=== PATIENT | female | born 1960 | race Caucasian/White ===

== ENCOUNTER 2017-05-04 10:34 | Inpatient (IN) | payer MEDICAID, OTHER ==
[~2017-05-04] VITALS: Ht 167.6 cm; Wt 63.5 kg
[~2017-05-04 10:34] MED LIST: LISI-662 PO
[2017-05-04 11:05] LABS: BASOPHILS % (AUTO) 1.4 % (0.0-2.0); EOSINOPHILS % (AUTO) 1.9 % (1.0-6.0); HEMATOCRIT 32.3 % (36-46); HEMOGLOBIN 10.3 g/dL (12.0-16.0); LYMPHOCYTES # (AUTO) 1.5 K/uL (1.0-4.8); LYMPHOCYTES % (AUTO) 27.5 % (22.0-44.0); MEAN CORPUSCULAR HEMOGLOBIN 27.8 pg (26.0-34.0); MEAN CORPUSCULAR HGB CONC 31.9 G/dL (31.0-37.0); MEAN CORPUSCULAR VOLUME 87 fL (80-100); MONOCYTES # (AUTO) 0.4 K/uL (0.1-1.0); MONOCYTES % (AUTO) 6.5 % (2.0-9.0); NEUTROPHILS # (AUTO) 3.5 K/uL (1.8-7.7); NEUTROPHILS % (AUTO) 62.7 % (40.0-70.0); PLATELET COUNT (AUTO) 414 K/uL (150-450); RED CELL DISTRIBUTION WIDTH 20.7 % (11.5-14.5); WHITE BLOOD COUNT (AUTO) 5.5 K/uL (4.5-11.0)
[2017-05-04] MEDS ORDERED: SUCR1TAB PO (11:14)
[2017-05-04] MEDS ORDERED: TIZA4TAB4 PO (11:14)
[2017-05-04] MEDS ORDERED: AMLO-511 PO (11:14)
[2017-05-04] MEDS ORDERED: FAMO20 PO (11:14)
[2017-05-04] MEDS ORDERED: PANT40TA25 PO (11:14)
[2017-05-04] MEDS ORDERED: CORTSOL AU (11:14)
[2017-05-04] MEDS ORDERED: ONDA4 PO (11:14)
[2017-05-04] MEDS ORDERED: QUET200T PO (11:14)
[2017-05-04] MEDS ORDERED: MELO-273 PO (11:14)
[2017-05-04] MEDS ORDERED: GABA-531 PO (11:14)
[2017-05-04] MEDS ORDERED: DSS100 PO (11:14)
[2017-05-04] MEDS ORDERED: DIAZ2 PO (11:14)
[2017-05-04] MEDS ORDERED: LEVO150 PO (11:14)
[2017-05-04] MEDS ORDERED: LISI1TAB11 PO (11:14)
[2017-05-04] MEDS ORDERED: FERR-89 PO (11:14)
[2017-05-04] MEDS ORDERED: PREM125 PO (11:14)
[2017-05-04] MEDS ORDERED: ARIP10TA14 PO (11:14)
[2017-05-04 11:21] LABS: ALANINE AMINOTRANSFERASE 17 U/L (12-78); ALBUMIN 3.1 g/dL (3.4-5.0); ANION GAP 4 mmol/L (8-16); ASPARTATE AMINOTRANSFERASE 13 U/L (15-37); BILIRUBIN,TOTAL 0.2 mg/dL (0.1-1.0); CALCIUM, TOTAL 8.4 mg/dL (8.8-10.5); CARBON DIOXIDE 29 mmol/L (22-29); CHLORIDE 100 mmol/L (98-107); GLOMERULAR FILTR. RATE CALC > 60 mL/min (>60); POTASSIUM 3.7 mmol/L (3.5-5.1); SODIUM SERUM 133 mmol/L (136-145); UREA NITROGEN, BLOOD 17 mg/dL (7-18)
[2017-05-04] MEDS ORDERED: ZOLPIDEM TARTRATE 10 MG TABLET PO PRN (11:45)
[2017-05-04 12:41] LABS: RBC MORPHOLOGY COMMENT ABNORMAL RBC MORPH
[2017-05-04] MEDS ORDERED: HYDROCODONE/ACETAMINOPHEN 5-325 MG TABLET PO ONE (12:45)
[2017-05-04] MEDS: LORazepam 2 MG TABLET PO PRN ×3 (12:48→22:16)
[2017-05-04 16:32] VITALS: BP 115/73
[2017-05-04] MEDS: OxyCODONE HCL/ACETAMINOPHEN 5-325 MG TABLET PO PRN (16:32)
[2017-05-04 17:32] VITALS: BP 112/72
[2017-05-05 01:33] VITALS: BP 131/95
[2017-05-05] MEDS: HALOPERIDOL 5 MG TABLET PO PRN (01:34)
[2017-05-05 04:00] VITALS: BP 129/91
[2017-05-05] MEDS: OxyCODONE HCL/ACETAMINOPHEN 5-325 MG TABLET PO PRN ×3 (04:01→16:21)
[2017-05-05] MEDS ORDERED: LEVOTHYROXINE SODIUM 150 MCG TABLET PO SCH (06:30)
[2017-05-05] MEDS: FERROUS SULFATE 325 MG EC TABLET PO SCH ×2 (06:40→16:20)
[2017-05-05 08:39] VITALS: BP 121/78
[2017-05-05] MEDS: HYDROCHLOROTHIAZIDE 25 MG TABLET PO SCH (08:44)
[2017-05-05] MEDS: ESTROGENS,CONJUGATED 1.25 MG TABLET PO SCH (08:45)
[2017-05-05] MEDS: DOCUSATE SODIUM 100 MG CAPSULE PO SCH (08:45)
[2017-05-05] MEDS: AmLODIPine BESYLATE 5 MG TABLET PO SCH (08:45)
[2017-05-05] MEDS: MELOXICAM 7.5 MG TABLET PO SCH (08:45)
[2017-05-05] MEDS: FAMOTIDINE 20 MG TABLET PO SCH (08:45)
[2017-05-05 08:48] LABS: HEMOGLOBIN A1C 5.2 % (4.5-6.2)
[2017-05-05] MEDS ORDERED: ARIPiprazole 10 MG TABLET PO SCH (09:00)
[2017-05-05 09:24] LABS: CHOL/HDL RATIO 2.3 (3.9-5.7); THYROID STIMULATING HORMONE 0.11 uIU/mL (0.36-3.74)
[2017-05-05 09:45] VITALS: BP 138/75
[2017-05-05] MEDS: LORazepam 2 MG TABLET PO PRN ×3 (09:45→18:42)
[2017-05-05 16:31] VITALS: BP 112/73
[2017-05-05] MEDS: NICOTINE 21 MG/24 HOUR PATCH TD SCH (17:57)
[2017-05-05] MEDS: QUEtiapine FUMARATE 200 MG TABLET PO SCH (19:58)
[2017-05-06] VITALS (8 sets, daily range): BP systolic 107–144; BP diastolic 76–93
[2017-05-06] MEDS: OxyCODONE HCL/ACETAMINOPHEN 5-325 MG TABLET PO PRN ×3 (00:03→16:53)
[2017-05-06] MEDS: LORazepam 2 MG TABLET PO PRN ×3 (02:35→16:51)
[2017-05-06] MEDS: LEVOTHYROXINE SODIUM 125 MCG TABLET PO SCH (06:43)
[2017-05-06] MEDS: FERROUS SULFATE 325 MG EC TABLET PO SCH ×2 (06:43→16:51)
[2017-05-06] MEDS: SERTRALINE HCL 50 MG TABLET PO SCH (08:38)
[2017-05-06] MEDS: DOCUSATE SODIUM 100 MG CAPSULE PO SCH (08:38)
[2017-05-06] MEDS: AmLODIPine BESYLATE 5 MG TABLET PO SCH (08:38)
[2017-05-06] MEDS: FAMOTIDINE 20 MG TABLET PO SCH (08:39)
[2017-05-06] MEDS: MELOXICAM 7.5 MG TABLET PO SCH (08:39)
[2017-05-06] MEDS: NICOTINE 21 MG/24 HOUR PATCH TD SCH (08:39)
[2017-05-06] MEDS: ESTROGENS,CONJUGATED 1.25 MG TABLET PO SCH (08:39)
[2017-05-06] MEDS: HYDROCHLOROTHIAZIDE 25 MG TABLET PO SCH (08:39)
[2017-05-06] MEDS: HALOPERIDOL 5 MG TABLET PO PRN (10:27)
[2017-05-06 10:43] LABS: HEPATITIS Bs ANTIGEN SCREEN P Negative (Negative); HEPATITIS C AB SCREEN <0.1 s/co ratio (0.0-0.9)
[2017-05-06] MEDS: QUEtiapine FUMARATE 200 MG TABLET PO SCH (20:06)
[2017-05-07] VITALS (8 sets, daily range): BP systolic 108–120; BP diastolic 68–91
[2017-05-07] MEDS: OxyCODONE HCL/ACETAMINOPHEN 5-325 MG TABLET PO PRN ×3 (05:44→18:25)
[2017-05-07] MEDS: LEVOTHYROXINE SODIUM 125 MCG TABLET PO SCH (06:20)
[2017-05-07] MEDS: FERROUS SULFATE 325 MG EC TABLET PO SCH ×2 (06:20→17:30)
[2017-05-07] MEDS: MELOXICAM 7.5 MG TABLET PO SCH (06:57)
[2017-05-07] MEDS: NICOTINE 21 MG/24 HOUR PATCH TD SCH (08:50)
[2017-05-07] MEDS: DOCUSATE SODIUM 100 MG CAPSULE PO SCH (08:51)
[2017-05-07] MEDS: AmLODIPine BESYLATE 5 MG TABLET PO SCH (08:51)
[2017-05-07] MEDS: ESTROGENS,CONJUGATED 1.25 MG TABLET PO SCH (08:51)
[2017-05-07] MEDS: SERTRALINE HCL 50 MG TABLET PO SCH (08:51)
[2017-05-07] MEDS: LORazepam 2 MG TABLET PO PRN ×3 (08:51→18:25)
[2017-05-07] MEDS: FAMOTIDINE 20 MG TABLET PO SCH (08:51)
[2017-05-07] MEDS: HYDROCHLOROTHIAZIDE 25 MG TABLET PO SCH (08:51)
[2017-05-07] MEDS: HALOPERIDOL 5 MG TABLET PO PRN (12:48)
[2017-05-07] MEDS: NEOMYCIN/POLYMYXIN B/HYDROCORT 10 ML OTIC SOLUTION AU SCH ×2 (17:30→20:13)
[2017-05-07] MEDS: QUEtiapine FUMARATE 200 MG TABLET PO SCH (20:13)
[2017-05-08] VITALS (8 sets, daily range): BP systolic 111–143; BP diastolic 61–89
[2017-05-08] MEDS: OxyCODONE HCL/ACETAMINOPHEN 5-325 MG TABLET PO PRN ×4 (01:01→22:39)
[2017-05-08] MEDS: LORazepam 2 MG TABLET PO PRN ×3 (03:57→17:24)
[2017-05-08] MEDS: FERROUS SULFATE 325 MG EC TABLET PO SCH ×2 (06:45→17:00)
[2017-05-08] MEDS: LEVOTHYROXINE SODIUM 125 MCG TABLET PO SCH (06:45)
[2017-05-08] MEDS: MELOXICAM 7.5 MG TABLET PO SCH (06:46)
[2017-05-08] MEDS: NICOTINE 21 MG/24 HOUR PATCH TD SCH (08:51)
[2017-05-08] MEDS: FAMOTIDINE 20 MG TABLET PO SCH (08:53)
[2017-05-08] MEDS: HYDROCHLOROTHIAZIDE 25 MG TABLET PO SCH (08:53)
[2017-05-08] MEDS: SERTRALINE HCL 50 MG TABLET PO SCH (08:53)
[2017-05-08] MEDS: ESTROGENS,CONJUGATED 1.25 MG TABLET PO SCH (08:53)
[2017-05-08] MEDS: AmLODIPine BESYLATE 5 MG TABLET PO SCH (08:53)
[2017-05-08] MEDS: NEOMYCIN/POLYMYXIN B/HYDROCORT 10 ML OTIC SOLUTION AU SCH ×4 (08:54→20:24)
[2017-05-08] MEDS: DOCUSATE SODIUM 100 MG CAPSULE PO SCH (08:55)
[2017-05-08] MEDS: HALOPERIDOL 5 MG TABLET PO PRN (12:59)
[2017-05-08] MEDS ORDERED: ONDANSETRON HCL 4 MG TABLET PO PRN (15:15)
[2017-05-08] MEDS: QUEtiapine FUMARATE 200 MG TABLET PO SCH (20:24)
[2017-05-09] MEDS: LEVOTHYROXINE SODIUM 125 MCG TABLET PO SCH (06:32)
[2017-05-09] MEDS: FERROUS SULFATE 325 MG EC TABLET PO SCH ×2 (06:33→17:10)
[2017-05-09 06:41] VITALS: BP 122/81
[2017-05-09] MEDS: MELOXICAM 7.5 MG TABLET PO SCH (07:09)
[2017-05-09] MEDS: OxyCODONE HCL/ACETAMINOPHEN 5-325 MG TABLET PO PRN ×3 (07:44→21:31)
[2017-05-09 08:00] LABS: BASOPHILS % (AUTO) 1.2 % (0.0-2.0); EOSINOPHILS % (AUTO) 4.8 % (1.0-6.0); HEMATOCRIT 33.1 % (36-46); LYMPHOCYTES # (AUTO) 1.5 K/uL (1.0-4.8); LYMPHOCYTES % (AUTO) 27.9 % (22.0-44.0); MEAN CORPUSCULAR HEMOGLOBIN 29.5 pg (26.0-34.0); MEAN CORPUSCULAR HGB CONC 33.3 G/dL (31.0-37.0); MEAN CORPUSCULAR VOLUME 89 fL (80-100); MONOCYTES # (AUTO) 0.3 K/uL (0.1-1.0); MONOCYTES % (AUTO) 5.3 % (2.0-9.0); NEUTROPHILS # (AUTO) 3.4 K/uL (1.8-7.7); NEUTROPHILS % (AUTO) 60.8 % (40.0-70.0); PLATELET COUNT (AUTO) 365 K/uL (150-450); RED BLOOD CELL COUNT(AUTO) 3.73 MIL/uL (4.00-5.20); RED CELL DISTRIBUTION WIDTH 20.6 % (11.5-14.5); WHITE BLOOD COUNT (AUTO) 5.6 K/uL (4.5-11.0)
[2017-05-09 08:15] VITALS: BP 112/85
[2017-05-09] MEDS: NICOTINE 21 MG/24 HOUR PATCH TD SCH (08:23)
[2017-05-09] MEDS: ESTROGENS,CONJUGATED 1.25 MG TABLET PO SCH (08:23)
[2017-05-09] MEDS: FAMOTIDINE 20 MG TABLET PO SCH (08:23)
[2017-05-09] MEDS: SERTRALINE HCL 100 MG TABLET PO SCH (08:23)
[2017-05-09] MEDS: NEOMYCIN/POLYMYXIN B/HYDROCORT 10 ML OTIC SOLUTION AU SCH ×4 (08:23→20:07)
[2017-05-09] MEDS: HYDROCHLOROTHIAZIDE 25 MG TABLET PO SCH (08:24)
[2017-05-09] MEDS: AmLODIPine BESYLATE 5 MG TABLET PO SCH (08:24)
[2017-05-09] MEDS: DOCUSATE SODIUM 100 MG CAPSULE PO SCH (08:24)
[2017-05-09 08:25] LABS: BILIRUBIN,TOTAL 0.2 mg/dL (0.1-1.0); CALCIUM, TOTAL 8.6 mg/dL (8.8-10.5); CREATININE 1.02 mg/dL (0.60-1.30); POTASSIUM 4.9 mmol/L (3.5-5.1); THYROID STIMULATING HORMONE 0.29 uIU/mL (0.36-3.74); TOTAL PROTEIN, SERUM 6.1 g/dL (6.4-8.2)
[2017-05-09 08:44] VITALS: BP 110/82
[2017-05-09] MEDS: LORazepam 2 MG TABLET PO PRN ×2 (10:13→14:49)
[2017-05-09] MEDS: HALOPERIDOL 5 MG TABLET PO PRN (12:38)
[2017-05-09] MEDS ORDERED: BENZOCAINE 10% 7 GM GEL TP PRN (12:45)
[2017-05-09 14:45] VITALS: BP 112/83
[2017-05-09 16:18] VITALS: BP 106/72
[2017-05-09] MEDS: AMOXICILLIN TRIHYDRATE 500 MG CAPSULE PO SCH (17:10)
[2017-05-09] MEDS: QUEtiapine FUMARATE 200 MG TABLET PO SCH (20:06)
[2017-05-09 21:31] VITALS: BP 110/77
[2017-05-10 01:15] VITALS: BP 107/79
[2017-05-10] MEDS: LORazepam 2 MG TABLET PO PRN ×3 (01:15→12:16)
[2017-05-10 04:55] VITALS: BP 118/90
[2017-05-10] MEDS: OxyCODONE HCL/ACETAMINOPHEN 5-325 MG TABLET PO PRN (04:57)
[2017-05-10] MEDS: FERROUS SULFATE 325 MG EC TABLET PO SCH (06:21)
[2017-05-10] MEDS: LEVOTHYROXINE SODIUM 125 MCG TABLET PO SCH (06:21)
[2017-05-10] MEDS: MELOXICAM 7.5 MG TABLET PO SCH (07:09)
[2017-05-10] MEDS: NEOMYCIN/POLYMYXIN B/HYDROCORT 10 ML OTIC SOLUTION AU SCH ×2 (08:41→12:16)
[2017-05-10] MEDS: FAMOTIDINE 20 MG TABLET PO SCH (08:42)
[2017-05-10] MEDS: ESTROGENS,CONJUGATED 1.25 MG TABLET PO SCH (08:42)
[2017-05-10] MEDS: DOCUSATE SODIUM 100 MG CAPSULE PO SCH (08:42)
[2017-05-10] MEDS: AMOXICILLIN TRIHYDRATE 500 MG CAPSULE PO SCH ×2 (08:42→12:16)
[2017-05-10] MEDS: HYDROCHLOROTHIAZIDE 25 MG TABLET PO SCH (08:43)
[2017-05-10] MEDS: AmLODIPine BESYLATE 5 MG TABLET PO SCH (08:43)
[2017-05-10] MEDS: SERTRALINE HCL 100 MG TABLET PO SCH (08:43)
[2017-05-10] MEDS: NICOTINE 21 MG/24 HOUR PATCH TD SCH (08:43)
[2017-05-10 08:51] VITALS: BP 128/84
[2017-05-10] MEDS: HALOPERIDOL 5 MG TABLET PO PRN (09:10)
[2017-05-10] MEDS ORDERED: SERT100T12 PO (10:34)
== END 2017-05-10 13:00 | disposition home or self-care (01) | DRG 753 ==
LOC: EMS 10:41 → EEVIPCON 10:41 → B2S 14:26 → UNDODISIN 17:10
DX: F31.4 Bipolar disorder, current episode depressed, severe, without psychotic features (principal); R45.851 Suicidal ideations; I10 Essential (primary) hypertension; E03.9 Hypothyroidism, unspecified; D64.9 Anemia, unspecified; K21.9 Gastro-esophageal reflux disease without esophagitis; M54.9 Dorsalgia, unspecified; G89.29 Other chronic pain; Z88.8 Allergy status to other drugs, medicaments and biological substances
CPT/HCPCS: 80074; 82306; 82607; 82746; 83036; 84439; 84443; 87081; 99285; G0480

== ENCOUNTER 2017-05-06 12:44 | Emergency (ER) | payer MEDICAID, OTHER ==
[~2017-05-06] VITALS: Ht 172.7 cm; Wt 63.6 kg
[~2017-05-06 12:44] MED LIST changes: +AMLO-511 PO; +ARIP10TA14 PO; +CORTSOL AU; +DIAZ2 PO; +DSS100 PO; +FAMO20 PO; +FERR-89 PO; +GABA-531 PO; +LEVO150 PO; -LISI-662 PO; +LISI1TAB11 PO; +MELO-273 PO; +ONDA4 PO; +PANT40TA25 PO; +PREM125 PO; +QUET200T PO; +SUCR1TAB PO; +TIZA4TAB4 PO
[2017-05-06 13:51] LABS: BASOPHILS % (AUTO) 1.1 % (0.0-2.0); EOSINOPHILS % (AUTO) 2.9 % (1.0-6.0); HEMATOCRIT 31.8 % (36-46); HEMOGLOBIN 10.5 g/dL (12.0-16.0); LYMPHOCYTES # (AUTO) 1.7 K/uL (1.0-4.8); LYMPHOCYTES % (AUTO) 23.9 % (22.0-44.0); MEAN CORPUSCULAR HEMOGLOBIN 28.9 pg (26.0-34.0); MEAN CORPUSCULAR HGB CONC 32.9 G/dL (31.0-37.0); MEAN CORPUSCULAR VOLUME 88 fL (80-100); MONOCYTES # (AUTO) 0.3 K/uL (0.1-1.0); MONOCYTES % (AUTO) 4.8 % (2.0-9.0); NEUTROPHILS # (AUTO) 4.9 K/uL (1.8-7.7); NEUTROPHILS % (AUTO) 67.3 % (40.0-70.0); PLATELET COUNT (AUTO) 391 K/uL (150-450); RED BLOOD CELL COUNT(AUTO) 3.63 MIL/uL (4.00-5.20); WHITE BLOOD COUNT (AUTO) 7.3 K/uL (4.5-11.0)
[2017-05-06 14:00] LABS: CALCIUM, TOTAL 8.9 mg/dL (8.8-10.5); CREATININE 1.12 mg/dL (0.60-1.30); POTASSIUM 5.2 mmol/L (3.5-5.1)
[2017-05-06 14:06] LABS: ALBUMIN 3.2 g/dL (3.4-5.0); BILIRUBIN,TOTAL 0.2 mg/dL (0.1-1.0); TOTAL PROTEIN, SERUM 6.2 g/dL (6.4-8.2)
[2017-05-06 14:08] LABS: APPEARANCE,URINE CLEAR (CLEAR); GLUCOSE, URINE (UA) NEGATIVE (NEGATIVE); KETONES,URINE NEGATIVE (NEGATIVE); LEUKOCYTE ESTERASE ,URINE NEGATIVE (NEGATIVE); OCCULT BLOOD,URINE NEGATIVE (NEGATIVE); PH,URINE 5.5 (5.0-8.0); PROTEIN,URINE NEGATIVE (NEGATIVE)
[2017-05-06 14:09] LABS: ADD UA MICROSCOPIC NO
[2017-05-06] MEDS ORDERED: LORazepam 1 MG TABLET PO ONE (15:30)
[2017-05-06] MEDS ORDERED: ONDANSETRON HCL 4 MG TABLET PO ONE (15:30)
[2017-05-06] MEDS ORDERED: HYDROCODONE/ACETAMINOPHEN 5-325 MG TABLET PO ONE (15:30)
[2017-05-06 15:37] VITALS: BP 111/75
== END 2017-05-06 16:23 | disposition home or self-care (01) ==
LOC: EMS 12:47
DX: R07.9 Chest pain, unspecified (principal); R05 Cough; I10 Essential (primary) hypertension; F17.210 Nicotine dependence, cigarettes, uncomplicated; Z88.8 Allergy status to other drugs, medicaments and biological substances
CPT/HCPCS: 36415; 71010; 80053; 81003; 84484; 85025; 93005; 99285; Q0162

== ENCOUNTER 2018-01-23 08:49 | Emergency (ER) | payer OTHER ==
[~2018-01-23] VITALS: Ht 167.6 cm; Wt 63.6 kg
[~2018-01-23 08:49] MED LIST changes: -ARIP10TA14 PO; -DIAZ2 PO; -GABA-531 PO; -LISI1TAB11 PO; +MELO-107 PO; -MELO-273 PO; -ONDA4 PO; -PANT40TA25 PO; +SERT100T12 PO; -SUCR1TAB PO; -TIZA4TAB4 PO
[2018-01-23] MEDS ORDERED: BUDE10.2 IH (09:01)
[2018-01-23] MEDS ORDERED: ONDANSETRON HCL 4 MG/2 ML VIAL IVP ONE (09:30)
[2018-01-23] MEDS ORDERED: MORPHINE SULFATE 4 MG/ML SYRINGE IVP ONE (09:30)
[2018-01-23] MEDS ORDERED: ASPIRIN 81 MG CHEWABLE TABLET PO ONE (09:30)
[2018-01-23 09:54] LABS: BASOPHILS % (AUTO) 0.6 % (0.0-2.0); EOSINOPHILS % (AUTO) 3.3 % (1.0-6.0); HEMATOCRIT 31.3 % (36-46); HEMOGLOBIN 10.5 g/dL (12.0-16.0); LYMPHOCYTES # (AUTO) 1.1 K/uL (1.0-4.8); LYMPHOCYTES % (AUTO) 15.6 % (22.0-44.0); MEAN CORPUSCULAR HEMOGLOBIN 28.9 pg (26.0-34.0); MEAN CORPUSCULAR HGB CONC 33.5 G/dL (31.0-37.0); MEAN CORPUSCULAR VOLUME 86 fL (80-100); MONOCYTES # (AUTO) 0.3 K/uL (0.1-1.0); MONOCYTES % (AUTO) 4.8 % (2.0-9.0); NEUTROPHILS # (AUTO) 5.4 K/uL (1.8-7.7); NEUTROPHILS % (AUTO) 75.7 % (40.0-70.0); PLATELET COUNT (AUTO) 493 K/uL (150-450); RED BLOOD CELL COUNT(AUTO) 3.64 MIL/uL (4.00-5.20); RED CELL DISTRIBUTION WIDTH 18.1 % (11.5-14.5)
[2018-01-23 10:02] LABS: ANION GAP 10 mmol/L (8-16); CALCIUM, TOTAL 9.1 mg/dL (8.8-10.5); CARBON DIOXIDE 26 mmol/L (22-29); CHLORIDE 101 mmol/L (98-107); CREATININE 0.84 mg/dL (0.60-1.30); GLOMERULAR FILTR. RATE CALC > 60 mL/min (>60); GLUCOSE,RANDOM 79 mg/dL (70-110); POTASSIUM 4.3 mmol/L (3.5-5.1); SODIUM SERUM 137 mmol/L (136-145); UREA NITROGEN, BLOOD 14 mg/dL (7-18)
[2018-01-23 10:08] LABS: ALANINE AMINOTRANSFERASE 17 U/L (12-78); ALBUMIN 3.4 g/dL (3.4-5.0); ALKALINE PHOSPHATASE 115 U/L (46-116); ASPARTATE AMINOTRANSFERASE 13 U/L (15-37); BILIRUBIN,TOTAL 0.3 mg/dL (0.1-1.0); LIPASE 163 U/L (73-393); TOTAL PROTEIN, SERUM 7.4 g/dL (6.4-8.2)
[2018-01-23 10:17] LABS: B-TYPE NATRIURETIC PEPTIDE 36 pg/mL (0-100)
[2018-01-23] MEDS ORDERED: KETOROLAC TROMETHAMINE 30 MG/ML VIAL IVP ONE (10:30)
[2018-01-23] MEDS ORDERED: AZITHROMYCIN 250 MG TABLET PO ONE (10:30)
[2018-01-23 11:20] LABS: INFLUENZA TYPE A NEGATIVE FOR TYPE A (NEGATIVE); INFLUENZA TYPE B NEGATIVE FOR TYPE B (NEGATIVE)
[2018-01-23 13:07] VITALS: BP 104/78
[2018-01-24] MEDS ORDERED: LEVO125 PO (12:12)
== END 2018-01-23 13:14 | disposition home or self-care (01) ==
LOC: EMS 08:49
DX: J44.9 Chronic obstructive pulmonary disease, unspecified (principal); J18.9 Pneumonia, unspecified organism; I10 Essential (primary) hypertension; E03.9 Hypothyroidism, unspecified; Z88.8 Allergy status to other drugs, medicaments and biological substances
CPT/HCPCS: 36415; 71046; 80053; 83690; 83880; 84484; 85025; 87804; 93005; 96374; 96375; 99285; J1885; J2270; J2405

== ENCOUNTER 2018-01-24 09:33 | Emergency (ER) | payer OTHER ==
[~2018-01-24] VITALS: Ht 167.6 cm; Wt 63.6 kg
[~2018-01-24 09:33] MED LIST changes: +BUDE10.2 IH; -CORTSOL AU; -DSS100 PO; -FAMO20 PO; -FERR-89 PO; -QUET200T PO
[2018-01-24] MEDS ORDERED: KETOROLAC TROMETHAMINE 30 MG/ML VIAL IVP ONE (10:45)
[2018-01-24] MEDS ORDERED: SODIUM CHLORIDE 0.9% 1,000 ML IV ONE (10:45)
[2018-01-24] MEDS ORDERED: ONDANSETRON HCL 4 MG/2 ML VIAL IVP ONE ×2 (10:45→15:00)
[2018-01-24] MEDS ORDERED: LEVO125 PO (12:12)
[2018-01-24 12:13] LABS: BASOPHILS % (AUTO) 0.4 % (0.0-2.0); EOSINOPHILS % (AUTO) 0.1 % (1.0-6.0); HEMATOCRIT 29.8 % (36-46); HEMOGLOBIN 9.9 g/dL (12.0-16.0); LYMPHOCYTES # (AUTO) 0.4 K/uL (1.0-4.8); LYMPHOCYTES % (AUTO) 4.9 % (22.0-44.0); MEAN CORPUSCULAR HEMOGLOBIN 28.6 pg (26.0-34.0); MEAN CORPUSCULAR HGB CONC 33.3 G/dL (31.0-37.0); MEAN CORPUSCULAR VOLUME 86 fL (80-100); MONOCYTES # (AUTO) 0.1 K/uL (0.1-1.0); MONOCYTES % (AUTO) 0.7 % (2.0-9.0); NEUTROPHILS # (AUTO) 7.7 K/uL (1.8-7.7); PLATELET COUNT (AUTO) 468 K/uL (150-450); RED BLOOD CELL COUNT(AUTO) 3.47 MIL/uL (4.00-5.20); RED CELL DISTRIBUTION WIDTH 18.1 % (11.5-14.5)
[2018-01-24 12:14] LABS: NEUTROPHILS % (AUTO) 93.9 % (40.0-70.0)
[2018-01-24] MEDS ORDERED: MORPHINE SULFATE 2 MG/ML SYRINGE IVP ONE ×2 (12:15→14:45)
[2018-01-24 12:25] LABS: INR 0.9 (0.9-1.1); PROTHROMBIN TIME 9.8 SEC (9.4-11.6)
[2018-01-24 12:28] LABS: ANION GAP 9 mmol/L (8-16); CALCIUM, TOTAL 8.5 mg/dL (8.8-10.5); CARBON DIOXIDE 24 mmol/L (22-29); CHLORIDE 103 mmol/L (98-107); CREATININE 0.88 mg/dL (0.60-1.30); GLOMERULAR FILTR. RATE CALC > 60 mL/min (>60); GLUCOSE,RANDOM 99 mg/dL (70-110); POTASSIUM 4.6 mmol/L (3.5-5.1); SODIUM SERUM 136 mmol/L (136-145); UREA NITROGEN, BLOOD 18 mg/dL (7-18)
[2018-01-24 12:33] LABS: ALANINE AMINOTRANSFERASE 13 U/L (12-78); ALKALINE PHOSPHATASE 97 U/L (46-116); ASPARTATE AMINOTRANSFERASE 15 U/L (15-37); BILIRUBIN,TOTAL 0.3 mg/dL (0.1-1.0); CREATINE KINASE, TOTAL 39 U/L (26-192); TOTAL PROTEIN, SERUM 6.6 g/dL (6.4-8.2)
[2018-01-24 12:54] LABS: B-TYPE NATRIURETIC PEPTIDE 38 pg/mL (0-100)
[2018-01-24 13:15] LABS: APPEARANCE,URINE CLEAR (CLEAR); BILIRUBIN,URINE NEGATIVE (NEGATIVE); GLUCOSE, URINE (UA) NEGATIVE (NEGATIVE); KETONES,URINE TRACE mg/dL (NEGATIVE); LEUKOCYTE ESTERASE ,URINE NEGATIVE (NEGATIVE); NITRATE,URINE NEGATIVE (NEGATIVE); OCCULT BLOOD,URINE NEGATIVE (NEGATIVE); PROTEIN,URINE NEGATIVE (NEGATIVE)
[2018-01-24] MEDS ORDERED: IPRATROPIUM BROMIDE 0.5 MG/2.5 ML NEB SOLUTION NEB ONE (13:30)
[2018-01-24] MEDS ORDERED: ALBUTEROL SULFATE 2.5 MG/0.5 ML NEB SOLUTION NEB ONE (13:30)
[2018-01-24 15:43] VITALS: BP 148/85
== END 2018-01-24 16:09 | disposition home or self-care (01) ==
LOC: EMS 09:35
DX: R11.2 Nausea with vomiting, unspecified (principal); R07.89 Other chest pain; M54.2 Cervicalgia; R10.84 Generalized abdominal pain; J44.9 Chronic obstructive pulmonary disease, unspecified; I10 Essential (primary) hypertension; E03.9 Hypothyroidism, unspecified
CPT/HCPCS: 36415; 71045; 80053; 81003; 82550; 83880; 84484; 85025; 85610; 85730; 93005; 94640; 96361; 96374; 96375; 96376; 99285; J1885; J2270; J2405; J7030; J7613

== ENCOUNTER 2018-02-05 09:23 | Inpatient (IN) | payer OTHER ==
[~2018-02-05] VITALS: Ht 167.6 cm; Wt 58.9 kg
[~2018-02-05 09:23] MED LIST changes: +LEVO125 PO; -LEVO150 PO
[2018-02-05 10:13] LABS: BASOPHILS % (AUTO) 1.4 % (0.0-2.0); EOSINOPHILS % (AUTO) 3.8 % (1.0-6.0); HEMATOCRIT 29.6 % (36-46); HEMOGLOBIN 9.9 g/dL (12.0-16.0); LYMPHOCYTES # (AUTO) 1.8 K/uL (1.0-4.8); LYMPHOCYTES % (AUTO) 30.4 % (22.0-44.0); MEAN CORPUSCULAR HEMOGLOBIN 28.4 pg (26.0-34.0); MEAN CORPUSCULAR HGB CONC 33.3 G/dL (31.0-37.0); MEAN CORPUSCULAR VOLUME 85 fL (80-100); MONOCYTES # (AUTO) 0.4 K/uL (0.1-1.0); MONOCYTES % (AUTO) 6.7 % (2.0-9.0); NEUTROPHILS # (AUTO) 3.5 K/uL (1.8-7.7); NEUTROPHILS % (AUTO) 57.7 % (40.0-70.0); PLATELET COUNT (AUTO) 410 K/uL (150-450); RED BLOOD CELL COUNT(AUTO) 3.47 MIL/uL (4.00-5.20); RED CELL DISTRIBUTION WIDTH 16.5 % (11.5-14.5)
[2018-02-05 10:24] LABS: ANION GAP 12 mmol/L (8-16); CALCIUM, TOTAL 8.7 mg/dL (8.8-10.5); CARBON DIOXIDE 23 mmol/L (22-29); CHLORIDE 101 mmol/L (98-107); CREATININE 0.83 mg/dL (0.60-1.30); GLOMERULAR FILTR. RATE CALC > 60 mL/min (>60); GLUCOSE,RANDOM 87 mg/dL (70-110); POTASSIUM 3.9 mmol/L (3.5-5.1); SODIUM SERUM 136 mmol/L (136-145); UREA NITROGEN, BLOOD 10 mg/dL (7-18)
[2018-02-05 10:26] LABS: INR 0.9 (0.9-1.1); PROTHROMBIN TIME 9.5 SEC (9.4-11.6)
[2018-02-05 10:31] LABS: ALANINE AMINOTRANSFERASE 15 U/L (12-78); ALBUMIN 3.2 g/dL (3.4-5.0); ALKALINE PHOSPHATASE 72 U/L (46-116); ASPARTATE AMINOTRANSFERASE 13 U/L (15-37); BILIRUBIN,TOTAL 0.3 mg/dL (0.1-1.0); CREATINE KINASE, TOTAL 39 U/L (26-192); TOTAL PROTEIN, SERUM 6.4 g/dL (6.4-8.2)
[2018-02-05 10:35] LABS: B-TYPE NATRIURETIC PEPTIDE 18 pg/mL (0-100)
[2018-02-05 10:39] LABS: BILIRUBIN,URINE NEGATIVE (NEGATIVE); GLUCOSE, URINE (UA) NEGATIVE (NEGATIVE); KETONES,URINE NEGATIVE (NEGATIVE); LEUKOCYTE ESTERASE ,URINE NEGATIVE (NEGATIVE); NITRATE,URINE NEGATIVE (NEGATIVE); OCCULT BLOOD,URINE NEGATIVE (NEGATIVE); PH,URINE 5.5 (5.0-8.0); PROTEIN,URINE NEGATIVE (NEGATIVE)
[2018-02-05 10:40] LABS: APPEARANCE,URINE HAZY (CLEAR)
[2018-02-05 10:50] LABS: LIPASE 227 U/L (73-393)
[2018-02-05] MEDS ORDERED: MORPHINE SULFATE 4 MG/ML SYRINGE IVP ONE (11:15)
[2018-02-05] MEDS ORDERED: 0.9% SODIUM CHLORIDE 10 ML SYRINGE IVP PRN (11:45)
[2018-02-05] MEDS ORDERED: ACETAMINOPHEN 325 MG TABLET PO PRN (11:45)
[2018-02-05] MEDS ORDERED: ONDANSETRON HCL 4 MG/2 ML VIAL IVP PRN ×2 (11:45→18:45)
[2018-02-05 13:00] VITALS: BP 113/79
[2018-02-05] MEDS ORDERED: HYDROCODONE/ACETAMINOPHEN 10-325 MG TABLET PO PRN (14:15)
[2018-02-05 15:14] VITALS: BP 98/60
[2018-02-05] MEDS ORDERED: ACETAMINOPHEN/CODEINE 300-30 MG TABLET PO PRN (18:45)
[2018-02-05] MEDS ORDERED: HYDROCODONE/ACETAMINOPHEN 5-325 MG TABLET PO PRN (18:45)
[2018-02-05] MEDS: AmLODIPine BESYLATE 5 MG TABLET PO SCH (18:45)
[2018-02-05] MEDS: SERTRALINE HCL 100 MG TABLET PO SCH (18:45)
[2018-02-05] MEDS ORDERED: BISACODYL 10 MG RECTAL RECTAL SUPPOSITORY PR PRN (18:45)
[2018-02-05] MEDS: MELOXICAM 7.5 MG TABLET PO SCH (18:45)
[2018-02-05] MEDS: ESTROGENS,CONJUGATED 1.25 MG TABLET PO SCH (18:45)
[2018-02-05] MEDS: ENOXAPARIN SODIUM 40 MG/0.4 ML PF SYRINGE SQ SCH (19:25)
[2018-02-05] MEDS: PANTOPRAZOLE SODIUM 40 MG DR TABLET PO SCH (19:26)
[2018-02-05] MEDS: MORPHINE SULFATE 2 MG/ML SYRINGE IVP PRN ×2 (19:29→23:01)
[2018-02-05 19:56] VITALS: BP 124/75
[2018-02-05 20:03] LABS: BASOPHILS % (AUTO) 1.5 % (0.0-2.0); EOSINOPHILS % (AUTO) 4.5 % (1.0-6.0); HEMATOCRIT 28.1 % (36-46); HEMOGLOBIN 9.2 g/dL (12.0-16.0); LYMPHOCYTES # (AUTO) 2.7 K/uL (1.0-4.8); LYMPHOCYTES % (AUTO) 33.4 % (22.0-44.0); MEAN CORPUSCULAR HEMOGLOBIN 28.2 pg (26.0-34.0); MEAN CORPUSCULAR HGB CONC 32.9 G/dL (31.0-37.0); MEAN CORPUSCULAR VOLUME 86 fL (80-100); MONOCYTES # (AUTO) 0.7 K/uL (0.1-1.0); MONOCYTES % (AUTO) 8.5 % (2.0-9.0); NEUTROPHILS # (AUTO) 4.2 K/uL (1.8-7.7); NEUTROPHILS % (AUTO) 52.1 % (40.0-70.0); PLATELET COUNT (AUTO) 365 K/uL (150-450); RED BLOOD CELL COUNT(AUTO) 3.28 MIL/uL (4.00-5.20); RED CELL DISTRIBUTION WIDTH 16.2 % (11.5-14.5)
[2018-02-05 20:14] LABS: ALBUMIN 2.7 g/dL (3.4-5.0); BILIRUBIN,TOTAL 0.2 mg/dL (0.1-1.0); CALCIUM, TOTAL 8.3 mg/dL (8.8-10.5); CREATININE 1.1 mg/dL (0.60-1.30); INR 0.9 (0.9-1.1); POTASSIUM 4.4 mmol/L (3.5-5.1); PROTHROMBIN TIME 9.5 SEC (9.4-11.6); TOTAL PROTEIN, SERUM 5.8 g/dL (6.4-8.2)
[2018-02-05] MEDS: DOCUSATE SODIUM 100 MG CAPSULE PO SCH (21:27)
[2018-02-05] MEDS: HYDROCODONE/ACETAMINOPHEN 10-325 MG TABLET PO PRN (21:28)
[2018-02-05] MEDS: BUDESONIDE/FORMOTEROL FUMARATE 160-4.5 MCG/PUFF 6.9 GM INHALER IH SCH (21:28)
[2018-02-05] MEDS: TEMAZEPAM 15 MG CAPSULE PO PRN (22:04)
[2018-02-05] MEDS: IPRATROPIUM BROMIDE 0.5 MG/2.5 ML NEB SOLUTION NEB SCH (23:09)
[2018-02-05] MEDS: ALBUTEROL SULFATE 2.5 MG/0.5 ML NEB SOLUTION NEB SCH (23:09)
[2018-02-05 23:41] VITALS: BP 106/72
[2018-02-06] MEDS: MORPHINE SULFATE 2 MG/ML SYRINGE IVP PRN ×7 (03:02→22:01)
[2018-02-06 04:44] VITALS: BP 129/81
[2018-02-06] MEDS: HYDROCODONE/ACETAMINOPHEN 10-325 MG TABLET PO PRN ×4 (04:58→20:11)
[2018-02-06 06:05] LABS: BASOPHILS % (AUTO) 1.3 % (0.0-2.0); EOSINOPHILS % (AUTO) 5.1 % (1.0-6.0); HEMATOCRIT 28.6 % (36-46); HEMOGLOBIN 9.5 g/dL (12.0-16.0); LYMPHOCYTES # (AUTO) 2.6 K/uL (1.0-4.8); LYMPHOCYTES % (AUTO) 40.3 % (22.0-44.0); MEAN CORPUSCULAR HEMOGLOBIN 28.6 pg (26.0-34.0); MEAN CORPUSCULAR HGB CONC 33.4 G/dL (31.0-37.0); MEAN CORPUSCULAR VOLUME 86 fL (80-100); MONOCYTES # (AUTO) 0.5 K/uL (0.1-1.0); MONOCYTES % (AUTO) 7.9 % (2.0-9.0); NEUTROPHILS % (AUTO) 45.4 % (40.0-70.0); PLATELET COUNT (AUTO) 335 K/uL (150-450); RED BLOOD CELL COUNT(AUTO) 3.33 MIL/uL (4.00-5.20); RED CELL DISTRIBUTION WIDTH 16.1 % (11.5-14.5)
[2018-02-06] MEDS: LEVOTHYROXINE SODIUM 125 MCG TABLET PO SCH (06:05)
[2018-02-06 06:31] LABS: ALANINE AMINOTRANSFERASE 11 U/L (12-78); ALBUMIN 2.6 g/dL (3.4-5.0); ALKALINE PHOSPHATASE 65 U/L (46-116); ANION GAP 8 mmol/L (8-16); ASPARTATE AMINOTRANSFERASE 12 U/L (15-37); BILIRUBIN,TOTAL 0.2 mg/dL (0.1-1.0); CALCIUM, TOTAL 8.4 mg/dL (8.8-10.5); CARBON DIOXIDE 26 mmol/L (22-29); CHLORIDE 103 mmol/L (98-107); CREATININE 0.89 mg/dL (0.60-1.30); GLOMERULAR FILTR. RATE CALC > 60 mL/min (>60); GLUCOSE,RANDOM 86 mg/dL (70-110); POTASSIUM 4.1 mmol/L (3.5-5.1); SODIUM SERUM 137 mmol/L (136-145); TOTAL PROTEIN, SERUM 5.7 g/dL (6.4-8.2); UREA NITROGEN, BLOOD 18 mg/dL (7-18)
[2018-02-06 07:33] VITALS: BP 102/71
[2018-02-06] MEDS: AmLODIPine BESYLATE 5 MG TABLET PO SCH (08:05)
[2018-02-06] MEDS: PANTOPRAZOLE SODIUM 40 MG DR TABLET PO SCH (08:05)
[2018-02-06] MEDS: ENOXAPARIN SODIUM 40 MG/0.4 ML PF SYRINGE SQ SCH (08:05)
[2018-02-06] MEDS: DOCUSATE SODIUM 100 MG CAPSULE PO SCH ×2 (08:05→20:10)
[2018-02-06] MEDS: SERTRALINE HCL 100 MG TABLET PO SCH (08:06)
[2018-02-06] MEDS: MELOXICAM 7.5 MG TABLET PO SCH (08:06)
[2018-02-06] MEDS: ESTROGENS,CONJUGATED 1.25 MG TABLET PO SCH (08:06)
[2018-02-06] MEDS: BUDESONIDE/FORMOTEROL FUMARATE 160-4.5 MCG/PUFF 6.9 GM INHALER IH SCH ×2 (08:07→20:10)
[2018-02-06] MEDS: IPRATROPIUM BROMIDE 0.5 MG/2.5 ML NEB SOLUTION NEB SCH ×3 (08:50→20:29)
[2018-02-06] MEDS: ALBUTEROL SULFATE 2.5 MG/0.5 ML NEB SOLUTION NEB SCH ×3 (08:50→20:29)
[2018-02-06 11:26] VITALS: BP 96/56
[2018-02-06 15:42] VITALS: BP 97/64
[2018-02-06 19:42] VITALS: BP 108/65
[2018-02-06] MEDS: TEMAZEPAM 15 MG CAPSULE PO PRN (20:49)
[2018-02-07] VITALS (8 sets, daily range): BP systolic 94–138; BP diastolic 60–88
[2018-02-07] MEDS: MORPHINE SULFATE 2 MG/ML SYRINGE IVP PRN ×7 (01:17→21:15)
[2018-02-07] MEDS: LEVOTHYROXINE SODIUM 125 MCG TABLET PO SCH (06:55)
[2018-02-07] MEDS: ALBUTEROL SULFATE 2.5 MG/0.5 ML NEB SOLUTION NEB SCH ×3 (08:42→21:04)
[2018-02-07] MEDS: IPRATROPIUM BROMIDE 0.5 MG/2.5 ML NEB SOLUTION NEB SCH ×3 (08:42→21:04)
[2018-02-07] MEDS: MELOXICAM 7.5 MG TABLET PO SCH (10:05)
[2018-02-07] MEDS: SERTRALINE HCL 100 MG TABLET PO SCH (10:05)
[2018-02-07] MEDS: DOCUSATE SODIUM 100 MG CAPSULE PO SCH ×2 (10:06→20:08)
[2018-02-07] MEDS: AmLODIPine BESYLATE 5 MG TABLET PO SCH (10:06)
[2018-02-07] MEDS: PANTOPRAZOLE SODIUM 40 MG DR TABLET PO SCH (10:06)
[2018-02-07] MEDS: HYDROCODONE/ACETAMINOPHEN 10-325 MG TABLET PO PRN ×2 (10:07→14:07)
[2018-02-07] MEDS: ESTROGENS,CONJUGATED 1.25 MG TABLET PO SCH (10:07)
[2018-02-07] MEDS: ENOXAPARIN SODIUM 40 MG/0.4 ML PF SYRINGE SQ SCH (10:09)
[2018-02-07] MEDS: BUDESONIDE/FORMOTEROL FUMARATE 160-4.5 MCG/PUFF 6.9 GM INHALER IH SCH ×2 (10:09→21:00)
[2018-02-07] MEDS: TEMAZEPAM 15 MG CAPSULE PO PRN (20:07)
[2018-02-08] MEDS: MORPHINE SULFATE 2 MG/ML SYRINGE IVP PRN ×5 (00:19→12:35)
[2018-02-08 04:45] VITALS: BP 99/68
[2018-02-08] MEDS: LEVOTHYROXINE SODIUM 125 MCG TABLET PO SCH (06:22)
[2018-02-08] MEDS: ALBUTEROL SULFATE 2.5 MG/0.5 ML NEB SOLUTION NEB SCH (07:38)
[2018-02-08] MEDS: IPRATROPIUM BROMIDE 0.5 MG/2.5 ML NEB SOLUTION NEB SCH (07:38)
[2018-02-08 08:04] VITALS: BP 108/62
[2018-02-08] MEDS: ENOXAPARIN SODIUM 40 MG/0.4 ML PF SYRINGE SQ SCH (08:35)
[2018-02-08] MEDS: ESTROGENS,CONJUGATED 1.25 MG TABLET PO SCH (08:35)
[2018-02-08] MEDS: AmLODIPine BESYLATE 5 MG TABLET PO SCH (08:36)
[2018-02-08] MEDS: MELOXICAM 7.5 MG TABLET PO SCH (08:36)
[2018-02-08] MEDS: SERTRALINE HCL 100 MG TABLET PO SCH (08:36)
[2018-02-08] MEDS: PANTOPRAZOLE SODIUM 40 MG DR TABLET PO SCH (08:36)
[2018-02-08] MEDS: DOCUSATE SODIUM 100 MG CAPSULE PO SCH (08:41)
[2018-02-08] MEDS: BUDESONIDE/FORMOTEROL FUMARATE 160-4.5 MCG/PUFF 6.9 GM INHALER IH SCH (10:29)
[2018-02-08 11:14] VITALS: BP 109/75
[2018-02-08] MEDS ORDERED: PERCT10 PO (13:50)
== END 2018-02-08 14:40 | disposition home or self-care (01) | DRG 203 ==
LOC: EMS 09:26 → 5S 11:44 → 6N 02-06 23:19
PROVIDERS: ADMIT Internal Medicine; ATTEND Internal Medicine
DX: R07.89 Other chest pain (principal); I10 Essential (primary) hypertension; M94.0 Chondrocostal junction syndrome [Tietze]; E03.9 Hypothyroidism, unspecified; F41.9 Anxiety disorder, unspecified; G89.4 Chronic pain syndrome; M50.30 Other cervical disc degeneration, unspecified cervical region; F32.9 Major depressive disorder, single episode, unspecified; J44.9 Chronic obstructive pulmonary disease, unspecified; Z98.1 Arthrodesis status; Z82.49 Family history of ischemic heart disease and other diseases of the circulatory system; Q67.6 Pectus excavatum; Z88.8 Allergy status to other drugs, medicaments and biological substances
CPT/HCPCS: 87081; 93005; 94640; 96374; 99285; J1650; J2270

== ENCOUNTER 2018-03-07 21:03 | Emergency (ER) | payer OTHER ==
[~2018-03-07] VITALS: Ht 172.7 cm; Wt 62.7 kg
[~2018-03-07 21:03] MED LIST changes: -AMLO-511 PO; -MELO-107 PO; -PREM125 PO
[2018-03-07 21:30] LABS: BASOPHILS % (AUTO) 1.2 % (0.0-2.0); EOSINOPHILS % (AUTO) 1.3 % (1.0-6.0); HEMATOCRIT 26.2 % (36-46); HEMOGLOBIN 8.7 g/dL (12.0-16.0); LYMPHOCYTES # (AUTO) 2.3 K/uL (1.0-4.8); LYMPHOCYTES % (AUTO) 34.3 % (22.0-44.0); MEAN CORPUSCULAR HEMOGLOBIN 27.4 pg (26.0-34.0); MEAN CORPUSCULAR HGB CONC 33.1 G/dL (31.0-37.0); MEAN CORPUSCULAR VOLUME 83 fL (80-100); MONOCYTES # (AUTO) 0.4 K/uL (0.1-1.0); MONOCYTES % (AUTO) 6.2 % (2.0-9.0); NEUTROPHILS # (AUTO) 3.9 K/uL (1.8-7.7); PLATELET COUNT (AUTO) 388 K/uL (150-450); RED BLOOD CELL COUNT(AUTO) 3.17 MIL/uL (4.00-5.20); RED CELL DISTRIBUTION WIDTH 15.5 % (11.5-14.5)
[2018-03-07 21:39] LABS: ANION GAP 10 mmol/L (8-16); CALCIUM, TOTAL 8.2 mg/dL (8.8-10.5); CARBON DIOXIDE 24 mmol/L (22-29); CHLORIDE 103 mmol/L (98-107); CREATININE 0.88 mg/dL (0.60-1.30); GLOMERULAR FILTR. RATE CALC > 60 mL/min (>60); GLUCOSE,RANDOM 94 mg/dL (70-110); POTASSIUM 3.8 mmol/L (3.5-5.1); SODIUM SERUM 137 mmol/L (136-145); UREA NITROGEN, BLOOD 17 mg/dL (7-18)
[2018-03-07 21:43] LABS: INR 0.9 (0.9-1.1); PROTHROMBIN TIME 9.6 SEC (9.4-11.6)
[2018-03-07 21:46] LABS: B-TYPE NATRIURETIC PEPTIDE 29 pg/mL (0-100)
[2018-03-07] MEDS ORDERED: ASPIRIN 325 MG TABLET PO ONE (22:00)
[2018-03-07] MEDS ORDERED: ONDANSETRON HCL 4 MG/2 ML VIAL IVP ONE (22:00)
[2018-03-07] MEDS ORDERED: FentaNYL CITRATE-PF 100 MCG/2 ML VIAL IVP ONE (22:00)
[2018-03-07 22:03] LABS: ALANINE AMINOTRANSFERASE 11 U/L (12-78); ALBUMIN 2.8 g/dL (3.4-5.0); ALKALINE PHOSPHATASE 70 U/L (46-116); ASPARTATE AMINOTRANSFERASE 12 U/L (15-37); BILIRUBIN,TOTAL 0.3 mg/dL (0.1-1.0); CREATINE KINASE, TOTAL 103 U/L (26-192)
[2018-03-08] MEDS ORDERED: FentaNYL CITRATE-PF 100 MCG/2 ML VIAL IVP ONE
[2018-03-08] MEDS ORDERED: POTASSIUM CHLORIDE 20 MEQ ER TABLET PO ONE (00:15)
[2018-03-08 00:26] VITALS: BP 110/59
== END 2018-03-08 00:50 | disposition home or self-care (01) ==
LOC: EMS 21:04
DX: R55 Syncope and collapse (principal); R06.02 Shortness of breath; R42 Dizziness and giddiness; R07.2 Precordial pain; R00.2 Palpitations; J44.9 Chronic obstructive pulmonary disease, unspecified; I10 Essential (primary) hypertension; E03.9 Hypothyroidism, unspecified; I25.2 Old myocardial infarction; F17.210 Nicotine dependence, cigarettes, uncomplicated; Z76.5 Malingerer [conscious simulation]
CPT/HCPCS: 36415; 71045; 80053; 82550; 82553; 83880; 84484; 85025; 85610; 85730; 93005; 96374; 96375; 96376; 99285; J2405; J3010

== ENCOUNTER 2018-03-12 13:42 | Emergency (ER) | payer OTHER ==
[~2018-03-12] VITALS: Ht 167.6 cm; Wt 61.4 kg
[2018-03-12] MEDS ORDERED: NITROGLYCERIN 2% (1 GM=INCH) PACKET TP ONE (14:30)
[2018-03-12] MEDS ORDERED: ASPIRIN 81 MG CHEWABLE TABLET PO ONE (14:30)
[2018-03-12] MEDS ORDERED: HYDR25TA PO (14:36)
[2018-03-12] MEDS ORDERED: FERR325T24 PO (14:36)
[2018-03-12] MEDS ORDERED: MELO-107 PO (14:36)
[2018-03-12] MEDS ORDERED: DICL75TA5 PO (14:36)
[2018-03-12] MEDS ORDERED: AMLO-511 PO (14:36)
[2018-03-12] MEDS ORDERED: ARIP10TA8 PO (14:36)
[2018-03-12] MEDS ORDERED: MET500 PO (14:36)
[2018-03-12] MEDS ORDERED: DOXE50 PO (14:36)
[2018-03-12] MEDS ORDERED: QUET100T PO (14:36)
[2018-03-12] MEDS ORDERED: FAMO20 PO (14:36)
[2018-03-12] MEDS ORDERED: TEMA15CA PO (14:36)
[2018-03-12] MEDS ORDERED: PREM125 PO (14:36)
[2018-03-12] MEDS ORDERED: SERT100T12 PO (14:36)
[2018-03-12] MEDS ORDERED: LISI-661 PO (14:36)
[2018-03-12 15:21] LABS: EOSINOPHILS % (AUTO) 1.2 % (1.0-6.0); HEMATOCRIT 27.4 % (36-46); HEMOGLOBIN 9.3 g/dL (12.0-16.0); LYMPHOCYTES # (AUTO) 2.1 K/uL (1.0-4.8); LYMPHOCYTES % (AUTO) 27.8 % (22.0-44.0); MEAN CORPUSCULAR HEMOGLOBIN 28.2 pg (26.0-34.0); MEAN CORPUSCULAR HGB CONC 34.2 G/dL (31.0-37.0); MEAN CORPUSCULAR VOLUME 82 fL (80-100); MONOCYTES # (AUTO) 0.5 K/uL (0.1-1.0); MONOCYTES % (AUTO) 6.2 % (2.0-9.0); NEUTROPHILS # (AUTO) 4.7 K/uL (1.8-7.7); NEUTROPHILS % (AUTO) 63.8 % (40.0-70.0); PLATELET COUNT (AUTO) 388 K/uL (150-450); RED BLOOD CELL COUNT(AUTO) 3.32 MIL/uL (4.00-5.20); RED CELL DISTRIBUTION WIDTH 16.1 % (11.5-14.5)
[2018-03-12 15:33] LABS: ANION GAP 5 mmol/L (8-16); CALCIUM, TOTAL 8.2 mg/dL (8.8-10.5); CARBON DIOXIDE 25 mmol/L (22-29); CHLORIDE 101 mmol/L (98-107); GLOMERULAR FILTR. RATE CALC > 60 mL/min (>60); GLUCOSE,RANDOM 84 mg/dL (70-110); POTASSIUM 3.6 mmol/L (3.5-5.1); SODIUM SERUM 131 mmol/L (136-145); UREA NITROGEN, BLOOD 12 mg/dL (7-18)
[2018-03-12 15:39] LABS: ALANINE AMINOTRANSFERASE 14 U/L (12-78); ALKALINE PHOSPHATASE 85 U/L (46-116); ASPARTATE AMINOTRANSFERASE 11 U/L (15-37); BILIRUBIN,TOTAL 0.2 mg/dL (0.1-1.0); LIPASE 183 U/L (73-393); TOTAL PROTEIN, SERUM 6.3 g/dL (6.4-8.2)
[2018-03-12] MEDS ORDERED: MORPHINE SULFATE 4 MG/ML SYRINGE IVP ONE (16:15)
[2018-03-12 17:11] LABS: APPEARANCE,URINE CLOUDY (CLEAR); BILIRUBIN,URINE NEGATIVE (NEGATIVE); GLUCOSE, URINE (UA) NEGATIVE (NEGATIVE); KETONES,URINE NEGATIVE (NEGATIVE); LEUKOCYTE ESTERASE ,URINE NEGATIVE (NEGATIVE); NITRATE,URINE NEGATIVE (NEGATIVE); OCCULT BLOOD,URINE NEGATIVE (NEGATIVE); PH,URINE 5.5 (5.0-8.0); PROTEIN,URINE NEGATIVE (NEGATIVE); UROBILINOGEN,URINE 0.2 mg/dL (<=1.0)
[2018-03-12 17:25] LABS: RBC,URINE None Seen /HPF (0-2)
[2018-03-12 17:26] LABS: BACTERIA,URINE Few /HPF (None Seen); SQUAMOUS EPITHELIAL CELL,UR Many /LPF (None Seen); WBC,URINE 0-2 /HPF (0-5)
[2018-03-12] MEDS ORDERED: PETROLATUM,WHITE 5 GM PACKET JELLY TP ONE (17:30)
[2018-03-12 18:25] VITALS: BP 122/84
[2018-03-12] MEDS ORDERED: MORPHINE SULFATE 2 MG/ML SYRINGE IVP ONE (18:30)
== END 2018-03-12 18:58 | disposition home or self-care (01) ==
LOC: EMS 13:44
DX: R07.89 Other chest pain (principal); R20.0 Anesthesia of skin; J44.9 Chronic obstructive pulmonary disease, unspecified; F32.9 Major depressive disorder, single episode, unspecified; I10 Essential (primary) hypertension; I11.0 Hypertensive heart disease with heart failure; I50.9 Heart failure, unspecified; E03.9 Hypothyroidism, unspecified; F17.210 Nicotine dependence, cigarettes, uncomplicated; Z79.899 Other long term (current) drug therapy
CPT/HCPCS: 36415; 71045; 80053; 81001; 83690; 83880; 84484; 85025; 93005; 96374; 96376; 99285; J2270 ×2

== ENCOUNTER 2018-03-15 13:18 | Emergency (ER) | payer OTHER ==
[~2018-03-15] VITALS: Ht 167.6 cm; Wt 63.6 kg
[~2018-03-15 13:18] MED LIST changes: +AMLO-511 PO; +ARIP10TA8 PO; +DICL75TA5 PO; +DOXE50 PO; +FAMO20 PO; +FERR325T24 PO; +HYDR25TA PO; +LISI-661 PO; +MELO-107 PO; +MET500 PO; +PREM125 PO; +QUET100T PO; +TEMA15CA PO
[2018-03-15] MEDS ORDERED: NITROGLYCERIN 0.4 MG SUBLINGUAL TABLET #25 SL ONE (14:00)
[2018-03-15] MEDS ORDERED: ASPIRIN 325 MG TABLET PO ONE (14:00)
[2018-03-15 14:36] LABS: APPEARANCE,URINE CLOUDY (CLEAR); BILIRUBIN,URINE NEGATIVE (NEGATIVE); GLUCOSE, URINE (UA) NEGATIVE (NEGATIVE); KETONES,URINE NEGATIVE (NEGATIVE); LEUKOCYTE ESTERASE ,URINE NEGATIVE (NEGATIVE); NITRATE,URINE NEGATIVE (NEGATIVE); OCCULT BLOOD,URINE NEGATIVE (NEGATIVE); PH,URINE 5.5 (5.0-8.0); PROTEIN,URINE NEGATIVE (NEGATIVE); UROBILINOGEN,URINE 0.2 mg/dL (<=1.0)
[2018-03-15 14:48] LABS: EOSINOPHILS % (AUTO) 1.5 % (1.0-6.0); HEMATOCRIT 30.9 % (36-46); HEMOGLOBIN 10.2 g/dL (12.0-16.0); LYMPHOCYTES # (AUTO) 2.6 K/uL (1.0-4.8); LYMPHOCYTES % (AUTO) 27.6 % (22.0-44.0); MEAN CORPUSCULAR HEMOGLOBIN 27.6 pg (26.0-34.0); MEAN CORPUSCULAR HGB CONC 32.8 G/dL (31.0-37.0); MEAN CORPUSCULAR VOLUME 84 fL (80-100); MONOCYTES # (AUTO) 0.5 K/uL (0.1-1.0); MONOCYTES % (AUTO) 5.6 % (2.0-9.0); NEUTROPHILS # (AUTO) 6.1 K/uL (1.8-7.7); NEUTROPHILS % (AUTO) 64.3 % (40.0-70.0); PLATELET COUNT (AUTO) 416 K/uL (150-450); RED BLOOD CELL COUNT(AUTO) 3.68 MIL/uL (4.00-5.20); RED CELL DISTRIBUTION WIDTH 16.4 % (11.5-14.5)
[2018-03-15 15:06] LABS: B-TYPE NATRIURETIC PEPTIDE 45 pg/mL (0-100)
[2018-03-15 15:08] LABS: ANION GAP 7 mmol/L (8-16); CALCIUM, TOTAL 8.9 mg/dL (8.8-10.5); CARBON DIOXIDE 26 mmol/L (22-29); CHLORIDE 103 mmol/L (98-107); CREATININE 0.89 mg/dL (0.60-1.30); D-DIMER 0.5 mg/L FEU (0.00-0.50); GLOMERULAR FILTR. RATE CALC > 60 mL/min (>60); GLUCOSE,RANDOM 78 mg/dL (70-110); INR 0.9 (0.9-1.1); POTASSIUM 3.6 mmol/L (3.5-5.1); PROTHROMBIN TIME 9.4 SEC (9.4-11.6); SODIUM SERUM 136 mmol/L (136-145); UREA NITROGEN, BLOOD 14 mg/dL (7-18)
[2018-03-15 15:14] LABS: ALANINE AMINOTRANSFERASE 14 U/L (12-78); ALBUMIN 3.5 g/dL (3.4-5.0); ALKALINE PHOSPHATASE 109 U/L (46-116); ASPARTATE AMINOTRANSFERASE 11 U/L (15-37); BILIRUBIN,TOTAL 0.1 mg/dL (0.1-1.0); CREATINE KINASE, TOTAL 72 U/L (26-192); TOTAL PROTEIN, SERUM 7.5 g/dL (6.4-8.2)
[2018-03-15] MEDS ORDERED: LIDOCAINE HCL 5% TRANSDERMAL PATCH TD ONE (16:00)
[2018-03-15] MEDS ORDERED: LORazepam 2 MG/ML VIAL IVP ONE (18:30)
[2018-03-15 19:43] VITALS: BP 147/81
== END 2018-03-15 19:59 | disposition home or self-care (01) ==
LOC: EMS 13:20
DX: R07.9 Chest pain, unspecified (principal); K44.9 Diaphragmatic hernia without obstruction or gangrene; R11.0 Nausea; E03.9 Hypothyroidism, unspecified; I10 Essential (primary) hypertension; F32.9 Major depressive disorder, single episode, unspecified; I25.2 Old myocardial infarction; F17.210 Nicotine dependence, cigarettes, uncomplicated; J44.9 Chronic obstructive pulmonary disease, unspecified; Z98.84 Bariatric surgery status; Z79.899 Other long term (current) drug therapy
CPT/HCPCS: 36415; 71045; 80053; 81003; 82550; 83880; 84484; 85025; 85379; 85610; 85730; 93005; 96374; 99285; J2060

== ENCOUNTER 2018-03-25 13:50 | Emergency (ER) | payer OTHER ==
[~2018-03-25] VITALS: Ht 167.6 cm; Wt 62.7 kg
[2018-03-25 14:55] LABS: BASOPHILS % (AUTO) 1.4 % (0.0-2.0); EOSINOPHILS % (AUTO) 1.7 % (1.0-6.0); HEMATOCRIT 32.6 % (36-46); HEMOGLOBIN 10.7 g/dL (12.0-16.0); LYMPHOCYTES % (AUTO) 25.4 % (22.0-44.0); MEAN CORPUSCULAR HEMOGLOBIN 28.1 pg (26.0-34.0); MEAN CORPUSCULAR HGB CONC 32.9 G/dL (31.0-37.0); MEAN CORPUSCULAR VOLUME 85 fL (80-100); MONOCYTES # (AUTO) 0.4 K/uL (0.1-1.0); MONOCYTES % (AUTO) 5.1 % (2.0-9.0); NEUTROPHILS # (AUTO) 5.2 K/uL (1.8-7.7); NEUTROPHILS % (AUTO) 66.4 % (40.0-70.0); PLATELET COUNT (AUTO) 479 K/uL (150-450); RED BLOOD CELL COUNT(AUTO) 3.82 MIL/uL (4.00-5.20); RED CELL DISTRIBUTION WIDTH 18.9 % (11.5-14.5)
[2018-03-25 15:09] LABS: ANION GAP 9 mmol/L (8-16); CALCIUM, TOTAL 8.9 mg/dL (8.8-10.5); CARBON DIOXIDE 24 mmol/L (22-29); CHLORIDE 101 mmol/L (98-107); CREATININE 0.79 mg/dL (0.60-1.30); GLOMERULAR FILTR. RATE CALC > 60 mL/min (>60); GLUCOSE,RANDOM 82 mg/dL (70-110); POTASSIUM 4.7 mmol/L (3.5-5.1); SODIUM SERUM 134 mmol/L (136-145); UREA NITROGEN, BLOOD 15 mg/dL (7-18)
[2018-03-25 15:20] LABS: ALANINE AMINOTRANSFERASE 12 U/L (12-78); ALBUMIN 3.3 g/dL (3.4-5.0); ALKALINE PHOSPHATASE 103 U/L (46-116); ASPARTATE AMINOTRANSFERASE 25 U/L (15-37); BILIRUBIN,TOTAL 0.3 mg/dL (0.1-1.0); CREATINE KINASE, TOTAL 93 U/L (26-192); TOTAL PROTEIN, SERUM 7.3 g/dL (6.4-8.2)
[2018-03-25 15:28] LABS: B-TYPE NATRIURETIC PEPTIDE 20 pg/mL (0-100)
[2018-03-25] MEDS ORDERED: SODIUM CHLORIDE 0.9% 1,000 ML IV ONE (15:30)
[2018-03-25] MEDS ORDERED: ONDANSETRON HCL 4 MG/2 ML VIAL IVP ONE (15:30)
[2018-03-25 15:35] LABS: INR 0.9 (0.9-1.1); PROTHROMBIN TIME 9.3 SEC (9.4-11.6)
[2018-03-25 15:39] LABS: APPEARANCE,URINE CLEAR (CLEAR); BILIRUBIN,URINE NEGATIVE (NEGATIVE); GLUCOSE, URINE (UA) NEGATIVE (NEGATIVE); KETONES,URINE NEGATIVE (NEGATIVE); LEUKOCYTE ESTERASE ,URINE NEGATIVE (NEGATIVE); NITRATE,URINE NEGATIVE (NEGATIVE); OCCULT BLOOD,URINE NEGATIVE (NEGATIVE); PH,URINE 5.5 (5.0-8.0); PROTEIN,URINE NEGATIVE (NEGATIVE); UROBILINOGEN,URINE 0.2 mg/dL (<=1.0)
[2018-03-25 16:01] LABS: CREATINE KINASE MB 0.9 ng/mL (0-5)
[2018-03-25] MEDS ORDERED: ACETAMINOPHEN 1000 MG/ISO-OSM 100 ML IV ONE (16:15)
[2018-03-25] MEDS ORDERED: ASPIRIN 325 MG EC TABLET PO ONE (16:15)
[2018-03-25] MEDS ORDERED: DOXE100 PO (16:16)
[2018-03-25] MEDS ORDERED: MORPHINE SULFATE 2 MG/ML SYRINGE IVP ONE (17:30)
[2018-03-25] MEDS ORDERED: HYDROCODONE/ACETAMINOPHEN 5-325 MG TABLET PO ONE (20:30)
[2018-03-25 21:11] VITALS: BP 133/84
== END 2018-03-25 21:11 | disposition home or self-care (01) ==
LOC: EMS 13:50
DX: R07.89 Other chest pain (principal); R11.0 Nausea; J44.9 Chronic obstructive pulmonary disease, unspecified; I10 Essential (primary) hypertension; E03.9 Hypothyroidism, unspecified; I25.2 Old myocardial infarction; F17.210 Nicotine dependence, cigarettes, uncomplicated
CPT/HCPCS: 36415; 71045; 80053; 81003; 82550; 82553; 83880; 84484; 85025; 85610; 85730; 93005; 96361; 96365; 96375; 99285; J0131; J2270; J2405; J7030

== ENCOUNTER 2018-05-02 10:29 | Inpatient (IN) | payer OTHER ==
[~2018-05-02] VITALS: Ht 167.6 cm; Wt 56.7 kg
[~2018-05-02 10:29] MED LIST changes: +DOXE100 PO; -DOXE50 PO; -MET500 PO
[2018-05-02] MEDS ORDERED: CARV3 PO (10:50)
[2018-05-02] MEDS ORDERED: ASPI-556 PO (11:00)
[2018-05-02] MEDS ORDERED: ISOS30TA6 PO (11:00)
[2018-05-02] MEDS ORDERED: GUAIF600 PO (11:00)
[2018-05-02] MEDS ORDERED: CLOP75 PO (11:00)
[2018-05-02] MEDS ORDERED: PREM3 PO (11:00)
[2018-05-02] MEDS ORDERED: MET500 PO (11:00)
[2018-05-02] MEDS ORDERED: LIDOCAINE HCL 5% TRANSDERMAL PATCH TD ONE (12:15)
[2018-05-02] MEDS ORDERED: HYDROCODONE/ACETAMINOPHEN 5-325 MG TABLET PO ONE ×2 (12:15→13:30)
[2018-05-02 12:43] LABS: BASOPHILS % (AUTO) 0.8 % (0.0-2.0); EOSINOPHILS % (AUTO) 2.8 % (1.0-6.0); HEMATOCRIT 32.5 % (36-46); HEMOGLOBIN 10.9 g/dL (12.0-16.0); LYMPHOCYTES # (AUTO) 1.9 K/uL (1.0-4.8); LYMPHOCYTES % (AUTO) 26.6 % (22.0-44.0); MEAN CORPUSCULAR HEMOGLOBIN 29.3 pg (26.0-34.0); MEAN CORPUSCULAR HGB CONC 33.4 G/dL (31.0-37.0); MEAN CORPUSCULAR VOLUME 88 fL (80-100); MONOCYTES # (AUTO) 0.4 K/uL (0.1-1.0); MONOCYTES % (AUTO) 5.4 % (2.0-9.0); NEUTROPHILS # (AUTO) 4.6 K/uL (1.8-7.7); NEUTROPHILS % (AUTO) 64.4 % (40.0-70.0); PLATELET COUNT (AUTO) 384 K/uL (150-450); RED BLOOD CELL COUNT(AUTO) 3.72 MIL/uL (4.00-5.20); RED CELL DISTRIBUTION WIDTH 18.8 % (11.5-14.5)
[2018-05-02 12:58] LABS: CALCIUM, TOTAL 8.3 mg/dL (8.8-10.5); CREATININE 1.09 mg/dL (0.60-1.30); POTASSIUM 4.1 mmol/L (3.5-5.1)
[2018-05-02 13:03] LABS: ALBUMIN 2.9 g/dL (3.4-5.0); BILIRUBIN,TOTAL 0.2 mg/dL (0.1-1.0); TOTAL PROTEIN, SERUM 6.3 g/dL (6.4-8.2)
[2018-05-02] MEDS ORDERED: PREM625 PO (13:32)
[2018-05-02] MEDS ORDERED: METHOCARBAMOL 500 MG TABLET PO ONE (16:00)
[2018-05-02] MEDS ORDERED: KETOROLAC TROMETHAMINE 30 MG/ML VIAL IVP ONE (17:00)
[2018-05-02] MEDS ORDERED: ONDANSETRON HCL 4 MG/2 ML VIAL IVP PRN (20:15)
[2018-05-02] MEDS ORDERED: BISACODYL 10 MG RECTAL RECTAL SUPPOSITORY PR PRN (20:15)
[2018-05-02] MEDS ORDERED: ZOLPIDEM TARTRATE 5 MG TABLET PO PRN (20:15)
[2018-05-02] MEDS ORDERED: ACETAMINOPHEN 325 MG TABLET PO PRN (20:15)
[2018-05-02] MEDS ORDERED: IPRATROPIUM BROMIDE 0.5 MG/2.5 ML NEB SOLUTION NEB PRN (20:15)
[2018-05-02] MEDS ORDERED: ALBUTEROL SULFATE 2.5 MG/0.5 ML NEB SOLUTION NEB PRN (20:15)
[2018-05-02] MEDS ORDERED: MAGNESIUM HYDROXIDE SUSPENSION 30 ML UDCUP PO PRN (20:15)
[2018-05-02 20:27] VITALS: BP 113/79
[2018-05-02] MEDS ORDERED: DICLOFENAC SODIUM 75 MG DR TABLET PO SCH (21:00)
[2018-05-02] MEDS: OxyCODONE HCL/ACETAMINOPHEN 5-325 MG TABLET PO PRN (21:10)
[2018-05-02] MEDS: FAMOTIDINE 20 MG TABLET PO SCH (21:10)
[2018-05-02] MEDS: TEMAZEPAM 15 MG CAPSULE PO SCH (23:05)
[2018-05-02 23:07] VITALS: BP 100/59
[2018-05-03] VITALS (7 sets, daily range): BP systolic 96–109; BP diastolic 17–68
[2018-05-03] MEDS: OxyCODONE HCL/ACETAMINOPHEN 5-325 MG TABLET PO PRN ×5 (02:04→22:47)
[2018-05-03] MEDS: LEVOTHYROXINE SODIUM 125 MCG TABLET PO SCH (06:13)
[2018-05-03 06:29] LABS: BASOPHILS % (AUTO) 1.2 % (0.0-2.0); EOSINOPHILS % (AUTO) 5.3 % (1.0-6.0); HEMATOCRIT 32.7 % (36-46); LYMPHOCYTES # (AUTO) 1.9 K/uL (1.0-4.8); MEAN CORPUSCULAR HEMOGLOBIN 29.4 pg (26.0-34.0); MEAN CORPUSCULAR HGB CONC 33.6 G/dL (31.0-37.0); MEAN CORPUSCULAR VOLUME 88 fL (80-100); MONOCYTES # (AUTO) 0.4 K/uL (0.1-1.0); MONOCYTES % (AUTO) 7.5 % (2.0-9.0); NEUTROPHILS # (AUTO) 2.2 K/uL (1.8-7.7); PLATELET COUNT (AUTO) 337 K/uL (150-450); RED BLOOD CELL COUNT(AUTO) 3.73 MIL/uL (4.00-5.20); RED CELL DISTRIBUTION WIDTH 18.9 % (11.5-14.5)
[2018-05-03 06:43] LABS: INR 0.9 (0.9-1.1); PROTHROMBIN TIME 9.4 SEC (9.4-11.6)
[2018-05-03 06:52] LABS: ALANINE AMINOTRANSFERASE 12 U/L (12-78); ALBUMIN 2.6 g/dL (3.4-5.0); ALKALINE PHOSPHATASE 70 U/L (46-116); ANION GAP 5 mmol/L (8-16); ASPARTATE AMINOTRANSFERASE 11 U/L (15-37); BILIRUBIN,TOTAL 0.2 mg/dL (0.1-1.0); CARBON DIOXIDE 26 mmol/L (22-29); CHLORIDE 105 mmol/L (98-107); CREATININE 0.77 mg/dL (0.60-1.30); GLOMERULAR FILTR. RATE CALC > 60 mL/min (>60); GLUCOSE,RANDOM 71 mg/dL (70-110); PHOSPHORUS 3.3 mg/dL (2.5-4.9); POTASSIUM 4.6 mmol/L (3.5-5.1); SODIUM SERUM 136 mmol/L (136-145); TOTAL PROTEIN, SERUM 5.8 g/dL (6.4-8.2); UREA NITROGEN, BLOOD 15 mg/dL (7-18)
[2018-05-03] MEDS ORDERED: FERROUS SULFATE 325 MG EC TABLET PO SCH (08:00)
[2018-05-03] MEDS: CLOPIDOGREL BISULFATE 75 MG TABLET PO SCH (08:32)
[2018-05-03] MEDS: FAMOTIDINE 20 MG TABLET PO SCH ×2 (08:32→20:30)
[2018-05-03] MEDS: SERTRALINE HCL 100 MG TABLET PO SCH (08:32)
[2018-05-03] MEDS: ARIPiprazole 10 MG TABLET PO SCH (08:33)
[2018-05-03] MEDS: CHOLECALCIFEROL (VIT D3) 1,000 UNITS TABLET PO SCH (08:33)
[2018-05-03] MEDS: ASPIRIN 81 MG EC TABLET PO SCH (08:33)
[2018-05-03] MEDS: DOXEPIN HCL 25 MG CAPSULE PO SCH (08:34)
[2018-05-03] MEDS: METHOCARBAMOL 500 MG TABLET PO SCH (08:34)
[2018-05-03] MEDS: ESTROGENS,CONJUGATED 0.625 MG TABLET PO SCH (08:34)
[2018-05-03] MEDS ORDERED: DOXEPIN HCL 100 MG CAPSULE PO SCH (09:00)
[2018-05-03] MEDS ORDERED: AmLODIPine BESYLATE 5 MG TABLET PO SCH (09:00)
[2018-05-03] MEDS ORDERED: DICLOFENAC SODIUM 25 MG DR TABLET PO SCH (09:00)
[2018-05-03] MEDS: LISINOPRIL 10 MG TABLET PO SCH (12:45)
[2018-05-03] MEDS: QUEtiapine FUMARATE 100 MG TABLET PO SCH (12:45)
[2018-05-03 13:09] LABS: THYROID STIMULATING HORMONE 3.15 uIU/mL (0.36-3.74)
[2018-05-03] MEDS: TEMAZEPAM 15 MG CAPSULE PO SCH (20:30)
[2018-05-04 04:51] VITALS: BP 109/72
[2018-05-04] MEDS: OxyCODONE HCL/ACETAMINOPHEN 5-325 MG TABLET PO PRN ×3 (04:51→13:44)
[2018-05-04] MEDS: LEVOTHYROXINE SODIUM 125 MCG TABLET PO SCH (06:01)
[2018-05-04 06:26] LABS: BASOPHILS % (AUTO) 0.8 % (0.0-2.0); EOSINOPHILS % (AUTO) 5.5 % (1.0-6.0); HEMATOCRIT 32.6 % (36-46); LYMPHOCYTES # (AUTO) 2.2 K/uL (1.0-4.8); LYMPHOCYTES % (AUTO) 43.8 % (22.0-44.0); MEAN CORPUSCULAR HEMOGLOBIN 29.6 pg (26.0-34.0); MEAN CORPUSCULAR HGB CONC 33.9 G/dL (31.0-37.0); MEAN CORPUSCULAR VOLUME 87 fL (80-100); MONOCYTES # (AUTO) 0.4 K/uL (0.1-1.0); MONOCYTES % (AUTO) 7.5 % (2.0-9.0); NEUTROPHILS # (AUTO) 2.1 K/uL (1.8-7.7); NEUTROPHILS % (AUTO) 42.4 % (40.0-70.0); PLATELET COUNT (AUTO) 323 K/uL (150-450); RED BLOOD CELL COUNT(AUTO) 3.73 MIL/uL (4.00-5.20); RED CELL DISTRIBUTION WIDTH 18.7 % (11.5-14.5)
[2018-05-04 06:50] LABS: ALANINE AMINOTRANSFERASE 13 U/L (12-78); ALBUMIN 2.5 g/dL (3.4-5.0); ALKALINE PHOSPHATASE 68 U/L (46-116); ANION GAP 4 mmol/L (8-16); ASPARTATE AMINOTRANSFERASE 10 U/L (15-37); BILIRUBIN,TOTAL 0.1 mg/dL (0.1-1.0); CALCIUM, TOTAL 8.3 mg/dL (8.8-10.5); CARBON DIOXIDE 27 mmol/L (22-29); CHLORIDE 103 mmol/L (98-107); CREATININE 0.78 mg/dL (0.60-1.30); GLOMERULAR FILTR. RATE CALC > 60 mL/min (>60); GLUCOSE,RANDOM 99 mg/dL (70-110); POTASSIUM 4.5 mmol/L (3.5-5.1); SODIUM SERUM 134 mmol/L (136-145); TOTAL PROTEIN, SERUM 5.5 g/dL (6.4-8.2); UREA NITROGEN, BLOOD 17 mg/dL (7-18)
[2018-05-04 07:07] VITALS: BP 131/62
[2018-05-04] MEDS: QUEtiapine FUMARATE 100 MG TABLET PO SCH (08:09)
[2018-05-04] MEDS: CLOPIDOGREL BISULFATE 75 MG TABLET PO SCH (08:09)
[2018-05-04] MEDS: FAMOTIDINE 20 MG TABLET PO SCH (08:10)
[2018-05-04] MEDS: CHOLECALCIFEROL (VIT D3) 1,000 UNITS TABLET PO SCH (08:10)
[2018-05-04] MEDS: LISINOPRIL 10 MG TABLET PO SCH (08:10)
[2018-05-04] MEDS: SERTRALINE HCL 100 MG TABLET PO SCH (08:10)
[2018-05-04] MEDS: ASPIRIN 81 MG EC TABLET PO SCH (08:10)
[2018-05-04] MEDS: METHOCARBAMOL 500 MG TABLET PO SCH (08:11)
[2018-05-04] MEDS: DOXEPIN HCL 25 MG CAPSULE PO SCH (08:11)
[2018-05-04] MEDS: ESTROGENS,CONJUGATED 0.625 MG TABLET PO SCH (08:11)
[2018-05-04] MEDS: ARIPiprazole 10 MG TABLET PO SCH (08:12)
[2018-05-04] MEDS ORDERED: METOPROLOL SUCCINATE 25 MG ER TABLET PO SCH (09:00)
[2018-05-04] MEDS ORDERED: MAGNESIUM OXIDE 400 MG TABLET PO ONE (11:00)
[2018-05-04 11:04] VITALS: BP 97/58
== END 2018-05-04 15:30 | disposition home or self-care (01) | DRG 198 ==
LOC: EMS 10:31 → 5N 18:52
PROVIDERS: ADMIT Internal Medicine; ATTEND Internal Medicine
DX: R07.89 Other chest pain (principal); I25.10 Atherosclerotic heart disease of native coronary artery without angina pectoris; E43 Unspecified severe protein-calorie malnutrition; I10 Essential (primary) hypertension; E03.9 Hypothyroidism, unspecified; J44.9 Chronic obstructive pulmonary disease, unspecified; W19.XXXA Unspecified fall, initial encounter; M19.90 Unspecified osteoarthritis, unspecified site; M54.5 Low back pain; I49.3 Ventricular premature depolarization; E55.9 Vitamin D deficiency, unspecified; G89.29 Other chronic pain; D64.9 Anemia, unspecified; K21.9 Gastro-esophageal reflux disease without esophagitis; F32.9 Major depressive disorder, single episode, unspecified; F17.210 Nicotine dependence, cigarettes, uncomplicated; Z98.84 Bariatric surgery status; Z95.5 Presence of coronary angioplasty implant and graft; Q67.6 Pectus excavatum; Z79.82 Long term (current) use of aspirin; Z79.02 Long term (current) use of antithrombotics/antiplatelets; Z79.899 Other long term (current) drug therapy; Y93.89 Activity, other specified; Y92.89 Other specified places as the place of occurrence of the external cause; Y99.8 Other external cause status; Z68.20 Body mass index [BMI] 20.0-20.9, adult
CPT/HCPCS: 72125; 72128; 83735; 84100; 84443; 87081; 93005; 93306; 96374; 99285; J1885

== ENCOUNTER 2018-05-06 17:28 | Emergency (ER) | payer OTHER ==
[~2018-05-06] VITALS: Ht 167.6 cm; Wt 59.0 kg
[~2018-05-06 17:28] MED LIST changes: -AMLO-511 PO; +ASPI-556 PO; -BUDE10.2 IH; +CARV3 PO; +CLOP75 PO; -DICL75TA5 PO; -DOXE100 PO; -FERR325T24 PO; -HYDR25TA PO; +ISOS30TA6 PO; +MET500 PO; -PREM125 PO; -TEMA15CA PO
[2018-05-06 18:40] LABS: BASOPHILS % (AUTO) 1.2 % (0.0-2.0); EOSINOPHILS % (AUTO) 6.8 % (1.0-6.0); HEMATOCRIT 32.3 % (36-46); HEMOGLOBIN 10.8 g/dL (12.0-16.0); LYMPHOCYTES # (AUTO) 2.2 K/uL (1.0-4.8); MEAN CORPUSCULAR HEMOGLOBIN 29.2 pg (26.0-34.0); MEAN CORPUSCULAR HGB CONC 33.3 G/dL (31.0-37.0); MEAN CORPUSCULAR VOLUME 88 fL (80-100); MONOCYTES # (AUTO) 0.3 K/uL (0.1-1.0); MONOCYTES % (AUTO) 6.2 % (2.0-9.0); NEUTROPHILS # (AUTO) 2.4 K/uL (1.8-7.7); NEUTROPHILS % (AUTO) 44.8 % (40.0-70.0); PLATELET COUNT (AUTO) 385 K/uL (150-450); RED BLOOD CELL COUNT(AUTO) 3.69 MIL/uL (4.00-5.20); RED CELL DISTRIBUTION WIDTH 18.9 % (11.5-14.5)
[2018-05-06] MEDS ORDERED: KETOROLAC TROMETHAMINE 30 MG/ML VIAL IVP ONE ×2 (18:45→19:30)
[2018-05-06 18:48] LABS: ANION GAP 3 mmol/L (8-16); CALCIUM, TOTAL 8.1 mg/dL (8.8-10.5); CARBON DIOXIDE 28 mmol/L (22-29); CHLORIDE 103 mmol/L (98-107); CREATININE 1.07 mg/dL (0.60-1.30); GLOMERULAR FILTR. RATE CALC 53 mL/min (>60); GLUCOSE,RANDOM 82 mg/dL (70-110); POTASSIUM 4.2 mmol/L (3.5-5.1); SODIUM SERUM 134 mmol/L (136-145); UREA NITROGEN, BLOOD 22 mg/dL (7-18)
[2018-05-06 18:55] LABS: ALANINE AMINOTRANSFERASE 13 U/L (12-78); ALBUMIN 2.9 g/dL (3.4-5.0); ALKALINE PHOSPHATASE 73 U/L (46-116); ASPARTATE AMINOTRANSFERASE 14 U/L (15-37); BILIRUBIN,TOTAL 0.1 mg/dL (0.1-1.0); CREATINE KINASE, TOTAL 58 U/L (26-192); TOTAL PROTEIN, SERUM 6.1 g/dL (6.4-8.2)
[2018-05-06 19:01] LABS: B-TYPE NATRIURETIC PEPTIDE 26 pg/mL (0-100)
[2018-05-06] MEDS ORDERED: HydrOXYzine HCL 25 MG TABLET PO ONE (20:45)
[2018-05-06 23:25] VITALS: BP 102/67
== END 2018-05-06 23:29 | disposition home or self-care (01) ==
LOC: EMS 17:29
DX: R07.9 Chest pain, unspecified (principal); F17.210 Nicotine dependence, cigarettes, uncomplicated; I10 Essential (primary) hypertension; J44.9 Chronic obstructive pulmonary disease, unspecified; F32.9 Major depressive disorder, single episode, unspecified; E03.9 Hypothyroidism, unspecified; I25.2 Old myocardial infarction; Z79.899 Other long term (current) drug therapy; Z79.82 Long term (current) use of aspirin
CPT/HCPCS: 36415; 71045; 80053; 82550; 83880; 84484; 85025; 85610; 85730; 93005; 96374; 99285; J1885

== ENCOUNTER 2018-05-22 17:51 | Inpatient (IN) | payer OTHER ==
[~2018-05-22] VITALS: Ht 167.6 cm; Wt 54.9 kg
[2018-05-22] MEDS ORDERED: HYDR25TA PO (18:04)
[2018-05-22] MEDS ORDERED: DOXE100 PO (18:04)
[2018-05-22] MEDS ORDERED: GUAI600T30 PO (18:04)
[2018-05-22] MEDS ORDERED: DOCU250C90 PO (18:04)
[2018-05-22] MEDS ORDERED: TEMA15CA PO (18:04)
[2018-05-22] MEDS ORDERED: IRON18TA PO (18:04)
[2018-05-22] MEDS ORDERED: AMLO-511 PO (18:04)
[2018-05-22] MEDS ORDERED: DICL75TA5 PO (18:04)
[2018-05-22] MEDS ORDERED: PREM625 PO (18:04)
[2018-05-22] MEDS ORDERED: NITROGLYCERIN 2% (1 GM=INCH) PACKET TP ONE (18:15)
[2018-05-22] MEDS ORDERED: ASPIRIN 325 MG TABLET PO ONE (18:15)
[2018-05-22 18:35] LABS: BASOPHILS % (AUTO) 0.5 % (0.0-2.0); HEMATOCRIT 31.5 % (36-46); HEMOGLOBIN 10.7 g/dL (12.0-16.0); LYMPHOCYTES # (AUTO) 1.9 K/uL (1.0-4.8); LYMPHOCYTES % (AUTO) 21.1 % (22.0-44.0); MEAN CORPUSCULAR HEMOGLOBIN 30.4 pg (26.0-34.0); MEAN CORPUSCULAR HGB CONC 33.9 G/dL (31.0-37.0); MEAN CORPUSCULAR VOLUME 90 fL (80-100); MONOCYTES # (AUTO) 0.5 K/uL (0.1-1.0); MONOCYTES % (AUTO) 5.8 % (2.0-9.0); NEUTROPHILS # (AUTO) 6.2 K/uL (1.8-7.7); NEUTROPHILS % (AUTO) 69.6 % (40.0-70.0); PLATELET COUNT (AUTO) 297 K/uL (150-450); RED BLOOD CELL COUNT(AUTO) 3.51 MIL/uL (4.00-5.20); RED CELL DISTRIBUTION WIDTH 18.8 % (11.5-14.5)
[2018-05-22 18:46] LABS: ANION GAP 6 mmol/L (8-16); CALCIUM, TOTAL 8.2 mg/dL (8.8-10.5); CARBON DIOXIDE 24 mmol/L (22-29); CHLORIDE 105 mmol/L (98-107); CREATININE 0.99 mg/dL (0.60-1.30); GLOMERULAR FILTR. RATE CALC 58 mL/min (>60); GLUCOSE,RANDOM 87 mg/dL (70-110); POTASSIUM 3.6 mmol/L (3.5-5.1); SODIUM SERUM 135 mmol/L (136-145); UREA NITROGEN, BLOOD 20 mg/dL (7-18)
[2018-05-22 18:47] LABS: INR 0.9 (0.9-1.1); PROTHROMBIN TIME 9.6 SEC (9.4-11.6)
[2018-05-22 19:00] LABS: B-TYPE NATRIURETIC PEPTIDE 100 pg/mL (0-100)
[2018-05-22 19:11] LABS: ALANINE AMINOTRANSFERASE 20 U/L (12-78); ALBUMIN 2.9 g/dL (3.4-5.0); ALKALINE PHOSPHATASE 84 U/L (46-116); ASPARTATE AMINOTRANSFERASE 13 U/L (15-37); BILIRUBIN,TOTAL 0.1 mg/dL (0.1-1.0); CREATINE KINASE MB 1.2 ng/mL (0-5); CREATINE KINASE, TOTAL 78 U/L (26-192)
[2018-05-22] MEDS ORDERED: MORPHINE SULFATE 2 MG/ML SYRINGE IVP ONE (19:30)
[2018-05-22] MEDS ORDERED: ONDANSETRON HCL 4 MG/2 ML VIAL IVP ONE (19:30)
[2018-05-22 19:34] LABS: APPEARANCE,URINE CLEAR (CLEAR); BILIRUBIN,URINE NEGATIVE (NEGATIVE); GLUCOSE, URINE (UA) NEGATIVE (NEGATIVE); KETONES,URINE NEGATIVE (NEGATIVE); LEUKOCYTE ESTERASE ,URINE NEGATIVE (NEGATIVE); NITRATE,URINE NEGATIVE (NEGATIVE); OCCULT BLOOD,URINE NEGATIVE (NEGATIVE); PROTEIN,URINE NEGATIVE (NEGATIVE); UROBILINOGEN,URINE 0.2 mg/dL (<=1.0)
[2018-05-22] MEDS ORDERED: 0.9% SODIUM CHLORIDE 10 ML SYRINGE IVP PRN (19:45)
[2018-05-22] MEDS ORDERED: ACETAMINOPHEN 325 MG TABLET PO PRN ×2 (19:45→23:45)
[2018-05-22] MEDS ORDERED: ONDANSETRON HCL 4 MG/2 ML VIAL IVP PRN ×2 (19:45→23:45)
[2018-05-22 20:36] VITALS: BP 133/78
[2018-05-22] MEDS: HYDROCODONE/ACETAMINOPHEN 10-325 MG TABLET PO PRN (22:17)
[2018-05-22] MEDS: TEMAZEPAM 15 MG CAPSULE PO SCH (22:17)
[2018-05-22 23:21] VITALS: BP 127/74
[2018-05-23] MEDS ORDERED: DICLOFENAC SODIUM 75 MG DR TABLET PO SCH
[2018-05-23] MEDS ORDERED: TEMAZEPAM 15 MG CAPSULE PO SCH
[2018-05-23] MEDS ORDERED: OxyCODONE HCL 10 MG IR TABLET PO PRN
[2018-05-23] MEDS ORDERED: DOXEPIN HCL 100 MG CAPSULE PO SCH
[2018-05-23] MEDS: DICLOFENAC SODIUM 25 MG DR TABLET PO SCH ×3 (00:58→22:14)
[2018-05-23] MEDS: DOCUSATE SODIUM 100 MG CAPSULE PO SCH ×3 (00:58→20:59)
[2018-05-23] MEDS: HYDROCODONE/ACETAMINOPHEN 10-325 MG TABLET PO PRN ×5 (02:29→20:59)
[2018-05-23 05:13] VITALS: BP 121/75
[2018-05-23 05:55] LABS: BASOPHILS % (AUTO) 0.8 % (0.0-2.0); EOSINOPHILS % (AUTO) 3.5 % (1.0-6.0); HEMATOCRIT 33.1 % (36-46); HEMOGLOBIN 11.2 g/dL (12.0-16.0); LYMPHOCYTES # (AUTO) 1.7 K/uL (1.0-4.8); LYMPHOCYTES % (AUTO) 28.7 % (22.0-44.0); MEAN CORPUSCULAR HEMOGLOBIN 30.4 pg (26.0-34.0); MEAN CORPUSCULAR HGB CONC 33.7 G/dL (31.0-37.0); MEAN CORPUSCULAR VOLUME 90 fL (80-100); MONOCYTES # (AUTO) 0.3 K/uL (0.1-1.0); MONOCYTES % (AUTO) 5.1 % (2.0-9.0); NEUTROPHILS # (AUTO) 3.7 K/uL (1.8-7.7); NEUTROPHILS % (AUTO) 61.9 % (40.0-70.0); PLATELET COUNT (AUTO) 286 K/uL (150-450); RED BLOOD CELL COUNT(AUTO) 3.67 MIL/uL (4.00-5.20); RED CELL DISTRIBUTION WIDTH 18.3 % (11.5-14.5)
[2018-05-23] MEDS: LEVOTHYROXINE SODIUM 125 MCG TABLET PO SCH (05:58)
[2018-05-23 06:47] LABS: ALBUMIN 2.7 g/dL (3.4-5.0); BILIRUBIN,TOTAL 0.1 mg/dL (0.1-1.0); CALCIUM, TOTAL 8.1 mg/dL (8.8-10.5); CREATININE 0.96 mg/dL (0.60-1.30); TOTAL PROTEIN, SERUM 5.8 g/dL (6.4-8.2)
[2018-05-23 07:34] VITALS: BP 137/51
[2018-05-23] MEDS: CLOPIDOGREL BISULFATE 75 MG TABLET PO SCH (08:23)
[2018-05-23] MEDS: ASPIRIN 81 MG EC TABLET PO SCH (08:23)
[2018-05-23] MEDS: PANTOPRAZOLE SODIUM 40 MG DR TABLET PO SCH (08:23)
[2018-05-23] MEDS: CARVEDILOL 3.125 MG TABLET PO SCH (08:23)
[2018-05-23] MEDS: ISOSORBIDE MONONITRATE 30 MG ER TABLET PO SCH (08:24)
[2018-05-23] MEDS: QUEtiapine FUMARATE 100 MG TABLET PO SCH (08:25)
[2018-05-23] MEDS: ARIPiprazole 10 MG TABLET PO SCH (08:27)
[2018-05-23] MEDS: SERTRALINE HCL 100 MG TABLET PO SCH (08:27)
[2018-05-23] MEDS: ESTROGENS,CONJUGATED 0.625 MG TABLET PO SCH (08:28)
[2018-05-23] MEDS: ENOXAPARIN SODIUM 40 MG/0.4 ML PF SYRINGE SQ SCH (08:28)
[2018-05-23] MEDS ORDERED: LISINOPRIL 10 MG TABLET PO SCH (09:00)
[2018-05-23] MEDS ORDERED: DOCUSATE SODIUM 250 MG CAPSULE PO SCH (09:00)
[2018-05-23] MEDS ORDERED: AmLODIPine BESYLATE 5 MG TABLET PO SCH (09:00)
[2018-05-23] MEDS: ALBUTEROL SULFATE 2.5 MG/0.5 ML NEB SOLUTION NEB SCH ×2 (11:21→19:47)
[2018-05-23] MEDS: IPRATROPIUM BROMIDE 0.5 MG/2.5 ML NEB SOLUTION NEB SCH ×2 (11:22→19:47)
[2018-05-23 11:27] VITALS: BP 115/57
[2018-05-23 15:08] VITALS: BP 117/46
[2018-05-23 19:43] VITALS: BP 100/52
[2018-05-23] MEDS: TEMAZEPAM 15 MG CAPSULE PO SCH (21:00)
[2018-05-23] MEDS ORDERED: IBUPROFEN 800 MG TABLET PO PRN (21:15)
[2018-05-23] MEDS: ZALEPLON 5 MG CAPSULE PO PRN (22:14)
[2018-05-23 23:59] VITALS: BP 108/52
[2018-05-24] VITALS (9 sets, daily range): BP systolic 75–117; BP diastolic 43–58
[2018-05-24] MEDS: HYDROCODONE/ACETAMINOPHEN 10-325 MG TABLET PO PRN ×4 (03:02→20:16)
[2018-05-24] MEDS: LEVOTHYROXINE SODIUM 125 MCG TABLET PO SCH (06:36)
[2018-05-24] MEDS: ALBUTEROL SULFATE 2.5 MG/0.5 ML NEB SOLUTION NEB SCH ×2 (08:46→19:45)
[2018-05-24] MEDS: IPRATROPIUM BROMIDE 0.5 MG/2.5 ML NEB SOLUTION NEB SCH ×2 (08:47→19:45)
[2018-05-24] MEDS: CLOPIDOGREL BISULFATE 75 MG TABLET PO SCH (08:57)
[2018-05-24] MEDS: ENOXAPARIN SODIUM 40 MG/0.4 ML PF SYRINGE SQ SCH (08:57)
[2018-05-24] MEDS: PANTOPRAZOLE SODIUM 40 MG DR TABLET PO SCH (08:57)
[2018-05-24] MEDS: DICLOFENAC SODIUM 25 MG DR TABLET PO SCH ×2 (08:58→20:15)
[2018-05-24] MEDS: ISOSORBIDE MONONITRATE 30 MG ER TABLET PO SCH (08:58)
[2018-05-24] MEDS: ASPIRIN 81 MG EC TABLET PO SCH (08:58)
[2018-05-24] MEDS: QUEtiapine FUMARATE 100 MG TABLET PO SCH (08:58)
[2018-05-24] MEDS: SERTRALINE HCL 100 MG TABLET PO SCH (08:58)
[2018-05-24] MEDS: DOCUSATE SODIUM 100 MG CAPSULE PO SCH ×2 (08:58→20:15)
[2018-05-24] MEDS: ESTROGENS,CONJUGATED 0.625 MG TABLET PO SCH (08:59)
[2018-05-24] MEDS: ARIPiprazole 10 MG TABLET PO SCH (08:59)
[2018-05-24] MEDS: CARVEDILOL 3.125 MG TABLET PO SCH (09:00)
[2018-05-24] MEDS: LISINOPRIL 10 MG TABLET PO SCH (09:00)
[2018-05-24] MEDS ORDERED: ALPRAZolam 0.5 MG TABLET PO PRN (18:00)
[2018-05-24] MEDS: ZALEPLON 5 MG CAPSULE PO PRN (20:15)
[2018-05-24] MEDS: DOXEPIN HCL 25 MG CAPSULE PO SCH ×2 (21:20)
[2018-05-25 00:05] VITALS: BP 96/59
[2018-05-25 04:35] VITALS: BP 120/61
[2018-05-25] MEDS: HYDROCODONE/ACETAMINOPHEN 10-325 MG TABLET PO PRN (04:47)
[2018-05-25] MEDS: LEVOTHYROXINE SODIUM 125 MCG TABLET PO SCH (05:37)
[2018-05-25 07:34] VITALS: BP 158/66
[2018-05-25] MEDS: IPRATROPIUM BROMIDE 0.5 MG/2.5 ML NEB SOLUTION NEB SCH (09:00)
[2018-05-25] MEDS: ALBUTEROL SULFATE 2.5 MG/0.5 ML NEB SOLUTION NEB SCH (09:00)
[2018-05-25] MEDS: LISINOPRIL 10 MG TABLET PO SCH (09:00)
[2018-05-25] MEDS: ESTROGENS,CONJUGATED 0.625 MG TABLET PO SCH (09:11)
[2018-05-25] MEDS: ENOXAPARIN SODIUM 40 MG/0.4 ML PF SYRINGE SQ SCH (09:11)
[2018-05-25] MEDS: ISOSORBIDE MONONITRATE 30 MG ER TABLET PO SCH (09:12)
[2018-05-25] MEDS: DOCUSATE SODIUM 100 MG CAPSULE PO SCH (09:12)
[2018-05-25] MEDS: PANTOPRAZOLE SODIUM 40 MG DR TABLET PO SCH (09:12)
[2018-05-25] MEDS: CLOPIDOGREL BISULFATE 75 MG TABLET PO SCH (09:12)
[2018-05-25] MEDS: ASPIRIN 81 MG EC TABLET PO SCH (09:12)
[2018-05-25] MEDS: QUEtiapine FUMARATE 100 MG TABLET PO SCH (09:12)
[2018-05-25] MEDS: ARIPiprazole 10 MG TABLET PO SCH (09:13)
[2018-05-25] MEDS: DICLOFENAC SODIUM 25 MG DR TABLET PO SCH (09:13)
[2018-05-25] MEDS: SERTRALINE HCL 100 MG TABLET PO SCH (09:13)
[2018-05-25] MEDS: CARVEDILOL 3.125 MG TABLET PO SCH (09:16)
[2018-05-25] MEDS ORDERED: LISI-660 PO (09:51)
== END 2018-05-25 10:40 | disposition home or self-care (01) | DRG 198 ==
LOC: EMS 17:51 → 5N 19:30
PROVIDERS: ADMIT Internal Medicine; ATTEND Internal Medicine
DX: R07.89 Other chest pain (principal); I25.10 Atherosclerotic heart disease of native coronary artery without angina pectoris; F11.20 Opioid dependence, uncomplicated; I10 Essential (primary) hypertension; E03.9 Hypothyroidism, unspecified; F17.210 Nicotine dependence, cigarettes, uncomplicated; G89.4 Chronic pain syndrome; J44.9 Chronic obstructive pulmonary disease, unspecified; F32.9 Major depressive disorder, single episode, unspecified; Z79.82 Long term (current) use of aspirin; Z82.49 Family history of ischemic heart disease and other diseases of the circulatory system; Q67.6 Pectus excavatum; Z95.5 Presence of coronary angioplasty implant and graft; Z98.1 Arthrodesis status; Z98.84 Bariatric surgery status
CPT/HCPCS: 87081; 93005; 94640; 96374; 96375; 99285; J1650; J2270; J2405

== ENCOUNTER 2018-06-02 13:38 | Emergency (ER) | payer OTHER ==
[~2018-06-02] VITALS: Ht 167.6 cm; Wt 59.0 kg
[~2018-06-02 13:38] MED LIST changes: +DICL75TA5 PO; +DOCU250C90 PO; +DOXE100 PO; +GUAI600T30 PO; +IRON18TA PO; +LISI-660 PO; -LISI-661 PO; -MET500 PO; +PREM625 PO; +TEMA15CA PO
[2018-06-02 14:42] VITALS: BP 94/61
[2018-06-02] MEDS ORDERED: HYDROCODONE/ACETAMINOPHEN 5-325 MG TABLET PO ONE (15:00)
[2018-06-02 15:09] LABS: BASOPHILS % (AUTO) 0.9 % (0.0-2.0); EOSINOPHILS % (AUTO) 3.4 % (1.0-6.0); HEMATOCRIT 32.6 % (36-46); HEMOGLOBIN 11.2 g/dL (12.0-16.0); LYMPHOCYTES # (AUTO) 1.5 K/uL (1.0-4.8); LYMPHOCYTES % (AUTO) 29.1 % (22.0-44.0); MEAN CORPUSCULAR HEMOGLOBIN 30.7 pg (26.0-34.0); MEAN CORPUSCULAR HGB CONC 34.2 G/dL (31.0-37.0); MEAN CORPUSCULAR VOLUME 90 fL (80-100); MONOCYTES # (AUTO) 0.4 K/uL (0.1-1.0); NEUTROPHILS # (AUTO) 3.2 K/uL (1.8-7.7); NEUTROPHILS % (AUTO) 59.6 % (40.0-70.0); PLATELET COUNT (AUTO) 398 K/uL (150-450); RED BLOOD CELL COUNT(AUTO) 3.63 MIL/uL (4.00-5.20); RED CELL DISTRIBUTION WIDTH 17.1 % (11.5-14.5)
[2018-06-02 15:24] LABS: ANION GAP 9 mmol/L (8-16); CALCIUM, TOTAL 8.2 mg/dL (8.8-10.5); CARBON DIOXIDE 22 mmol/L (22-29); CHLORIDE 105 mmol/L (98-107); CREATININE 0.82 mg/dL (0.60-1.30); GLOMERULAR FILTR. RATE CALC > 60 mL/min (>60); GLUCOSE,RANDOM 75 mg/dL (70-110); POTASSIUM 3.6 mmol/L (3.5-5.1); SODIUM SERUM 136 mmol/L (136-145); UREA NITROGEN, BLOOD 13 mg/dL (7-18)
[2018-06-02 15:27] LABS: B-TYPE NATRIURETIC PEPTIDE 60 pg/mL (0-100)
[2018-06-02 16:00] LABS: ALANINE AMINOTRANSFERASE 19 U/L (12-78); ALBUMIN 2.7 g/dL (3.4-5.0); ALKALINE PHOSPHATASE 89 U/L (46-116); ASPARTATE AMINOTRANSFERASE 16 U/L (15-37); BILIRUBIN,TOTAL 0.1 mg/dL (0.1-1.0); CREATINE KINASE MB 1.3 ng/mL (0-5); CREATINE KINASE, TOTAL 127 U/L (26-192); TOTAL PROTEIN, SERUM 5.8 g/dL (6.4-8.2)
== END 2018-06-02 17:03 | disposition home or self-care (01) ==
LOC: EMS 13:39
DX: R07.89 Other chest pain (principal); R06.02 Shortness of breath; R06.09 Other forms of dyspnea; F17.210 Nicotine dependence, cigarettes, uncomplicated; I25.10 Atherosclerotic heart disease of native coronary artery without angina pectoris; J44.9 Chronic obstructive pulmonary disease, unspecified; I10 Essential (primary) hypertension; E03.9 Hypothyroidism, unspecified; I25.2 Old myocardial infarction; Z98.84 Bariatric surgery status; Z98.62 Peripheral vascular angioplasty status
CPT/HCPCS: 93005; 99285; 99406

== ENCOUNTER 2018-06-20 09:28 | Emergency (ER) | payer OTHER ==
[~2018-06-20] VITALS: Ht 167.6 cm; Wt 56.4 kg
[~2018-06-20 09:28] MED LIST changes: -GUAI600T30 PO
[2018-06-20] MEDS ORDERED: KETOROLAC TROMETHAMINE 30 MG/ML VIAL IVP ONE (10:45)
[2018-06-20] MEDS ORDERED: ONDANSETRON HCL 4 MG/2 ML VIAL IVP ONE (10:45)
[2018-06-20] MEDS ORDERED: FERR-89 PO (10:48)
[2018-06-20 11:01] LABS: BASOPHILS % (AUTO) 1.2 % (0.0-2.0); HEMATOCRIT 37.5 % (36-46); HEMOGLOBIN 12.7 g/dL (12.0-16.0); LYMPHOCYTES # (AUTO) 1.7 K/uL (1.0-4.8); LYMPHOCYTES % (AUTO) 25.4 % (22.0-44.0); MEAN CORPUSCULAR HEMOGLOBIN 31.1 pg (26.0-34.0); MEAN CORPUSCULAR HGB CONC 33.9 G/dL (31.0-37.0); MEAN CORPUSCULAR VOLUME 92 fL (80-100); MONOCYTES # (AUTO) 0.3 K/uL (0.1-1.0); MONOCYTES % (AUTO) 4.2 % (2.0-9.0); NEUTROPHILS # (AUTO) 4.5 K/uL (1.8-7.7); NEUTROPHILS % (AUTO) 67.2 % (40.0-70.0); PLATELET COUNT (AUTO) 309 K/uL (150-450); RED BLOOD CELL COUNT(AUTO) 4.09 MIL/uL (4.00-5.20); RED CELL DISTRIBUTION WIDTH 16.1 % (11.5-14.5)
[2018-06-20 11:13] LABS: ANION GAP 9 mmol/L (8-16); CALCIUM, TOTAL 8.9 mg/dL (8.8-10.5); CARBON DIOXIDE 26 mmol/L (22-29); CHLORIDE 101 mmol/L (98-107); CREATININE 0.73 mg/dL (0.60-1.30); GLOMERULAR FILTR. RATE CALC > 60 mL/min (>60); GLUCOSE,RANDOM 84 mg/dL (70-110); POTASSIUM 4.3 mmol/L (3.5-5.1); SODIUM SERUM 136 mmol/L (136-145); UREA NITROGEN, BLOOD 13 mg/dL (7-18)
[2018-06-20 11:16] LABS: INR 0.9 (0.9-1.1); PROTHROMBIN TIME 9.4 SEC (9.4-11.6)
[2018-06-20 11:20] LABS: APPEARANCE,URINE CLEAR (CLEAR); BILIRUBIN,URINE NEGATIVE (NEGATIVE); GLUCOSE, URINE (UA) NEGATIVE (NEGATIVE); KETONES,URINE NEGATIVE (NEGATIVE); LEUKOCYTE ESTERASE ,URINE NEGATIVE (NEGATIVE); NITRATE,URINE NEGATIVE (NEGATIVE); OCCULT BLOOD,URINE NEGATIVE (NEGATIVE); PROTEIN,URINE NEGATIVE (NEGATIVE); UROBILINOGEN,URINE 0.2 mg/dL (<=1.0)
[2018-06-20 11:25] LABS: B-TYPE NATRIURETIC PEPTIDE 59 pg/mL (0-100)
[2018-06-20 11:38] LABS: ALANINE AMINOTRANSFERASE 19 U/L (12-78); ALBUMIN 3.3 g/dL (3.4-5.0); ALKALINE PHOSPHATASE 93 U/L (46-116); ASPARTATE AMINOTRANSFERASE 17 U/L (15-37); BILIRUBIN,TOTAL 0.2 mg/dL (0.1-1.0); CREATINE KINASE MB 2.8 ng/mL (0-5); CREATINE KINASE, TOTAL 171 U/L (26-192); TOTAL PROTEIN, SERUM 6.7 g/dL (6.4-8.2)
[2018-06-20 15:09] VITALS: BP 101/64
[2018-06-20] MEDS ORDERED: ACETAMINOPHEN 500 MG TABLET PO ONE (15:30)
== END 2018-06-20 16:09 | disposition home or self-care (01) ==
LOC: EMS 09:29
DX: R07.2 Precordial pain (principal); R42 Dizziness and giddiness; I25.10 Atherosclerotic heart disease of native coronary artery without angina pectoris; J44.9 Chronic obstructive pulmonary disease, unspecified; I10 Essential (primary) hypertension; I25.2 Old myocardial infarction; E03.9 Hypothyroidism, unspecified; F17.210 Nicotine dependence, cigarettes, uncomplicated; Z98.62 Peripheral vascular angioplasty status
CPT/HCPCS: 36415; 71045; 80053; 81003; 82550; 82553; 83880; 84484; 85025; 85610; 85730; 93005; 96374; 96375; 99285; J1885; J2405

== ENCOUNTER 2018-07-09 13:05 | Emergency (ER) | payer OTHER ==
[~2018-07-09] VITALS: Ht 165.1 cm; Wt 62.0 kg
[~2018-07-09 13:05] MED LIST changes: +FERR-89 PO; -IRON18TA PO
[2018-07-09] MEDS ORDERED: SODIUM CHLORIDE 0.9% 1,000 ML IV ONE (13:45)
[2018-07-09] MEDS ORDERED: BACITRACIN 0.9 GM PACKET OINTMENT TP ONE (13:45)
[2018-07-09] MEDS ORDERED: ASPIRIN 81 MG CHEWABLE TABLET PO ONE (13:45)
[2018-07-09] MEDS ORDERED: NITROGLYCERIN 2% (1 GM=INCH) PACKET TP ONE (13:45)
[2018-07-09 13:54] LABS: BASOPHILS % (AUTO) 0.6 % (0.0-2.0); EOSINOPHILS % (AUTO) 3.7 % (1.0-6.0); HEMATOCRIT 36.7 % (36-46); HEMOGLOBIN 12.6 g/dL (12.0-16.0); LYMPHOCYTES # (AUTO) 1.8 K/uL (1.0-4.8); LYMPHOCYTES % (AUTO) 22.9 % (22.0-44.0); MEAN CORPUSCULAR HEMOGLOBIN 31.8 pg (26.0-34.0); MEAN CORPUSCULAR HGB CONC 34.2 G/dL (31.0-37.0); MEAN CORPUSCULAR VOLUME 93 fL (80-100); MONOCYTES # (AUTO) 0.4 K/uL (0.1-1.0); MONOCYTES % (AUTO) 4.8 % (2.0-9.0); NEUTROPHILS # (AUTO) 5.3 K/uL (1.8-7.7); PLATELET COUNT (AUTO) 367 K/uL (150-450); RED BLOOD CELL COUNT(AUTO) 3.95 MIL/uL (4.00-5.20); RED CELL DISTRIBUTION WIDTH 16.4 % (11.5-14.5)
[2018-07-09 14:05] LABS: ANION GAP 9 mmol/L (8-16); CALCIUM, TOTAL 8.5 mg/dL (8.8-10.5); CARBON DIOXIDE 23 mmol/L (22-29); CHLORIDE 109 mmol/L (98-107); CREATININE 0.83 mg/dL (0.60-1.30); GLOMERULAR FILTR. RATE CALC > 60 mL/min (>60); GLUCOSE,RANDOM 87 mg/dL (70-110); POTASSIUM 3.9 mmol/L (3.5-5.1); SODIUM SERUM 141 mmol/L (136-145); UREA NITROGEN, BLOOD 14 mg/dL (7-18)
[2018-07-09 14:11] LABS: ALANINE AMINOTRANSFERASE 48 U/L (12-78); ALBUMIN 3.1 g/dL (3.4-5.0); ALKALINE PHOSPHATASE 98 U/L (46-116); ASPARTATE AMINOTRANSFERASE 52 U/L (15-37); BILIRUBIN,TOTAL 0.2 mg/dL (0.1-1.0); TOTAL PROTEIN, SERUM 6.4 g/dL (6.4-8.2)
[2018-07-09] MEDS ORDERED: MORPHINE SULFATE 4 MG/ML SYRINGE IVP ONE (14:15)
[2018-07-09] MEDS ORDERED: KETOROLAC TROMETHAMINE 30 MG/ML VIAL IVP ONE (15:00)
[2018-07-09 15:54] VITALS: BP 127/82
== END 2018-07-09 15:57 | disposition home or self-care (01) ==
LOC: EMS 13:06
DX: R07.89 Other chest pain (principal); M54.5 Low back pain; I25.10 Atherosclerotic heart disease of native coronary artery without angina pectoris; J44.9 Chronic obstructive pulmonary disease, unspecified; I10 Essential (primary) hypertension; E03.9 Hypothyroidism, unspecified; I25.2 Old myocardial infarction; F17.210 Nicotine dependence, cigarettes, uncomplicated; Z98.62 Peripheral vascular angioplasty status; Z98.84 Bariatric surgery status; Z79.82 Long term (current) use of aspirin; Z79.899 Other long term (current) drug therapy
CPT/HCPCS: 36415; 71045; 72100; 80053; 84484; 84703; 85025; 93005; 96374; 96375; 99285; J1885; J2270; J7030

== ENCOUNTER 2018-07-11 06:13 | Inpatient (IN) | payer OTHER ==
[~2018-07-11] VITALS: Ht 157.5 cm; Wt 63.5 kg
[2018-07-11 06:46] LABS: ANION GAP 7 mmol/L (8-16); BASOPHILS % (AUTO) 0.9 % (0.0-2.0); CALCIUM, TOTAL 8.5 mg/dL (8.8-10.5); CARBON DIOXIDE 24 mmol/L (22-29); CHLORIDE 108 mmol/L (98-107); CREATININE 0.74 mg/dL (0.60-1.30); EOSINOPHILS % (AUTO) 3.2 % (1.0-6.0); GLOMERULAR FILTR. RATE CALC > 60 mL/min (>60); GLUCOSE,RANDOM 81 mg/dL (70-110); HEMATOCRIT 37.3 % (36-46); HEMOGLOBIN 12.6 g/dL (12.0-16.0); LYMPHOCYTES # (AUTO) 1.5 K/uL (1.0-4.8); LYMPHOCYTES % (AUTO) 20.1 % (22.0-44.0); MEAN CORPUSCULAR HGB CONC 33.7 G/dL (31.0-37.0); MEAN CORPUSCULAR VOLUME 95 fL (80-100); MONOCYTES # (AUTO) 0.3 K/uL (0.1-1.0); MONOCYTES % (AUTO) 3.5 % (2.0-9.0); NEUTROPHILS # (AUTO) 5.3 K/uL (1.8-7.7); NEUTROPHILS % (AUTO) 72.3 % (40.0-70.0); PLATELET COUNT (AUTO) 364 K/uL (150-450); POTASSIUM 3.9 mmol/L (3.5-5.1); RED BLOOD CELL COUNT(AUTO) 3.93 MIL/uL (4.00-5.20); RED CELL DISTRIBUTION WIDTH 16.1 % (11.5-14.5); SODIUM SERUM 139 mmol/L (136-145); UREA NITROGEN, BLOOD 14 mg/dL (7-18)
[2018-07-11 06:52] LABS: INR 0.9 (0.9-1.1); PROTHROMBIN TIME 9.5 SEC (9.4-11.6)
[2018-07-11 07:10] LABS: ALANINE AMINOTRANSFERASE 35 U/L (12-78); ALKALINE PHOSPHATASE 95 U/L (46-116); ASPARTATE AMINOTRANSFERASE 34 U/L (15-37); BILIRUBIN,TOTAL 0.2 mg/dL (0.1-1.0); CREATINE KINASE MB 3.9 ng/mL (0-5); CREATINE KINASE, TOTAL 210 U/L (26-192); TOTAL PROTEIN, SERUM 6.2 g/dL (6.4-8.2)
[2018-07-11 07:19] LABS: B-TYPE NATRIURETIC PEPTIDE 157 pg/mL (0-100)
[2018-07-11 07:19] LABS: APPEARANCE,URINE CLEAR (CLEAR); BILIRUBIN,URINE NEGATIVE (NEGATIVE); GLUCOSE, URINE (UA) NEGATIVE (NEGATIVE); KETONES,URINE NEGATIVE (NEGATIVE); LEUKOCYTE ESTERASE ,URINE NEGATIVE (NEGATIVE); NITRATE,URINE NEGATIVE (NEGATIVE); OCCULT BLOOD,URINE NEGATIVE (NEGATIVE); PROTEIN,URINE NEGATIVE (NEGATIVE)
[2018-07-11] MEDS ORDERED: ACETAMINOPHEN 325 MG TABLET PO PRN (09:15)
[2018-07-11] MEDS ORDERED: MAGNESIUM HYDROXIDE SUSPENSION 30 ML UDCUP PO PRN (09:15)
[2018-07-11] MEDS ORDERED: ZOLPIDEM TARTRATE 5 MG TABLET PO PRN (09:15)
[2018-07-11] MEDS ORDERED: BISACODYL 10 MG RECTAL RECTAL SUPPOSITORY PR PRN (09:15)
[2018-07-11] MEDS: DOCUSATE SODIUM 100 MG CAPSULE PO SCH ×4 (09:15→21:41)
[2018-07-11] MEDS: PANTOPRAZOLE SODIUM 40 MG DR TABLET PO SCH (09:27)
[2018-07-11] MEDS: HEPARIN SODIUM,PORCINE 5,000 UNITS/ML VIAL SQ SCH ×3 (09:27→23:52)
[2018-07-11] MEDS: MORPHINE SULFATE 2 MG/ML SYRINGE IVP PRN ×4 (09:29→21:38)
[2018-07-11 09:34] VITALS: BP 109/71
[2018-07-11] MEDS: ONDANSETRON HCL 4 MG/2 ML VIAL IVP PRN ×2 (11:26→18:49)
[2018-07-11 13:12] VITALS: BP 121/74
[2018-07-11] MEDS: IPRATROPIUM BROMIDE 0.5 MG/2.5 ML NEB SOLUTION NEB SCH ×2 (14:00→19:17)
[2018-07-11] MEDS: ALBUTEROL SULFATE 2.5 MG/0.5 ML NEB SOLUTION NEB SCH ×2 (14:00→19:17)
[2018-07-11] MEDS ORDERED: MET500 PO (14:34)
[2018-07-11] MEDS ORDERED: AMLO-511 PO (14:34)
[2018-07-11] MEDS ORDERED: ATOR40TA28 PO (14:34)
[2018-07-11 15:03] VITALS: BP 108/78
[2018-07-11] MEDS ORDERED: BUTALBITAL/ACETAMINOPHEN/CAFFEINE 50-325-40 MG TABLET PO PRN (15:15)
[2018-07-11] MEDS: MELOXICAM 7.5 MG TABLET PO SCH (15:30)
[2018-07-11] MEDS ORDERED: LISI-661 PO (16:14)
[2018-07-11] MEDS: ATORVASTATIN CALCIUM 40 MG TABLET PO SCH (16:31)
[2018-07-11] MEDS: CLOPIDOGREL BISULFATE 75 MG TABLET PO SCH (16:31)
[2018-07-11] MEDS: ISOSORBIDE MONONITRATE 30 MG ER TABLET PO SCH (16:31)
[2018-07-11] MEDS: QUEtiapine FUMARATE 100 MG TABLET PO SCH (16:50)
[2018-07-11] MEDS: ARIPiprazole 10 MG TABLET PO SCH (16:50)
[2018-07-11] MEDS: METHOCARBAMOL 500 MG TABLET PO SCH ×2 (16:50→21:41)
[2018-07-11] MEDS: ESTROGENS,CONJUGATED 0.625 MG TABLET PO SCH (16:50)
[2018-07-11] MEDS: SERTRALINE HCL 100 MG TABLET PO SCH (16:50)
[2018-07-11] MEDS: FERROUS SULFATE 325 MG EC TABLET PO SCH (18:00)
[2018-07-11 19:58] VITALS: BP 90/60
[2018-07-11 20:34] VITALS: BP 108/66
[2018-07-11] MEDS: HYDROCODONE/ACETAMINOPHEN 5-325 MG TABLET PO PRN (20:40)
[2018-07-11] MEDS ORDERED: TEMAZEPAM 15 MG CAPSULE PO SCH (21:00)
[2018-07-11] MEDS ORDERED: DOXEPIN HCL 25 MG CAPSULE PO SCH (21:00)
[2018-07-11] MEDS: CARVEDILOL 3.125 MG TABLET PO SCH (21:00)
[2018-07-11] MEDS ORDERED: DICLOFENAC SODIUM 75 MG DR TABLET PO SCH (21:00)
[2018-07-11] MEDS: FAMOTIDINE 20 MG TABLET PO SCH (21:47)
[2018-07-12] VITALS (8 sets, daily range): BP systolic 85–115; BP diastolic 55–74
[2018-07-12] MEDS: MORPHINE SULFATE 2 MG/ML SYRINGE IVP PRN ×2 (02:18→07:44)
[2018-07-12] MEDS: ALBUTEROL SULFATE 2.5 MG/0.5 ML NEB SOLUTION NEB SCH ×5 (02:25→23:49)
[2018-07-12] MEDS: IPRATROPIUM BROMIDE 0.5 MG/2.5 ML NEB SOLUTION NEB SCH ×5 (02:25→23:48)
[2018-07-12] MEDS: LEVOTHYROXINE SODIUM 125 MCG TABLET PO SCH (06:06)
[2018-07-12] MEDS: HEPARIN SODIUM,PORCINE 5,000 UNITS/ML VIAL SQ SCH ×3 (08:00→23:48)
[2018-07-12] MEDS: ISOSORBIDE MONONITRATE 30 MG ER TABLET PO SCH (09:00)
[2018-07-12] MEDS: LISINOPRIL 10 MG TABLET PO SCH (09:00)
[2018-07-12] MEDS: AmLODIPine BESYLATE 5 MG TABLET PO SCH (09:00)
[2018-07-12] MEDS: PANTOPRAZOLE SODIUM 40 MG DR TABLET PO SCH (09:00)
[2018-07-12] MEDS: CARVEDILOL 3.125 MG TABLET PO SCH ×2 (09:00→19:58)
[2018-07-12] MEDS: ATORVASTATIN CALCIUM 40 MG TABLET PO SCH (09:32)
[2018-07-12] MEDS: QUEtiapine FUMARATE 100 MG TABLET PO SCH (09:32)
[2018-07-12] MEDS: FERROUS SULFATE 325 MG EC TABLET PO SCH ×3 (09:32→16:23)
[2018-07-12] MEDS: CLOPIDOGREL BISULFATE 75 MG TABLET PO SCH (09:32)
[2018-07-12] MEDS: FAMOTIDINE 20 MG TABLET PO SCH ×2 (09:32→19:58)
[2018-07-12] MEDS: DOCUSATE SODIUM 100 MG CAPSULE PO SCH ×2 (09:34→19:59)
[2018-07-12] MEDS: ESTROGENS,CONJUGATED 0.625 MG TABLET PO SCH (09:54)
[2018-07-12] MEDS: MELOXICAM 7.5 MG TABLET PO SCH (09:55)
[2018-07-12] MEDS: SERTRALINE HCL 100 MG TABLET PO SCH (09:55)
[2018-07-12] MEDS: METHOCARBAMOL 500 MG TABLET PO SCH ×3 (09:55→19:58)
[2018-07-12] MEDS: ARIPiprazole 10 MG TABLET PO SCH (09:55)
[2018-07-12] MEDS ORDERED: TraMADol HCL 50 MG TABLET PO PRN (12:15)
[2018-07-12] MEDS: HYDROCODONE/ACETAMINOPHEN 5-325 MG TABLET PO PRN ×3 (12:47→22:13)
[2018-07-12] MEDS ORDERED: TEMAZEPAM 15 MG CAPSULE PO PRN (20:15)
[2018-07-12] MEDS ORDERED: BENZOCAINE/MENTHOL LOZENGE PO PRN (20:15)
[2018-07-13] VITALS (12 sets, daily range): BP systolic 96–125; BP diastolic 59–75
[2018-07-13] MEDS: HYDROCODONE/ACETAMINOPHEN 5-325 MG TABLET PO PRN ×4 (02:16→14:55)
[2018-07-13] MEDS: LEVOTHYROXINE SODIUM 125 MCG TABLET PO SCH (05:58)
[2018-07-13] MEDS: ESTROGENS,CONJUGATED 0.625 MG TABLET PO SCH (08:13)
[2018-07-13] MEDS: MELOXICAM 7.5 MG TABLET PO SCH (08:13)
[2018-07-13] MEDS: HEPARIN SODIUM,PORCINE 5,000 UNITS/ML VIAL SQ SCH ×2 (08:20→16:00)
[2018-07-13] MEDS: IPRATROPIUM BROMIDE 0.5 MG/2.5 ML NEB SOLUTION NEB SCH (08:35)
[2018-07-13] MEDS: ALBUTEROL SULFATE 2.5 MG/0.5 ML NEB SOLUTION NEB SCH (08:35)
[2018-07-13] MEDS ORDERED: MULTIVITAMINS WITH MINERALS, THERAPEUTIC TABLET PO SCH (09:00)
[2018-07-13] MEDS ORDERED: REGADENOSON 0.4 MG/5 ML PF SYRINGE IVP ONE ×2 (09:00→16:29)
[2018-07-13] MEDS ORDERED: AMINOPHYLLINE 25 MG/ML 10 ML VIAL IVP ONE (09:27)
[2018-07-13] MEDS: ISOSORBIDE MONONITRATE 30 MG ER TABLET PO SCH (09:58)
[2018-07-13] MEDS: METHOCARBAMOL 500 MG TABLET PO SCH ×2 (09:58→15:04)
[2018-07-13] MEDS: FERROUS SULFATE 325 MG EC TABLET PO SCH ×2 (09:58→12:39)
[2018-07-13] MEDS: PANTOPRAZOLE SODIUM 40 MG DR TABLET PO SCH (09:58)
[2018-07-13] MEDS: FAMOTIDINE 20 MG TABLET PO SCH (09:58)
[2018-07-13] MEDS: DOCUSATE SODIUM 100 MG CAPSULE PO SCH (09:58)
[2018-07-13] MEDS: CLOPIDOGREL BISULFATE 75 MG TABLET PO SCH (09:58)
[2018-07-13] MEDS: ATORVASTATIN CALCIUM 40 MG TABLET PO SCH (09:58)
[2018-07-13] MEDS: CARVEDILOL 3.125 MG TABLET PO SCH (09:59)
[2018-07-13] MEDS: AmLODIPine BESYLATE 5 MG TABLET PO SCH (12:40)
[2018-07-13] MEDS: LISINOPRIL 10 MG TABLET PO SCH (12:40)
[2018-07-13] MEDS ORDERED: AMINOCAPROIC ACID 250 MG/ML 20 ML VIAL IV ONE (16:29)
== END 2018-07-13 16:30 | disposition home or self-care (01) | DRG 198 ==
LOC: EMS 06:14 → 5S 08:37 → 5N 21:25
PROVIDERS: ADMIT Internal Medicine; ATTEND Internal Medicine
DX: I25.10 Atherosclerotic heart disease of native coronary artery without angina pectoris (principal); J18.9 Pneumonia, unspecified organism; J44.0 Chronic obstructive pulmonary disease with (acute) lower respiratory infection; F11.20 Opioid dependence, uncomplicated; I10 Essential (primary) hypertension; E03.9 Hypothyroidism, unspecified; F32.9 Major depressive disorder, single episode, unspecified; F17.200 Nicotine dependence, unspecified, uncomplicated; F41.1 Generalized anxiety disorder; G89.4 Chronic pain syndrome; I25.2 Old myocardial infarction; Z98.84 Bariatric surgery status; Z82.49 Family history of ischemic heart disease and other diseases of the circulatory system; Q67.6 Pectus excavatum; Z98.1 Arthrodesis status
CPT/HCPCS: 78452; 87081; 93005; 93017; 94640; 99285; J1644; J2270; J2405; J2785; J3490

== ENCOUNTER 2018-07-17 12:37 | Emergency (ER) | payer OTHER ==
[~2018-07-17] VITALS: Ht 170.2 cm; Wt 72.2 kg
[~2018-07-17 12:37] MED LIST changes: +ATOR40TA28 PO; -DICL75TA5 PO; -LISI-660 PO; +MET500 PO
[2018-07-17 14:17] LABS: BASOPHILS % (AUTO) 0.8 % (0.0-2.0); EOSINOPHILS % (AUTO) 3.5 % (1.0-6.0); HEMATOCRIT 33.6 % (36-46); HEMOGLOBIN 11.3 g/dL (12.0-16.0); LYMPHOCYTES # (AUTO) 1.6 K/uL (1.0-4.8); LYMPHOCYTES % (AUTO) 37.1 % (22.0-44.0); MEAN CORPUSCULAR HEMOGLOBIN 32.3 pg (26.0-34.0); MEAN CORPUSCULAR HGB CONC 33.7 G/dL (31.0-37.0); MEAN CORPUSCULAR VOLUME 96 fL (80-100); MONOCYTES # (AUTO) 0.4 K/uL (0.1-1.0); NEUTROPHILS # (AUTO) 2.2 K/uL (1.8-7.7); NEUTROPHILS % (AUTO) 49.6 % (40.0-70.0); PLATELET COUNT (AUTO) 310 K/uL (150-450); RED CELL DISTRIBUTION WIDTH 16.6 % (11.5-14.5)
[2018-07-17 14:26] VITALS: BP 94/54
[2018-07-17 14:31] LABS: ANION GAP 7 mmol/L (8-16); CALCIUM, TOTAL 7.9 mg/dL (8.8-10.5); CARBON DIOXIDE 27 mmol/L (22-29); CHLORIDE 105 mmol/L (98-107); CREATININE 0.66 mg/dL (0.60-1.30); GLOMERULAR FILTR. RATE CALC > 60 mL/min (>60); GLUCOSE,RANDOM 94 mg/dL (70-110); POTASSIUM 4.2 mmol/L (3.5-5.1); SODIUM SERUM 139 mmol/L (136-145); UREA NITROGEN, BLOOD 15 mg/dL (7-18)
[2018-07-17] MEDS ORDERED: HYDROCODONE/ACETAMINOPHEN 5-325 MG TABLET PO ONE (15:00)
[2018-07-17] MEDS ORDERED: ONDANSETRON HCL 4 MG TABLET PO ONE (15:00)
== END 2018-07-17 15:45 | disposition home or self-care (01) ==
LOC: EMS 12:41
DX: R07.89 Other chest pain (principal); R11.2 Nausea with vomiting, unspecified; R42 Dizziness and giddiness; F17.210 Nicotine dependence, cigarettes, uncomplicated; I25.10 Atherosclerotic heart disease of native coronary artery without angina pectoris; J44.9 Chronic obstructive pulmonary disease, unspecified; I10 Essential (primary) hypertension; E03.9 Hypothyroidism, unspecified; I25.2 Old myocardial infarction; Z98.62 Peripheral vascular angioplasty status; Z95.1 Presence of aortocoronary bypass graft; Z79.82 Long term (current) use of aspirin
CPT/HCPCS: 36415; 71045; 80048; 84484; 85025; 93005; 99284; 99406; Q0162

== ENCOUNTER 2018-09-21 12:12 | Emergency (ER) | payer OTHER ==
[~2018-09-21] VITALS: Ht 167.6 cm; Wt 75.0 kg
[~2018-09-21 12:12] MED LIST changes: -DOXE100 PO; -QUET100T PO
[2018-09-21] MEDS ORDERED: LISI-661 PO (13:00)
[2018-09-21] MEDS ORDERED: AMLO-511 PO (13:00)
[2018-09-21] MEDS ORDERED: DICL75TA5 PO (13:00)
[2018-09-21] MEDS ORDERED: ACET-784 PO (13:00)
[2018-09-21] MEDS ORDERED: DOXE50 PO (13:00)
[2018-09-21] MEDS ORDERED: ZOLP10TA7 PO (13:00)
[2018-09-21] MEDS ORDERED: HYDR25TA PO (13:00)
[2018-09-21] MEDS ORDERED: KETOROLAC TROMETHAMINE 30 MG/ML VIAL IVP ONE (13:15)
[2018-09-21] MEDS ORDERED: DIAZEPAM 5 MG/ML 2 ML SYRINGE IVP ONE (13:15)
[2018-09-21] MEDS ORDERED: SODIUM CHLORIDE 0.9% 1,000 ML IV ONE (13:15)
[2018-09-21] MEDS ORDERED: MORPHINE SULFATE 4 MG/ML SYRINGE IVP ONE (14:15)
[2018-09-21 14:28] VITALS: BP 112/59
== END 2018-09-21 14:56 | disposition home or self-care (01) ==
LOC: EMS 12:14
DX: M54.5 Low back pain (principal); G89.29 Other chronic pain; I11.9 Hypertensive heart disease without heart failure; I25.10 Atherosclerotic heart disease of native coronary artery without angina pectoris; F32.9 Major depressive disorder, single episode, unspecified; E03.9 Hypothyroidism, unspecified; I25.2 Old myocardial infarction; F17.210 Nicotine dependence, cigarettes, uncomplicated; Z79.01 Long term (current) use of anticoagulants; Z79.82 Long term (current) use of aspirin; Z79.899 Other long term (current) drug therapy
CPT/HCPCS: 96374; 96375; 99284; J1885 ×2; J2270; J7030

== ENCOUNTER 2018-10-02 15:23 | Inpatient (IN) | payer OTHER ==
[~2018-10-02] VITALS: Ht 167.6 cm; Wt 60.0 kg
[~2018-10-02 15:23] MED LIST changes: +ACET-784 PO; +AMLO-511 PO; +ASPI81 PO; +DICL75TA5 PO; +DOXE50 PO; +DSS100 PO; +HYDR25TA PO; +LISI-661 PO; +ZOLP10TA7 PO
[2018-10-02] MEDS ORDERED: OxyCODONE HCL/ACETAMINOPHEN 5-325 MG TABLET PO ONE (17:45)
[2018-10-02] MEDS ORDERED: DIAZEPAM 2 MG TABLET PO ONE (17:45)
[2018-10-02 20:09] LABS: HEMATOCRIT 38.7 % (36-46); MEAN CORPUSCULAR HEMOGLOBIN 32.5 pg (26.0-34.0); MEAN CORPUSCULAR HGB CONC 33.7 G/dL (31.0-37.0); MEAN CORPUSCULAR VOLUME 96 fL (80-100); PLATELET COUNT (AUTO) 277 K/uL (150-450); RED BLOOD CELL COUNT(AUTO) 4.02 MIL/uL (4.00-5.20); RED CELL DISTRIBUTION WIDTH 13.6 % (11.5-14.5)
[2018-10-02 20:16] LABS: CALCIUM, TOTAL 8.5 mg/dL (8.8-10.5); CREATININE 2.43 mg/dL (0.60-1.30); POTASSIUM 4.2 mmol/L (3.5-5.1)
[2018-10-02 20:22] LABS: ALBUMIN 3.1 g/dL (3.4-5.0); BILIRUBIN,TOTAL 0.4 mg/dL (0.1-1.0); TOTAL PROTEIN, SERUM 6.9 g/dL (6.4-8.2)
[2018-10-02] MEDS ORDERED: ONDANSETRON HCL 4 MG/2 ML VIAL ONE (20:51)
[2018-10-02 20:55] LABS: BAND NEUTROPHILS % (MANUAL) 45 % (0-5); EOSINOPHILS % (MANUAL) 1 % (1-6); LYMPHOCYTES % (MANUAL) 5 % (22-44); MONOCYTES % (MANUAL) 2 % (2-9); SEGMENTED NEUTROPHILS % 47 % (40-70)
[2018-10-02] MEDS ORDERED: IPRATROPIUM BROMIDE 0.5 MG/2.5 ML NEB SOLUTION NEB PRN (21:15)
[2018-10-02] MEDS ORDERED: ALBUTEROL SULFATE 2.5 MG/0.5 ML NEB SOLUTION NEB PRN (21:15)
[2018-10-02] MEDS ORDERED: ACETAMINOPHEN 325 MG TABLET PO PRN (21:15)
[2018-10-02] MEDS ORDERED: MAGNESIUM HYDROXIDE SUSPENSION 30 ML UDCUP PO PRN (21:15)
[2018-10-02] MEDS ORDERED: BISACODYL 10 MG RECTAL RECTAL SUPPOSITORY PR PRN (21:15)
[2018-10-02] MEDS ORDERED: ONDANSETRON HCL 4 MG/2 ML VIAL IVP ONE (21:30)
[2018-10-02] MEDS ORDERED: SODIUM CHLORIDE 0.9% 1,000 ML IV ONE ×2 (22:30→23:15)
[2018-10-03] MEDS ORDERED: SODIUM CHLORIDE 0.9% 1,750 ML IV ONE (02:30)
[2018-10-03] MEDS ORDERED: PHENYLEPHRINE 200 MG/D5%-WATER 250 ML IV PRN (02:30)
[2018-10-03 04:00] VITALS: BP 82/56
[2018-10-03 04:28] LABS: APPEARANCE,URINE TURBID (CLEAR); GLUCOSE, URINE (UA) NEGATIVE (NEGATIVE); KETONES,URINE NEGATIVE (NEGATIVE); LEUKOCYTE ESTERASE ,URINE MODERATE (NEGATIVE); NITRATE,URINE NEGATIVE (NEGATIVE); PH,URINE 6.5 (5.0-8.0); PROTEIN,URINE SEE CONFIRM (NEGATIVE)
[2018-10-03 04:33] LABS: AMPHET/METH SCREEN,URINE NEGATIVE (NEGATIVE); BARBITURATE SCREEN, URINE NEGATIVE (NEGATIVE); BENZODIAZEPINES SCREEN,URINE POSITIVE (NEGATIVE); CANNABINOID SCREEN,URINE NEGATIVE (NEGATIVE); COCAINE SCREEN,URINE NEGATIVE (NEGATIVE); METHADONE SCREEN, URINE NEGATIVE (NEGATIVE); OPIATE SCREEN,URINE POSITIVE (NEGATIVE); PHENCYCLIDINE SCREEN,URINE NEGATIVE (NEGATIVE)
[2018-10-03 04:37] LABS: BILIRUBIN,URINE PRELIM. POSITIVE (NEGATIVE); OCCULT BLOOD,URINE MODERATE (NEGATIVE)
[2018-10-03 04:38] LABS: BACTERIA,URINE Many /HPF (None Seen); SULFOSALICYLIC ACID,URINE 3+ (Negative)
[2018-10-03 04:49] LABS: BASOPHILS % (AUTO) 0.4 % (0.0-2.0); EOSINOPHILS % (AUTO) 1.5 % (1.0-6.0); HEMATOCRIT 35.8 % (36-46); HEMOGLOBIN 12.1 g/dL (12.0-16.0); LYMPHOCYTES % (AUTO) 10.9 % (22.0-44.0); MEAN CORPUSCULAR HEMOGLOBIN 32.6 pg (26.0-34.0); MEAN CORPUSCULAR HGB CONC 33.9 G/dL (31.0-37.0); MEAN CORPUSCULAR VOLUME 96 fL (80-100); MONOCYTES # (AUTO) 0.5 K/uL (0.1-1.0); MONOCYTES % (AUTO) 5.1 % (2.0-9.0); NEUTROPHILS # (AUTO) 7.5 K/uL (1.8-7.7); NEUTROPHILS % (AUTO) 82.1 % (40.0-70.0); PLATELET COUNT (AUTO) 257 K/uL (150-450); RED BLOOD CELL COUNT(AUTO) 3.71 MIL/uL (4.00-5.20); RED CELL DISTRIBUTION WIDTH 13.5 % (11.5-14.5)
[2018-10-03 04:59] LABS: CALCIUM, TOTAL 7.4 mg/dL (8.8-10.5); CREATININE 1.96 mg/dL (0.60-1.30)
[2018-10-03] MEDS: LEVOTHYROXINE SODIUM 125 MCG TABLET PO SCH (06:53)
[2018-10-03 08:00] VITALS: BP 96/60
[2018-10-03] MEDS: CARVEDILOL 3.125 MG TABLET PO SCH ×2 (08:52→20:22)
[2018-10-03] MEDS: ISOSORBIDE MONONITRATE 30 MG ER TABLET PO SCH (08:53)
[2018-10-03] MEDS ORDERED: DOCUSATE SODIUM 100 MG CAPSULE PO SCH (09:00)
[2018-10-03] MEDS: PANTOPRAZOLE SODIUM 40 MG/VIAL IVP SCH (09:00)
[2018-10-03] MEDS: ASPIRIN 81 MG CHEWABLE TABLET PO SCH (09:58)
[2018-10-03] MEDS: CLOPIDOGREL BISULFATE 75 MG TABLET PO SCH (09:58)
[2018-10-03] MEDS: FERROUS SULFATE 325 MG EC TABLET PO SCH ×3 (09:58→15:59)
[2018-10-03] MEDS: SERTRALINE HCL 100 MG TABLET PO SCH (09:58)
[2018-10-03] MEDS: ATORVASTATIN CALCIUM 40 MG TABLET PO SCH (09:58)
[2018-10-03] MEDS: DOCUSATE SODIUM 100 MG CAPSULE PO SCH ×2 (09:58→20:23)
[2018-10-03] MEDS: ESTROGENS,CONJUGATED 0.625 MG TABLET PO SCH (09:59)
[2018-10-03] MEDS: METHOCARBAMOL 500 MG TABLET PO SCH ×4 (09:59→20:23)
[2018-10-03] MEDS: ARIPiprazole 10 MG TABLET PO SCH (10:00)
[2018-10-03] MEDS: HEPARIN SODIUM,PORCINE 5,000 UNITS/ML VIAL SQ SCH ×4 (10:00→23:48)
[2018-10-03] MEDS: FAMOTIDINE 20 MG TABLET PO SCH (10:04)
[2018-10-03] MEDS: MELOXICAM 7.5 MG TABLET PO SCH (10:04)
[2018-10-03 12:00] VITALS: BP 88/60
[2018-10-03] MEDS ORDERED: PNEUMOCOCCAL VACCINE POLYVALENT 0.5 ML VIAL [PPSV23] IM ONE (14:15)
[2018-10-03 14:17] VITALS: BP 83/56
[2018-10-03 20:02] VITALS: BP 90/51
[2018-10-03] MEDS: ONDANSETRON HCL 4 MG/2 ML VIAL IVP PRN (20:24)
[2018-10-03] MEDS ORDERED: TEMAZEPAM 15 MG CAPSULE PO SCH (21:00)
[2018-10-03] MEDS: ZOLPIDEM TARTRATE 5 MG TABLET PO PRN (21:48)
[2018-10-04 00:01] VITALS: BP 90/57
[2018-10-04] MEDS: ONDANSETRON HCL 4 MG/2 ML VIAL IVP PRN (02:41)
[2018-10-04 04:02] VITALS: BP 93/72
[2018-10-04] MEDS: LEVOTHYROXINE SODIUM 125 MCG TABLET PO SCH (05:59)
[2018-10-04 07:25] VITALS: BP 131/78
[2018-10-04] MEDS: FAMOTIDINE 20 MG TABLET PO SCH (08:49)
[2018-10-04] MEDS: FERROUS SULFATE 325 MG EC TABLET PO SCH ×3 (08:49→16:52)
[2018-10-04] MEDS: CLOPIDOGREL BISULFATE 75 MG TABLET PO SCH (08:49)
[2018-10-04] MEDS: CARVEDILOL 3.125 MG TABLET PO SCH ×2 (08:49→20:17)
[2018-10-04] MEDS: PANTOPRAZOLE SODIUM 40 MG/VIAL IVP SCH (08:49)
[2018-10-04] MEDS: ISOSORBIDE MONONITRATE 30 MG ER TABLET PO SCH (08:49)
[2018-10-04] MEDS: DOCUSATE SODIUM 100 MG CAPSULE PO SCH ×2 (08:50→20:17)
[2018-10-04] MEDS: MELOXICAM 7.5 MG TABLET PO SCH (08:50)
[2018-10-04] MEDS: ATORVASTATIN CALCIUM 40 MG TABLET PO SCH (08:50)
[2018-10-04] MEDS: ASPIRIN 81 MG CHEWABLE TABLET PO SCH (08:50)
[2018-10-04] MEDS: SERTRALINE HCL 100 MG TABLET PO SCH (08:50)
[2018-10-04] MEDS: METHOCARBAMOL 500 MG TABLET PO SCH ×4 (08:50→20:17)
[2018-10-04] MEDS: ESTROGENS,CONJUGATED 0.625 MG TABLET PO SCH (08:51)
[2018-10-04] MEDS: HEPARIN SODIUM,PORCINE 5,000 UNITS/ML VIAL SQ SCH ×3 (08:51→23:32)
[2018-10-04] MEDS: ARIPiprazole 10 MG TABLET PO SCH (09:03)
[2018-10-04 11:28] VITALS: BP 109/75
[2018-10-04] MEDS ORDERED: LORazepam 2 MG/ML VIAL IVP ONE (13:00)
[2018-10-04] MEDS: MUPIROCIN CALCIUM 2% 22 GM OINTMENT NASAL SCH ×2 (14:23→20:17)
[2018-10-04 16:34] VITALS: BP 111/78
[2018-10-04] MEDS: ZOLPIDEM TARTRATE 5 MG TABLET PO PRN (20:17)
[2018-10-04 20:24] VITALS: BP 113/74
[2018-10-05] VITALS (7 sets, daily range): BP systolic 112–133; BP diastolic 73–87
[2018-10-05] MEDS: ONDANSETRON HCL 4 MG/2 ML VIAL IVP PRN ×2 (03:00→09:41)
[2018-10-05] MEDS: LEVOTHYROXINE SODIUM 125 MCG TABLET PO SCH (06:02)
[2018-10-05] MEDS: ASPIRIN 81 MG CHEWABLE TABLET PO SCH (09:21)
[2018-10-05] MEDS: FAMOTIDINE 20 MG TABLET PO SCH (09:21)
[2018-10-05] MEDS: SERTRALINE HCL 100 MG TABLET PO SCH (09:21)
[2018-10-05] MEDS: CARVEDILOL 3.125 MG TABLET PO SCH ×2 (09:21→20:22)
[2018-10-05] MEDS: ISOSORBIDE MONONITRATE 30 MG ER TABLET PO SCH (09:21)
[2018-10-05] MEDS: ATORVASTATIN CALCIUM 40 MG TABLET PO SCH (09:21)
[2018-10-05] MEDS: ESTROGENS,CONJUGATED 0.625 MG TABLET PO SCH (09:21)
[2018-10-05] MEDS: DOCUSATE SODIUM 100 MG CAPSULE PO SCH ×2 (09:21→20:22)
[2018-10-05] MEDS: FERROUS SULFATE 325 MG EC TABLET PO SCH ×3 (09:21→18:10)
[2018-10-05] MEDS: CLOPIDOGREL BISULFATE 75 MG TABLET PO SCH (09:21)
[2018-10-05] MEDS: METHOCARBAMOL 500 MG TABLET PO SCH ×4 (09:21→20:22)
[2018-10-05] MEDS: ARIPiprazole 10 MG TABLET PO SCH (09:21)
[2018-10-05] MEDS: MUPIROCIN CALCIUM 2% 22 GM OINTMENT NASAL SCH ×2 (09:22→20:22)
[2018-10-05] MEDS: MELOXICAM 7.5 MG TABLET PO SCH (09:22)
[2018-10-05] MEDS: PANTOPRAZOLE SODIUM 40 MG/VIAL IVP SCH (09:22)
[2018-10-05] MEDS: HEPARIN SODIUM,PORCINE 5,000 UNITS/ML VIAL SQ SCH ×3 (09:22→23:56)
[2018-10-05] MEDS ORDERED: HYDROCODONE/ACETAMINOPHEN 5-325 MG TABLET PO PRN (11:00)
[2018-10-05] MEDS ORDERED: SODIUM CHLORIDE 0.9% 1,000 ML IV ONE (11:00)
[2018-10-05] MEDS: HYDROCODONE/ACETAMINOPHEN 5-325 MG TABLET PO PRN ×3 (11:35→23:56)
[2018-10-05] MEDS: CefTRIAXone SODIUM 1 GM in DEXTROSE 5%-WATER 10 ML IV SCH (11:36)
[2018-10-05] MEDS: ZOLPIDEM TARTRATE 5 MG TABLET PO PRN (20:22)
[2018-10-06] MEDS: ONDANSETRON HCL 4 MG/2 ML VIAL IVP PRN (04:39)
[2018-10-06 04:55] VITALS: BP 114/76
[2018-10-06] MEDS: LEVOTHYROXINE SODIUM 125 MCG TABLET PO SCH (05:57)
[2018-10-06 06:29] LABS: HEMATOCRIT 35.3 % (36-46); LYMPHOCYTES # (AUTO) 1.6 K/uL (1.0-4.8); LYMPHOCYTES % (AUTO) 34.8 % (22.0-44.0); MEAN CORPUSCULAR HEMOGLOBIN 32.2 pg (26.0-34.0); MEAN CORPUSCULAR HGB CONC 33.9 G/dL (31.0-37.0); MEAN CORPUSCULAR VOLUME 95 fL (80-100); MONOCYTES # (AUTO) 0.3 K/uL (0.1-1.0); NEUTROPHILS # (AUTO) 2.3 K/uL (1.8-7.7); NEUTROPHILS % (AUTO) 51.2 % (40.0-70.0); PLATELET COUNT (AUTO) 286 K/uL (150-450); RED BLOOD CELL COUNT(AUTO) 3.73 MIL/uL (4.00-5.20)
[2018-10-06 06:54] LABS: ANION GAP 3 mmol/L (8-16); CALCIUM, TOTAL 7.9 mg/dL (8.8-10.5); CARBON DIOXIDE 31 mmol/L (22-29); CHLORIDE 102 mmol/L (98-107); CREATININE 0.89 mg/dL (0.60-1.30); GLOMERULAR FILTR. RATE CALC > 60 mL/min (>60); GLUCOSE,RANDOM 74 mg/dL (70-110); POTASSIUM 4.5 mmol/L (3.5-5.1); SODIUM SERUM 136 mmol/L (136-145); UREA NITROGEN, BLOOD 14 mg/dL (7-18)
[2018-10-06 07:49] VITALS: BP 129/76
[2018-10-06] MEDS: PANTOPRAZOLE SODIUM 40 MG/VIAL IVP SCH (08:21)
[2018-10-06] MEDS: MELOXICAM 7.5 MG TABLET PO SCH (08:21)
[2018-10-06] MEDS: FAMOTIDINE 20 MG TABLET PO SCH (08:21)
[2018-10-06] MEDS: ISOSORBIDE MONONITRATE 30 MG ER TABLET PO SCH (08:21)
[2018-10-06] MEDS: HEPARIN SODIUM,PORCINE 5,000 UNITS/ML VIAL SQ SCH (08:21)
[2018-10-06] MEDS: ATORVASTATIN CALCIUM 40 MG TABLET PO SCH (08:21)
[2018-10-06] MEDS: SERTRALINE HCL 100 MG TABLET PO SCH (08:21)
[2018-10-06] MEDS: CARVEDILOL 3.125 MG TABLET PO SCH (08:21)
[2018-10-06] MEDS: MUPIROCIN CALCIUM 2% 22 GM OINTMENT NASAL SCH (08:21)
[2018-10-06] MEDS: CLOPIDOGREL BISULFATE 75 MG TABLET PO SCH (08:21)
[2018-10-06] MEDS: METHOCARBAMOL 500 MG TABLET PO SCH (08:22)
[2018-10-06] MEDS: ESTROGENS,CONJUGATED 0.625 MG TABLET PO SCH (08:22)
[2018-10-06] MEDS: ASPIRIN 81 MG CHEWABLE TABLET PO SCH (08:22)
[2018-10-06] MEDS: ARIPiprazole 10 MG TABLET PO SCH (08:22)
[2018-10-06] MEDS: FERROUS SULFATE 325 MG EC TABLET PO SCH (08:22)
[2018-10-06] MEDS: DOCUSATE SODIUM 100 MG CAPSULE PO SCH (08:22)
[2018-10-06] MEDS: CefTRIAXone SODIUM 1 GM in DEXTROSE 5%-WATER 10 ML IV SCH (09:59)
== END 2018-10-06 10:45 | disposition home or self-care (01) | DRG 347 ==
LOC: EMS 15:38 → MERGE 21:19 → 6N 21:19 → ICU 23:12 → 6N 10-03 13:35
PROVIDERS: ADMIT Hospitalist; ATTEND Hospitalist
DX: M51.27 Other intervertebral disc displacement, lumbosacral region (principal); R65.11 Systemic inflammatory response syndrome (SIRS) of non-infectious origin with acute organ dysfunction; N17.9 Acute kidney failure, unspecified; E03.9 Hypothyroidism, unspecified; F32.9 Major depressive disorder, single episode, unspecified; G89.29 Other chronic pain; J44.9 Chronic obstructive pulmonary disease, unspecified; N39.0 Urinary tract infection, site not specified; I25.10 Atherosclerotic heart disease of native coronary artery without angina pectoris; F17.200 Nicotine dependence, unspecified, uncomplicated; Z95.5 Presence of coronary angioplasty implant and graft; I10 Essential (primary) hypertension; W01.0XXA Fall on same level from slipping, tripping and stumbling without subsequent striking against object, initial encounter; Y93.89 Activity, other specified; Y92.89 Other specified places as the place of occurrence of the external cause; Y99.8 Other external cause status; Z79.02 Long term (current) use of antithrombotics/antiplatelets; Z90.710 Acquired absence of both cervix and uterus; Z98.84 Bariatric surgery status; Z23 Encounter for immunization
CPT/HCPCS: 72100; 72131; 72148; 74176; 80307; 87040; 87081; 87086; 90686; 90732; 93005; 96361; 96374; 97116; 97162; C9113; G0378; J0696; J1644; J2060; J2370; J2405; J7030; J7060

== ENCOUNTER 2018-10-10 12:48 | Inpatient (IN) | payer OTHER ==
[~2018-10-10] VITALS: Ht 167.6 cm; Wt 58.9 kg
[~2018-10-10 12:48] MED LIST changes: -ASPI81 PO; -DSS100 PO; -MET500 PO; -TEMA15CA PO
[2018-10-10] MEDS ORDERED: TEMA15CA PO (14:52)
[2018-10-10] MEDS ORDERED: MET500 PO (14:52)
[2018-10-10] MEDS ORDERED: LEVO137T24 PO (14:52)
[2018-10-10] MEDS ORDERED: MORPHINE SULFATE 4 MG/ML SYRINGE IVP ONE (15:30)
[2018-10-10] MEDS ORDERED: ONDANSETRON HCL 4 MG/2 ML VIAL IVP ONE (15:30)
[2018-10-10 16:43] LABS: BASOPHILS % (AUTO) 1.1 % (0.0-2.0); EOSINOPHILS % (AUTO) 4.6 % (1.0-6.0); HEMOGLOBIN 12.1 g/dL (12.0-16.0); LYMPHOCYTES % (AUTO) 21.2 % (22.0-44.0); MEAN CORPUSCULAR HEMOGLOBIN 32.4 pg (26.0-34.0); MEAN CORPUSCULAR HGB CONC 34.5 G/dL (31.0-37.0); MEAN CORPUSCULAR VOLUME 94 fL (80-100); MONOCYTES # (AUTO) 0.4 K/uL (0.1-1.0); MONOCYTES % (AUTO) 4.5 % (2.0-9.0); NEUTROPHILS # (AUTO) 6.4 K/uL (1.8-7.7); NEUTROPHILS % (AUTO) 68.6 % (40.0-70.0); PLATELET COUNT (AUTO) 410 K/uL (150-450); RED BLOOD CELL COUNT(AUTO) 3.72 MIL/uL (4.00-5.20); RED CELL DISTRIBUTION WIDTH 13.4 % (11.5-14.5)
[2018-10-10 16:53] LABS: ANION GAP 7 mmol/L (8-16); CALCIUM, TOTAL 8.4 mg/dL (8.8-10.5); CARBON DIOXIDE 27 mmol/L (22-29); CHLORIDE 104 mmol/L (98-107); CREATININE 0.74 mg/dL (0.60-1.30); GLOMERULAR FILTR. RATE CALC > 60 mL/min (>60); GLUCOSE,RANDOM 84 mg/dL (70-110); POTASSIUM 4.3 mmol/L (3.5-5.1); SODIUM SERUM 138 mmol/L (136-145); UREA NITROGEN, BLOOD 16 mg/dL (7-18)
[2018-10-10 17:11] LABS: B-TYPE NATRIURETIC PEPTIDE 168 pg/mL (0-100)
[2018-10-10 17:19] LABS: ALANINE AMINOTRANSFERASE 21 U/L (12-78); ALBUMIN 2.9 g/dL (3.4-5.0); ALKALINE PHOSPHATASE 80 U/L (46-116); ASPARTATE AMINOTRANSFERASE 16 U/L (15-37); BILIRUBIN,TOTAL 0.2 mg/dL (0.1-1.0); CREATINE KINASE, TOTAL ONLY 92 U/L (26-192)
[2018-10-10] MEDS ORDERED: GADOBUTROL 1 MMOL/ML 10 ML VIAL IVP ONE (18:08)
[2018-10-10] MEDS: HYDROmorphone 2 MG/ML SYRINGE IVP PRN ×2 (18:15→22:06)
[2018-10-10] MEDS ORDERED: ONDANSETRON HCL 4 MG/2 ML VIAL IVP PRN (18:15)
[2018-10-10] MEDS ORDERED: OxyCODONE HCL/ACETAMINOPHEN 5-325 MG TABLET PO PRN (18:15)
[2018-10-10] MEDS ORDERED: ACETAMINOPHEN 325 MG TABLET PO PRN (18:15)
[2018-10-10] MEDS ORDERED: 0.9% SODIUM CHLORIDE 10 ML SYRINGE IVP PRN (18:15)
[2018-10-10] MEDS: CLOPIDOGREL BISULFATE 75 MG TABLET PO SCH (20:45)
[2018-10-10] MEDS: ARIPiprazole 10 MG TABLET PO SCH (20:45)
[2018-10-10] MEDS: LISINOPRIL 10 MG TABLET PO SCH (20:45)
[2018-10-10] MEDS: ISOSORBIDE MONONITRATE 30 MG ER TABLET PO SCH (20:45)
[2018-10-10] MEDS: ESTROGENS,CONJUGATED 0.625 MG TABLET PO SCH (20:45)
[2018-10-10] MEDS: AmLODIPine BESYLATE 5 MG TABLET PO SCH (20:45)
[2018-10-10] MEDS ORDERED: BISACODYL 10 MG RECTAL RECTAL SUPPOSITORY PR PRN (20:45)
[2018-10-10] MEDS: IPRATROPIUM BROMIDE 0.5 MG/2.5 ML NEB SOLUTION NEB SCH (21:00)
[2018-10-10] MEDS: CARVEDILOL 3.125 MG TABLET PO SCH (21:00)
[2018-10-10] MEDS ORDERED: DICLOFENAC SODIUM 75 MG DR TABLET PO SCH (21:00)
[2018-10-10] MEDS: ALBUTEROL SULFATE 2.5 MG/0.5 ML NEB SOLUTION NEB SCH (21:00)
[2018-10-10] MEDS: DICLOFENAC SODIUM 25 MG DR TABLET PO SCH (21:00)
[2018-10-10] MEDS ORDERED: LORazepam 2 MG TABLET PO ONE (21:30)
[2018-10-10 21:50] VITALS: BP 100/68
[2018-10-10] MEDS: FAMOTIDINE 20 MG TABLET PO SCH (22:05)
[2018-10-10] MEDS: TEMAZEPAM 15 MG CAPSULE PO SCH (22:06)
[2018-10-10] MEDS: ATORVASTATIN CALCIUM 40 MG TABLET PO SCH (22:06)
[2018-10-10] MEDS: DOCUSATE SODIUM 100 MG CAPSULE PO SCH (22:06)
[2018-10-10] MEDS: ENOXAPARIN SODIUM 40 MG/0.4 ML PF SYRINGE SQ SCH (22:07)
[2018-10-11] MEDS: METHOCARBAMOL 500 MG TABLET PO SCH ×2 (00:53→08:10)
[2018-10-11] MEDS: HYDROmorphone 2 MG/ML SYRINGE IVP PRN ×2 (02:00→06:02)
[2018-10-11 04:46] VITALS: BP 114/73
[2018-10-11 05:42] LABS: BASOPHILS % (AUTO) 0.9 % (0.0-2.0); EOSINOPHILS % (AUTO) 4.4 % (1.0-6.0); HEMATOCRIT 38.3 % (36-46); HEMOGLOBIN 13.1 g/dL (12.0-16.0); LYMPHOCYTES # (AUTO) 2.1 K/uL (1.0-4.8); LYMPHOCYTES % (AUTO) 28.3 % (22.0-44.0); MEAN CORPUSCULAR HEMOGLOBIN 32.7 pg (26.0-34.0); MEAN CORPUSCULAR HGB CONC 34.3 G/dL (31.0-37.0); MEAN CORPUSCULAR VOLUME 95 fL (80-100); MONOCYTES # (AUTO) 0.4 K/uL (0.1-1.0); MONOCYTES % (AUTO) 4.8 % (2.0-9.0); NEUTROPHILS # (AUTO) 4.6 K/uL (1.8-7.7); NEUTROPHILS % (AUTO) 61.6 % (40.0-70.0); PLATELET COUNT (AUTO) 419 K/uL (150-450); RED BLOOD CELL COUNT(AUTO) 4.02 MIL/uL (4.00-5.20); RED CELL DISTRIBUTION WIDTH 13.8 % (11.5-14.5)
[2018-10-11 05:49] LABS: ALANINE AMINOTRANSFERASE 19 U/L (12-78); ALBUMIN 2.9 g/dL (3.4-5.0); ALKALINE PHOSPHATASE 88 U/L (46-116); ANION GAP 2 mmol/L (8-16); ASPARTATE AMINOTRANSFERASE 14 U/L (15-37); BILIRUBIN,TOTAL 0.2 mg/dL (0.1-1.0); CALCIUM, TOTAL 8.3 mg/dL (8.8-10.5); CARBON DIOXIDE 32 mmol/L (22-29); CHLORIDE 103 mmol/L (98-107); CREATININE 0.87 mg/dL (0.60-1.30); GLOMERULAR FILTR. RATE CALC > 60 mL/min (>60); GLUCOSE,RANDOM 74 mg/dL (70-110); POTASSIUM 4.5 mmol/L (3.5-5.1); SODIUM SERUM 137 mmol/L (136-145); TOTAL PROTEIN, SERUM 6.3 g/dL (6.4-8.2); UREA NITROGEN, BLOOD 14 mg/dL (7-18)
[2018-10-11] MEDS: LEVOTHYROXINE SODIUM 137 MCG TABLET PO SCH (06:02)
[2018-10-11 07:44] VITALS: BP 128/77
[2018-10-11] MEDS: ARIPiprazole 10 MG TABLET PO SCH (08:07)
[2018-10-11] MEDS: DOCUSATE SODIUM 100 MG CAPSULE PO SCH ×2 (08:07→20:08)
[2018-10-11] MEDS: DICLOFENAC SODIUM 25 MG DR TABLET PO SCH ×2 (08:07→20:08)
[2018-10-11] MEDS: ESTROGENS,CONJUGATED 0.625 MG TABLET PO SCH (08:07)
[2018-10-11] MEDS: CLOPIDOGREL BISULFATE 75 MG TABLET PO SCH (08:07)
[2018-10-11] MEDS: AmLODIPine BESYLATE 5 MG TABLET PO SCH (08:07)
[2018-10-11] MEDS: ISOSORBIDE MONONITRATE 30 MG ER TABLET PO SCH (08:07)
[2018-10-11] MEDS: FAMOTIDINE 20 MG TABLET PO SCH ×2 (08:07→20:08)
[2018-10-11] MEDS: LISINOPRIL 10 MG TABLET PO SCH (08:08)
[2018-10-11] MEDS: ENOXAPARIN SODIUM 40 MG/0.4 ML PF SYRINGE SQ SCH (08:08)
[2018-10-11] MEDS: ATORVASTATIN CALCIUM 40 MG TABLET PO SCH (08:08)
[2018-10-11] MEDS: CARVEDILOL 3.125 MG TABLET PO SCH ×2 (08:08→21:00)
[2018-10-11] MEDS: ASPIRIN 325 MG EC TABLET PO SCH (08:08)
[2018-10-11] MEDS: FERROUS SULFATE 325 MG EC TABLET PO SCH ×3 (08:08→17:48)
[2018-10-11] MEDS: OxyCODONE HCL 10 MG IR TABLET PO PRN ×4 (08:09→20:07)
[2018-10-11] MEDS: IPRATROPIUM BROMIDE 0.5 MG/2.5 ML NEB SOLUTION NEB SCH ×4 (09:00→21:00)
[2018-10-11] MEDS: ALBUTEROL SULFATE 2.5 MG/0.5 ML NEB SOLUTION NEB SCH ×4 (09:00→21:00)
[2018-10-11 11:30] VITALS: BP 131/78
[2018-10-11] MEDS: CARISOPRODOL 350 MG TABLET PO PRN ×2 (15:25→22:52)
[2018-10-11 16:13] VITALS: BP 126/75
[2018-10-11 19:44] VITALS: BP 106/71
[2018-10-11] MEDS: TEMAZEPAM 15 MG CAPSULE PO SCH (21:01)
[2018-10-11 23:58] VITALS: BP 92/63
[2018-10-12] MEDS: OxyCODONE HCL 10 MG IR TABLET PO PRN ×6 (00:36→20:19)
[2018-10-12] MEDS: LEVOTHYROXINE SODIUM 137 MCG TABLET PO SCH (04:22)
[2018-10-12 04:45] VITALS: BP 113/59
[2018-10-12] MEDS: CARISOPRODOL 350 MG TABLET PO PRN ×3 (07:06→22:14)
[2018-10-12 07:53] VITALS: BP 123/62
[2018-10-12] MEDS: ALBUTEROL SULFATE 2.5 MG/0.5 ML NEB SOLUTION NEB SCH ×4 (08:08→20:02)
[2018-10-12] MEDS: IPRATROPIUM BROMIDE 0.5 MG/2.5 ML NEB SOLUTION NEB SCH ×4 (08:08→20:02)
[2018-10-12] MEDS: ASPIRIN 325 MG EC TABLET PO SCH (08:29)
[2018-10-12] MEDS: ESTROGENS,CONJUGATED 0.625 MG TABLET PO SCH (08:29)
[2018-10-12] MEDS: CLOPIDOGREL BISULFATE 75 MG TABLET PO SCH (08:29)
[2018-10-12] MEDS: FERROUS SULFATE 325 MG EC TABLET PO SCH ×3 (08:29→18:05)
[2018-10-12] MEDS: ATORVASTATIN CALCIUM 40 MG TABLET PO SCH (08:29)
[2018-10-12] MEDS: ISOSORBIDE MONONITRATE 30 MG ER TABLET PO SCH (08:29)
[2018-10-12] MEDS: FAMOTIDINE 20 MG TABLET PO SCH ×2 (08:29→20:19)
[2018-10-12] MEDS: ARIPiprazole 10 MG TABLET PO SCH (08:29)
[2018-10-12] MEDS: CARVEDILOL 3.125 MG TABLET PO SCH ×2 (08:29→20:21)
[2018-10-12] MEDS: AmLODIPine BESYLATE 5 MG TABLET PO SCH (08:29)
[2018-10-12] MEDS: LISINOPRIL 10 MG TABLET PO SCH (08:29)
[2018-10-12] MEDS: DOCUSATE SODIUM 100 MG CAPSULE PO SCH ×2 (08:29→20:19)
[2018-10-12] MEDS: DICLOFENAC SODIUM 25 MG DR TABLET PO SCH ×2 (08:29→20:19)
[2018-10-12] MEDS: ENOXAPARIN SODIUM 40 MG/0.4 ML PF SYRINGE SQ SCH (08:30)
[2018-10-12 11:20] VITALS: BP 105/57
[2018-10-12 15:38] VITALS: BP 102/70
[2018-10-12 19:44] VITALS: BP 104/62
[2018-10-12] MEDS: TEMAZEPAM 15 MG CAPSULE PO SCH (20:21)
[2018-10-12 23:10] VITALS: BP 92/57
[2018-10-13] MEDS: OxyCODONE HCL 10 MG IR TABLET PO PRN ×3 (01:03→09:14)
[2018-10-13] MEDS: CARISOPRODOL 350 MG TABLET PO PRN ×2 (04:09→11:38)
[2018-10-13 04:20] VITALS: BP 120/60
[2018-10-13] MEDS: LEVOTHYROXINE SODIUM 137 MCG TABLET PO SCH (05:24)
[2018-10-13 07:45] VITALS: BP 107/65
[2018-10-13] MEDS: ASPIRIN 325 MG EC TABLET PO SCH (08:44)
[2018-10-13] MEDS: FAMOTIDINE 20 MG TABLET PO SCH (08:44)
[2018-10-13] MEDS: DICLOFENAC SODIUM 25 MG DR TABLET PO SCH (08:44)
[2018-10-13] MEDS: ISOSORBIDE MONONITRATE 30 MG ER TABLET PO SCH (08:44)
[2018-10-13] MEDS: AmLODIPine BESYLATE 5 MG TABLET PO SCH (08:44)
[2018-10-13] MEDS: CLOPIDOGREL BISULFATE 75 MG TABLET PO SCH (08:44)
[2018-10-13] MEDS: FERROUS SULFATE 325 MG EC TABLET PO SCH ×2 (08:45→11:44)
[2018-10-13] MEDS: LISINOPRIL 10 MG TABLET PO SCH (08:45)
[2018-10-13] MEDS: ESTROGENS,CONJUGATED 0.625 MG TABLET PO SCH (08:45)
[2018-10-13] MEDS: ATORVASTATIN CALCIUM 40 MG TABLET PO SCH (08:45)
[2018-10-13] MEDS: CARVEDILOL 3.125 MG TABLET PO SCH (08:45)
[2018-10-13] MEDS: DOCUSATE SODIUM 100 MG CAPSULE PO SCH (08:45)
[2018-10-13] MEDS: ENOXAPARIN SODIUM 40 MG/0.4 ML PF SYRINGE SQ SCH (08:46)
[2018-10-13] MEDS: ARIPiprazole 10 MG TABLET PO SCH (08:46)
[2018-10-13] MEDS: ALBUTEROL SULFATE 2.5 MG/0.5 ML NEB SOLUTION NEB SCH (09:00)
[2018-10-13] MEDS: IPRATROPIUM BROMIDE 0.5 MG/2.5 ML NEB SOLUTION NEB SCH (09:00)
[2018-10-13 12:00] VITALS: BP 110/78
== END 2018-10-13 13:15 | disposition left against medical advice (07) | DRG 347 ==
LOC: EMS 12:50 → 6N 19:41
PROVIDERS: ADMIT Internal Medicine; ATTEND Internal Medicine
DX: M54.40 Lumbago with sciatica, unspecified side (principal); E44.0 Moderate protein-calorie malnutrition; Q21.0 Ventricular septal defect; E03.9 Hypothyroidism, unspecified; M51.9 Unspecified thoracic, thoracolumbar and lumbosacral intervertebral disc disorder; F17.200 Nicotine dependence, unspecified, uncomplicated; G89.4 Chronic pain syndrome; I10 Essential (primary) hypertension; I25.10 Atherosclerotic heart disease of native coronary artery without angina pectoris; I25.2 Old myocardial infarction; J44.9 Chronic obstructive pulmonary disease, unspecified; F32.9 Major depressive disorder, single episode, unspecified; Z98.84 Bariatric surgery status; Z87.01 Personal history of pneumonia (recurrent); Z98.1 Arthrodesis status; Z79.899 Other long term (current) drug therapy
CPT/HCPCS: 72158; 87081; 93005; 94640; 96374; 96375; A9585; G0378; J1170; J1650; J2270; J2405

== ENCOUNTER 2018-12-23 10:43 | Inpatient (IN) | payer OTHER ==
[~2018-12-23] VITALS: Ht 167.6 cm; Wt 58.6 kg
[~2018-12-23 10:43] MED LIST changes: -ACET-784 PO; -AMLO-511 PO; -DOCU250C90 PO; -DOXE50 PO; +DSS100 PO; -LISI-661 PO; +MET500 PO; +TEMA15CA PO; -ZOLP10TA7 PO
[2018-12-23 12:28] LABS: ANION GAP 8 mmol/L (8-16); CALCIUM, TOTAL 8.5 mg/dL (8.8-10.5); CARBON DIOXIDE 27 mmol/L (22-29); CHLORIDE 102 mmol/L (98-107); CREATININE 0.66 mg/dL (0.60-1.30); GLOMERULAR FILTR. RATE CALC > 60 mL/min (>60); GLUCOSE,RANDOM 88 mg/dL (70-110); POTASSIUM 3.7 mmol/L (3.5-5.1); SODIUM SERUM 137 mmol/L (136-145); UREA NITROGEN, BLOOD 14 mg/dL (7-18)
[2018-12-23 12:35] LABS: ALANINE AMINOTRANSFERASE 27 U/L (12-78); ALBUMIN 3.2 g/dL (3.4-5.0); ALKALINE PHOSPHATASE 89 U/L (46-116); ASPARTATE AMINOTRANSFERASE 28 U/L (15-37); BILIRUBIN,TOTAL 0.2 mg/dL (0.1-1.0); TOTAL PROTEIN, SERUM 6.8 g/dL (6.4-8.2)
[2018-12-23 12:56] LABS: HEMATOCRIT 37.1 % (36-46); HEMOGLOBIN 12.5 g/dL (12.0-16.0); MEAN CORPUSCULAR HEMOGLOBIN 33.1 pg (26.0-34.0); MEAN CORPUSCULAR VOLUME 98 fL (80-100); RED BLOOD CELL COUNT(AUTO) 3.79 MIL/uL (4.00-5.20)
[2018-12-23 12:57] LABS: EOSINOPHILS % (AUTO) 4.3 % (1.0-6.0); LYMPHOCYTES # (AUTO) 2.5 K/uL (1.0-4.8); LYMPHOCYTES % (AUTO) 38.8 % (22.0-44.0); MEAN CORPUSCULAR HGB CONC 33.7 G/dL (31.0-37.0); MONOCYTES # (AUTO) 0.4 K/uL (0.1-1.0); MONOCYTES % (AUTO) 5.9 % (2.0-9.0); NEUTROPHILS # (AUTO) 3.2 K/uL (1.8-7.7); PLATELET COUNT (AUTO) 273 K/uL (150-450); RED CELL DISTRIBUTION WIDTH 14.6 % (11.5-14.5)
[2018-12-23] MEDS ORDERED: NITROGLYCERIN 2% (1 GM=INCH) PACKET TP ONE (13:00)
[2018-12-23] MEDS ORDERED: ASPIRIN 81 MG CHEWABLE TABLET PO ONE (13:00)
[2018-12-23] MEDS ORDERED: MORPHINE SULFATE 2 MG/ML SYRINGE IVP ONE (14:15)
[2018-12-23] MEDS ORDERED: ONDANSETRON HCL 4 MG/2 ML VIAL IVP ONE (14:15)
[2018-12-23] MEDS ORDERED: ACETAMINOPHEN 325 MG TABLET PO PRN ×2 (19:45→23:00)
[2018-12-23] MEDS ORDERED: 0.9% SODIUM CHLORIDE 10 ML SYRINGE IVP PRN (19:45)
[2018-12-23 20:27] VITALS: BP 109/71
[2018-12-23] MEDS: HYDROCODONE/ACETAMINOPHEN 10-325 MG TABLET PO PRN (21:08)
[2018-12-23] MEDS: TEMAZEPAM 15 MG CAPSULE PO PRN (22:08)
[2018-12-23] MEDS ORDERED: BISACODYL 10 MG RECTAL RECTAL SUPPOSITORY PR PRN (23:00)
[2018-12-23] MEDS ORDERED: DICLOFENAC SODIUM 75 MG DR TABLET PO SCH (23:00)
[2018-12-23] MEDS ORDERED: ONDANSETRON HCL 4 MG/2 ML VIAL IVP PRN (23:00)
[2018-12-23] MEDS ORDERED: FAMOTIDINE 20 MG TABLET PO SCH (23:00)
[2018-12-23] MEDS: TEMAZEPAM 15 MG CAPSULE PO SCH (23:00)
[2018-12-23] MEDS: CARVEDILOL 3.125 MG TABLET PO SCH (23:25)
[2018-12-23] MEDS: DOCUSATE SODIUM 100 MG CAPSULE PO SCH (23:25)
[2018-12-23] MEDS: DICLOFENAC SODIUM 25 MG DR TABLET PO SCH (23:25)
[2018-12-23 23:33] LABS: BASOPHILS % (AUTO) 1.3 % (0.0-2.0); EOSINOPHILS % (AUTO) 5.8 % (1.0-6.0); HEMATOCRIT 35.2 % (36-46); LYMPHOCYTES # (AUTO) 2.2 K/uL (1.0-4.8); LYMPHOCYTES % (AUTO) 36.8 % (22.0-44.0); MEAN CORPUSCULAR HEMOGLOBIN 33.1 pg (26.0-34.0); MEAN CORPUSCULAR VOLUME 97 fL (80-100); MONOCYTES # (AUTO) 0.4 K/uL (0.1-1.0); NEUTROPHILS % (AUTO) 49.1 % (40.0-70.0); PLATELET COUNT (AUTO) 349 K/uL (150-450); RED BLOOD CELL COUNT(AUTO) 3.62 MIL/uL (4.00-5.20); RED CELL DISTRIBUTION WIDTH 14.4 % (11.5-14.5)
[2018-12-23 23:42] LABS: INR 0.9 (0.9-1.1); PROTHROMBIN TIME 9.9 SEC (9.4-11.6)
[2018-12-23 23:48] LABS: ALANINE AMINOTRANSFERASE 22 U/L (12-78); ALBUMIN 2.6 g/dL (3.4-5.0); ALKALINE PHOSPHATASE 80 U/L (46-116); ANION GAP 8 mmol/L (8-16); ASPARTATE AMINOTRANSFERASE 17 U/L (15-37); BILIRUBIN,TOTAL 0.2 mg/dL (0.1-1.0); CALCIUM, TOTAL 8.2 mg/dL (8.8-10.5); CARBON DIOXIDE 27 mmol/L (22-29); CHLORIDE 104 mmol/L (98-107); CREATININE 0.73 mg/dL (0.60-1.30); GLOMERULAR FILTR. RATE CALC > 60 mL/min (>60); GLUCOSE,RANDOM 63 mg/dL (70-110); POTASSIUM 3.9 mmol/L (3.5-5.1); SODIUM SERUM 139 mmol/L (136-145); TOTAL PROTEIN, SERUM 5.4 g/dL (6.4-8.2); UREA NITROGEN, BLOOD 14 mg/dL (7-18)
[2018-12-24] VITALS (10 sets, daily range): BP systolic 88–107; BP diastolic 50–73
[2018-12-24] MEDS: HYDROCODONE/ACETAMINOPHEN 10-325 MG TABLET PO PRN ×5 (01:48→21:38)
[2018-12-24] MEDS: ALBUTEROL SULFATE 2.5 MG/0.5 ML NEB SOLUTION NEB SCH ×4 (02:00→20:06)
[2018-12-24] MEDS: IPRATROPIUM BROMIDE 0.5 MG/2.5 ML NEB SOLUTION NEB SCH ×4 (02:00→20:05)
[2018-12-24] MEDS: LEVOTHYROXINE SODIUM 125 MCG TABLET PO SCH (06:33)
[2018-12-24 06:37] LABS: BASOPHILS % (AUTO) 1.4 % (0.0-2.0); EOSINOPHILS % (AUTO) 6.5 % (1.0-6.0); HEMATOCRIT 34.7 % (36-46); HEMOGLOBIN 11.8 g/dL (12.0-16.0); LYMPHOCYTES # (AUTO) 2.1 K/uL (1.0-4.8); LYMPHOCYTES % (AUTO) 42.6 % (22.0-44.0); MEAN CORPUSCULAR HEMOGLOBIN 33.2 pg (26.0-34.0); MEAN CORPUSCULAR HGB CONC 33.9 G/dL (31.0-37.0); MEAN CORPUSCULAR VOLUME 98 fL (80-100); MONOCYTES # (AUTO) 0.3 K/uL (0.1-1.0); MONOCYTES % (AUTO) 6.6 % (2.0-9.0); NEUTROPHILS # (AUTO) 2.1 K/uL (1.8-7.7); NEUTROPHILS % (AUTO) 42.9 % (40.0-70.0); PLATELET COUNT (AUTO) 332 K/uL (150-450); RED BLOOD CELL COUNT(AUTO) 3.54 MIL/uL (4.00-5.20); RED CELL DISTRIBUTION WIDTH 14.6 % (11.5-14.5)
[2018-12-24 07:05] LABS: ALANINE AMINOTRANSFERASE 22 U/L (12-78); ALBUMIN 2.4 g/dL (3.4-5.0); ALKALINE PHOSPHATASE 70 U/L (46-116); ANION GAP 5 mmol/L (8-16); ASPARTATE AMINOTRANSFERASE 16 U/L (15-37); BILIRUBIN,TOTAL 0.2 mg/dL (0.1-1.0); CARBON DIOXIDE 29 mmol/L (22-29); CHLORIDE 103 mmol/L (98-107); CREATININE 0.75 mg/dL (0.60-1.30); GLOMERULAR FILTR. RATE CALC > 60 mL/min (>60); GLUCOSE,RANDOM 71 mg/dL (70-110); POTASSIUM 3.8 mmol/L (3.5-5.1); SODIUM SERUM 137 mmol/L (136-145); TOTAL PROTEIN, SERUM 5.1 g/dL (6.4-8.2); UREA NITROGEN, BLOOD 15 mg/dL (7-18)
[2018-12-24] MEDS: ATORVASTATIN CALCIUM 40 MG TABLET PO SCH (09:03)
[2018-12-24] MEDS: CARVEDILOL 3.125 MG TABLET PO SCH ×2 (09:03→20:28)
[2018-12-24] MEDS: ASPIRIN 81 MG EC TABLET PO SCH (09:03)
[2018-12-24] MEDS: DOCUSATE SODIUM 100 MG CAPSULE PO SCH ×2 (09:03→20:30)
[2018-12-24] MEDS: CLOPIDOGREL BISULFATE 75 MG TABLET PO SCH (09:03)
[2018-12-24] MEDS: FERROUS SULFATE 325 MG EC TABLET PO SCH ×3 (09:03→17:35)
[2018-12-24] MEDS: DICLOFENAC SODIUM 25 MG DR TABLET PO SCH ×2 (09:04→20:31)
[2018-12-24] MEDS: ENOXAPARIN SODIUM 40 MG/0.4 ML PF SYRINGE SQ SCH (09:04)
[2018-12-24] MEDS: ARIPiprazole 10 MG TABLET PO SCH (09:05)
[2018-12-24] MEDS: METHOCARBAMOL 500 MG TABLET PO SCH ×4 (09:05→20:30)
[2018-12-24] MEDS: ESTROGENS,CONJUGATED 0.625 MG TABLET PO SCH (09:05)
[2018-12-24] MEDS: SERTRALINE HCL 100 MG TABLET PO SCH (09:07)
[2018-12-24] MEDS: ISOSORBIDE MONONITRATE 30 MG ER TABLET PO SCH (11:27)
[2018-12-24] MEDS: LANSOPRAZOLE 30 MG SOLUBLE TABLET PO SCH (11:28)
[2018-12-24] MEDS: TRIAMCINOLONE 0.1% 15 GM OINTMENT TP SCH ×2 (17:35→20:32)
[2018-12-24] MEDS: TEMAZEPAM 15 MG CAPSULE PO SCH (21:00)
[2018-12-24] MEDS: TEMAZEPAM 15 MG CAPSULE PO PRN (23:59)
[2018-12-25] MEDS: HYDROCODONE/ACETAMINOPHEN 10-325 MG TABLET PO PRN ×3 (01:57→10:31)
[2018-12-25] MEDS: IPRATROPIUM BROMIDE 0.5 MG/2.5 ML NEB SOLUTION NEB SCH ×3 (02:00→14:00)
[2018-12-25] MEDS: ALBUTEROL SULFATE 2.5 MG/0.5 ML NEB SOLUTION NEB SCH ×3 (02:00→14:00)
[2018-12-25] MEDS ORDERED: -PHARMACY VACCINE NOTE- MISC ONE (02:30)
[2018-12-25 06:11] VITALS: BP 113/66
[2018-12-25] MEDS: LEVOTHYROXINE SODIUM 125 MCG TABLET PO SCH (06:27)
[2018-12-25 07:54] VITALS: BP 106/68
[2018-12-25] MEDS: CLOPIDOGREL BISULFATE 75 MG TABLET PO SCH (08:01)
[2018-12-25] MEDS: ENOXAPARIN SODIUM 40 MG/0.4 ML PF SYRINGE SQ SCH (08:01)
[2018-12-25] MEDS: ASPIRIN 81 MG EC TABLET PO SCH (08:01)
[2018-12-25] MEDS: TRIAMCINOLONE 0.1% 15 GM OINTMENT TP SCH (08:02)
[2018-12-25] MEDS: FERROUS SULFATE 325 MG EC TABLET PO SCH ×2 (08:02→12:20)
[2018-12-25] MEDS: LANSOPRAZOLE 30 MG SOLUBLE TABLET PO SCH (08:02)
[2018-12-25] MEDS: ATORVASTATIN CALCIUM 40 MG TABLET PO SCH (08:02)
[2018-12-25] MEDS: DOCUSATE SODIUM 100 MG CAPSULE PO SCH (08:02)
[2018-12-25] MEDS: ARIPiprazole 10 MG TABLET PO SCH (08:02)
[2018-12-25] MEDS: ESTROGENS,CONJUGATED 0.625 MG TABLET PO SCH (08:03)
[2018-12-25] MEDS: DICLOFENAC SODIUM 25 MG DR TABLET PO SCH (08:03)
[2018-12-25] MEDS: METHOCARBAMOL 500 MG TABLET PO SCH ×2 (08:03→12:19)
[2018-12-25] MEDS: SERTRALINE HCL 100 MG TABLET PO SCH (08:04)
[2018-12-25] MEDS ORDERED: MUPIROCIN CALCIUM 2% 22 GM OINTMENT NASAL SCH (10:15)
[2018-12-25 11:14] VITALS: BP 123/62
[2018-12-25] MEDS: ISOSORBIDE MONONITRATE 30 MG ER TABLET PO SCH (12:20)
[2018-12-25] MEDS: CARVEDILOL 3.125 MG TABLET PO SCH (12:20)
[2018-12-25] MEDS ORDERED: HYDR-4455 PO (13:30)
[2018-12-25] MEDS ORDERED: IPRAHFA IH (13:31)
[2018-12-25] MEDS ORDERED: MUPI1OIN4 NS (13:32)
== END 2018-12-25 14:45 | disposition home or self-care (01) | DRG 203 ==
LOC: EMS 10:45 → 5N 18:45 → 5S 12-24 08:43
PROVIDERS: ADMIT Internal Medicine; ATTEND Internal Medicine
DX: M94.0 Chondrocostal junction syndrome [Tietze] (principal); E03.9 Hypothyroidism, unspecified; I25.10 Atherosclerotic heart disease of native coronary artery without angina pectoris; J44.9 Chronic obstructive pulmonary disease, unspecified; M50.30 Other cervical disc degeneration, unspecified cervical region; F32.9 Major depressive disorder, single episode, unspecified; F17.200 Nicotine dependence, unspecified, uncomplicated; G89.4 Chronic pain syndrome; I10 Essential (primary) hypertension; Z98.84 Bariatric surgery status; Z86.14 Personal history of Methicillin resistant Staphylococcus aureus infection; Z98.1 Arthrodesis status
CPT/HCPCS: 87081; 93005; 94640; 96374; 96375; G0378; J1650; J2270; J2405

== ENCOUNTER 2019-01-11 09:37 | Emergency (ER) | payer OTHER ==
[~2019-01-11] VITALS: Ht 167.6 cm; Wt 61.8 kg
[~2019-01-11 09:37] MED LIST changes: -ATOR40TA28 PO; -CLOP75 PO; +CLOP75TA17 PO; +HYDR-4455 PO; -HYDR25TA PO; +IPRAHFA IH; +MUPI1OIN4 NS
[2019-01-11] MEDS: ONDANSETRON HCL 4 MG TABLET PO ONE (10:09)
[2019-01-11] MEDS: HYDROCODONE/ACETAMINOPHEN 5-325 MG TABLET PO ONE (10:09)
[2019-01-11 10:22] LABS: BASOPHILS % (AUTO) 0.9 % (0.0-2.0); EOSINOPHILS % (AUTO) 3.1 % (1.0-6.0); HEMATOCRIT 36.5 % (36-46); HEMOGLOBIN 12.2 g/dL (12.0-16.0); LYMPHOCYTES # (AUTO) 1.2 K/uL (1.0-4.8); MEAN CORPUSCULAR HEMOGLOBIN 33.1 pg (26.0-34.0); MEAN CORPUSCULAR HGB CONC 33.5 G/dL (31.0-37.0); MEAN CORPUSCULAR VOLUME 99 fL (80-100); MONOCYTES # (AUTO) 0.3 K/uL (0.1-1.0); MONOCYTES % (AUTO) 3.3 % (2.0-9.0); NEUTROPHILS # (AUTO) 5.9 K/uL (1.8-7.7); NEUTROPHILS % (AUTO) 76.7 % (40.0-70.0); PLATELET COUNT (AUTO) 434 K/uL (150-450); RED BLOOD CELL COUNT(AUTO) 3.69 MIL/uL (4.00-5.20); RED CELL DISTRIBUTION WIDTH 14.9 % (11.5-14.5)
[2019-01-11 10:33] LABS: ANION GAP 10 mmol/L (8-16); CALCIUM, TOTAL 8.7 mg/dL (8.8-10.5); CARBON DIOXIDE 25 mmol/L (22-29); CHLORIDE 101 mmol/L (98-107); CREATININE 0.83 mg/dL (0.60-1.30); GLOMERULAR FILTR. RATE CALC > 60 mL/min (>60); GLUCOSE,RANDOM 84 mg/dL (70-110); POTASSIUM 4.4 mmol/L (3.5-5.1); SODIUM SERUM 136 mmol/L (136-145); UREA NITROGEN, BLOOD 19 mg/dL (7-18)
[2019-01-11 11:43] VITALS: BP 110/62
== END 2019-01-11 11:46 | disposition home or self-care (01) ==
LOC: EMS 09:41
DX: R07.89 Other chest pain (principal); I25.10 Atherosclerotic heart disease of native coronary artery without angina pectoris; J44.9 Chronic obstructive pulmonary disease, unspecified; F32.9 Major depressive disorder, single episode, unspecified; E03.9 Hypothyroidism, unspecified; I25.2 Old myocardial infarction; I10 Essential (primary) hypertension; F17.210 Nicotine dependence, cigarettes, uncomplicated; Z79.82 Long term (current) use of aspirin
CPT/HCPCS: 36415; 71045; 80048; 84484; 85025; 93005; 99285; Q0162

== ENCOUNTER 2019-01-20 12:45 | Emergency (ER) | payer OTHER ==
[~2019-01-20] VITALS: Ht 170.2 cm; Wt 68.2 kg
[2019-01-20 13:53] LABS: BASOPHILS % (AUTO) 1.4 % (0.0-2.0); EOSINOPHILS % (AUTO) 6.7 % (1.0-6.0); HEMATOCRIT 35.5 % (36-46); HEMOGLOBIN 12.1 g/dL (12.0-16.0); LYMPHOCYTES # (AUTO) 1.4 K/uL (1.0-4.8); LYMPHOCYTES % (AUTO) 25.9 % (22.0-44.0); MEAN CORPUSCULAR HEMOGLOBIN 34.1 pg (26.0-34.0); MEAN CORPUSCULAR HGB CONC 34.1 G/dL (31.0-37.0); MEAN CORPUSCULAR VOLUME 100 fL (80-100); MONOCYTES # (AUTO) 0.4 K/uL (0.1-1.0); MONOCYTES % (AUTO) 6.9 % (2.0-9.0); NEUTROPHILS # (AUTO) 3.1 K/uL (1.8-7.7); NEUTROPHILS % (AUTO) 59.1 % (40.0-70.0); PLATELET COUNT (AUTO) 347 K/uL (150-450); RED BLOOD CELL COUNT(AUTO) 3.55 MIL/uL (4.00-5.20); RED CELL DISTRIBUTION WIDTH 13.8 % (11.5-14.5)
[2019-01-20 14:02] LABS: ANION GAP 7 mmol/L (8-16); CALCIUM, TOTAL 8.5 mg/dL (8.8-10.5); CARBON DIOXIDE 24 mmol/L (22-29); CHLORIDE 103 mmol/L (98-107); CREATININE 0.89 mg/dL (0.60-1.30); GLOMERULAR FILTR. RATE CALC > 60 mL/min (>60); GLUCOSE,RANDOM 75 mg/dL (70-110); POTASSIUM 4.2 mmol/L (3.5-5.1); SODIUM SERUM 134 mmol/L (136-145); UREA NITROGEN, BLOOD 20 mg/dL (7-18)
[2019-01-20 14:05] LABS: INR 0.9 (0.9-1.1); PROTHROMBIN TIME 9.7 SEC (9.4-11.6)
[2019-01-20 14:22] LABS: B-TYPE NATRIURETIC PEPTIDE 38 pg/mL (0-100)
[2019-01-20 14:28] LABS: ALANINE AMINOTRANSFERASE 24 U/L (12-78); ALBUMIN 3.3 g/dL (3.4-5.0); ALKALINE PHOSPHATASE 121 U/L (46-116); ASPARTATE AMINOTRANSFERASE 19 U/L (15-37); BILIRUBIN,TOTAL 0.3 mg/dL (0.1-1.0); CREATINE KINASE, TOTAL ONLY 109 U/L (26-192); TOTAL PROTEIN, SERUM 6.5 g/dL (6.4-8.2)
[2019-01-20] MEDS ORDERED: HYDROCODONE/ACETAMINOPHEN 5-325 MG TABLET PO ONE (16:45)
[2019-01-20 17:01] VITALS: BP 117/69
[2019-01-20 17:13] LABS: APPEARANCE,URINE CLEAR (CLEAR); BILIRUBIN,URINE NEGATIVE (NEGATIVE); GLUCOSE, URINE (UA) NEGATIVE (NEGATIVE); KETONES,URINE NEGATIVE (NEGATIVE); LEUKOCYTE ESTERASE ,URINE NEGATIVE (NEGATIVE); NITRATE,URINE NEGATIVE (NEGATIVE); OCCULT BLOOD,URINE NEGATIVE (NEGATIVE); PH,URINE 5.5 (5.0-8.0); PROTEIN,URINE NEGATIVE (NEGATIVE); UROBILINOGEN,URINE 0.2 mg/dL (<=1.0)
== END 2019-01-20 17:02 | disposition home or self-care (01) ==
LOC: EMS 12:46
DX: R07.89 Other chest pain (principal); M54.5 Low back pain; I25.10 Atherosclerotic heart disease of native coronary artery without angina pectoris; J44.9 Chronic obstructive pulmonary disease, unspecified; I10 Essential (primary) hypertension; I25.2 Old myocardial infarction; F32.9 Major depressive disorder, single episode, unspecified; E03.9 Hypothyroidism, unspecified; F17.210 Nicotine dependence, cigarettes, uncomplicated; Z79.82 Long term (current) use of aspirin
CPT/HCPCS: 93005

== ENCOUNTER 2019-04-14 10:10 | Emergency (ER) | payer OTHER ==
[~2019-04-14] VITALS: Ht 167.6 cm; Wt 60.9 kg
[~2019-04-14 10:10] MED LIST changes: -CLOP75TA17 PO; +CLOP75TA3 PO; -MUPI1OIN4 NS
[2019-04-14 11:48] LABS: EOSINOPHILS % (AUTO) 4.4 % (1.0-6.0); HEMATOCRIT 38.7 % (36-46); HEMOGLOBIN 12.8 g/dL (12.0-16.0); LYMPHOCYTES # (AUTO) 1.7 K/uL (1.0-4.8); LYMPHOCYTES % (AUTO) 24.9 % (22.0-44.0); MEAN CORPUSCULAR HEMOGLOBIN 32.2 pg (26.0-34.0); MEAN CORPUSCULAR HGB CONC 33.2 G/dL (31.0-37.0); MEAN CORPUSCULAR VOLUME 97 fL (80-100); MONOCYTES # (AUTO) 0.4 K/uL (0.1-1.0); MONOCYTES % (AUTO) 5.8 % (2.0-9.0); NEUTROPHILS # (AUTO) 4.3 K/uL (1.8-7.7); NEUTROPHILS % (AUTO) 63.9 % (40.0-70.0); PLATELET COUNT (AUTO) 371 K/uL (150-450); RED BLOOD CELL COUNT(AUTO) 3.98 MIL/uL (4.00-5.20); RED CELL DISTRIBUTION WIDTH 13.2 % (11.5-14.5)
[2019-04-14 11:57] LABS: BILIRUBIN,URINE NEGATIVE (NEGATIVE); GLUCOSE, URINE (UA) NEGATIVE (NEGATIVE); KETONES,URINE NEGATIVE (NEGATIVE); LEUKOCYTE ESTERASE ,URINE NEGATIVE (NEGATIVE); NITRATE,URINE NEGATIVE (NEGATIVE); OCCULT BLOOD,URINE NEGATIVE (NEGATIVE); PH,URINE 5.5 (5.0-8.0); PROTEIN,URINE NEGATIVE (NEGATIVE); UROBILINOGEN,URINE 0.2 mg/dL (<=1.0)
[2019-04-14 12:01] LABS: APPEARANCE,URINE CLEAR (CLEAR)
[2019-04-14 12:02] LABS: ANION GAP 9 mmol/L (8-16); CALCIUM, TOTAL 8.5 mg/dL (8.8-10.5); CARBON DIOXIDE 24 mmol/L (22-29); CHLORIDE 99 mmol/L (98-107); CREATININE 0.93 mg/dL (0.60-1.30); GLOMERULAR FILTR. RATE CALC > 60 mL/min (>60); GLUCOSE,RANDOM 85 mg/dL (70-110); POTASSIUM 4.3 mmol/L (3.5-5.1); SODIUM SERUM 132 mmol/L (136-145); UREA NITROGEN, BLOOD 26 mg/dL (7-18)
[2019-04-14 12:30] LABS: ALANINE AMINOTRANSFERASE 18 U/L (12-78); ALBUMIN 3.3 g/dL (3.4-5.0); ALKALINE PHOSPHATASE 86 U/L (46-116); ASPARTATE AMINOTRANSFERASE 15 U/L (15-37); BILIRUBIN,TOTAL 0.4 mg/dL (0.1-1.0); CREATINE KINASE, TOTAL ONLY 182 U/L (26-192); LIPASE 104 U/L (73-393); TOTAL PROTEIN, SERUM 6.4 g/dL (6.4-8.2)
[2019-04-14 12:34] LABS: B-TYPE NATRIURETIC PEPTIDE 8 pg/mL (0-100)
[2019-04-14] MEDS ORDERED: MORPHINE SULFATE 4 MG/ML SYRINGE IVP ONE (13:00)
[2019-04-14] MEDS ORDERED: SODIUM CHLORIDE 0.9% 1,000 ML IV ONE ×2 (13:00→16:30)
[2019-04-14] MEDS ORDERED: ONDANSETRON HCL 4 MG/2 ML VIAL IVP ONE (13:00)
[2019-04-14] MEDS ORDERED: DOXE100C4 PO (13:21)
[2019-04-14] MEDS ORDERED: LISI-661 PO (13:21)
[2019-04-14] MEDS ORDERED: HYDROCODONE/ACETAMINOPHEN 5-325 MG TABLET PO ONE (16:30)
[2019-04-14] MEDS ORDERED: KETOROLAC TROMETHAMINE 30 MG/ML VIAL IVP ONE (16:30)
[2019-04-14 16:51] VITALS: BP 130/80
== END 2019-04-14 16:57 | disposition home or self-care (01) ==
LOC: EMS 10:12
DX: R07.89 Other chest pain (principal); M50.321 Other cervical disc degeneration at C4-C5 level; M50.323 Other cervical disc degeneration at C6-C7 level; R11.2 Nausea with vomiting, unspecified; M79.2 Neuralgia and neuritis, unspecified; R42 Dizziness and giddiness; I25.10 Atherosclerotic heart disease of native coronary artery without angina pectoris; J44.9 Chronic obstructive pulmonary disease, unspecified; F32.9 Major depressive disorder, single episode, unspecified; I10 Essential (primary) hypertension; E03.9 Hypothyroidism, unspecified; I25.2 Old myocardial infarction; F17.210 Nicotine dependence, cigarettes, uncomplicated; Z79.82 Long term (current) use of aspirin
CPT/HCPCS: 36415; 72125; 80053; 81003; 82550; 83690; 83880; 84484; 85025; 93005; 96361; 96374; 96375; 99285; J1885; J2270; J2405; J7030